=== PATIENT | male | born 1955 | race Caucasian/White ===

== ENCOUNTER 2017-08-26 13:28 | Inpatient (IN) ==
--- NOTE | 2017-08-26 16:18 | Emergency Department Note ---
Disposition Clinical Impression: Liver lesion, right lobe, Abdominal distention Ascites Qualifiers: Ascites type: due to alcoholic cirrhosis Qualified Code(s): K70.31 - Alcoholic cirrhosis of liver with ascites Disposition: Admitted As Inpatient Condition: Good Time of Disposition: 18:27 General Adult HPI - General Chief complaint: ED Abdominal Pain Stated complaint: constipation Time Seen by Provider: 08/26/17 15:34 Source: patient Mode of arrival: ambulatory Limitations: no limitations Nursing Notes Reviewed: Yes Vital Signs Reviewed: Yes - History of Present Illness HPI Narrative: Patient is a 61 year old male that presents to the emergency department for constipation. Patient states that he has been bloated and unable to have a bowel movement for 1 week. Patient states that he was seen about a week ago and was told that he had a urinary tract infection and possible pneumonia and was started on antibiotics. Patient states that his abdomen has continued to become more distended and bloated. Patient states that he has had a temp of about 100. No significant abdominal pain but feels uncomfortable. Patient states that there has been no injuries to the abdomen. Patient states that he use to be a heavy drinker but does not drink like that anymore. Patient reports that he has swelling in bilateral lower extremities but this is normal for him. Pain Scale: 4 - Related Data Home Medications Medication Instructions Recorded Confirmed Aspirin Enteric Coated [Aspirin EC] 81 mg PO DAILY 08/26/17 08/26/17 Cyclobenzaprine HCl 5 mg PO BID PRN 08/26/17 08/26/17 Doxycycline Hyclate 100 mg PO BID 08/26/17 08/26/17 Furosemide [Lasix] 20 mg PO DAILY 08/26/17 08/26/17 Glimepiride [Amaryl] 2 mg PO DAILY 08/26/17 08/26/17 Lisinopril [Zestril] 40 mg PO DAILY 08/26/17 08/26/17 Pioglitazone [Actos] 45 mg PO DAILY 08/26/17 08/26/17 Sulfamethoxazole/Trimeth DS 1 tab PO BID 08/26/17 08/26/17 [Bactrim Ds] Allergies Allergy/AdvReac Type Severity Reaction Status Date / Time shellfish derived Allergy Anaphylaxis Verified 11/08/15 11:29 budesonide [From Symbicort] AdvReac ELEVATED BP Verified 11/08/15 11:29 cilostazol AdvReac SWEATS Verified 11/08/15 11:29 Formoterol [From Symbicort] AdvReac ELEVATED BP Verified 11/08/15 11:29 gabapentin [From Neurontin] AdvReac Confusion Verified 11/08/15 11:29 naproxen [From Naprosyn] AdvReac Nausea Verified 11/08/15 11:29 tramadol AdvReac Nausea Verified 11/08/15 11:29 All systems ED: reviewed and negative except as stated. Constitutional: Denies: fever Cardiovascular: Denies: chest pain Respiratory: Reports: dyspnea Gastrointestinal: Reports: abdominal pain (discomfort), constipation, other ( Distention ) Past Medical History - Past Medical History Medical history: Reports: COPD, diabetes, hypertension, other Surgical history: Reports: herniorrhaphy, other Psychiatric history: Reports: no psych history - Social History Smoking Status: Current every day smoker Smokeless Tobacco Status: No Alcohol use: Reports: heavy Drug use: Reports: none Physical Exam - General Limitations: no limitations General appearance: alert, in no apparent distress - Head Head exam: atraumatic, normocephalic - Eye Eye exam: Present: normal appearance, EOMI - Neck Neck exam: Present: normal inspection, full ROM, trachea midline - Respiratory Respiratory exam: Present: wheezes (Bilaterally). Absent: respiratory distress - Cardiovascular Cardiovascular exam: Present: regular rate, normal rhythm, normal heart sounds, +S1, +S2 - Abdominal Exam Abdominal exam: Present: distention, normal bowel sounds, other (Mild discomfort throughout the abdomen. ). Absent: trauma Abdominal tenderness: Present: diffuse - Extremities Exam Extremities exam: Present: other (1-2+ pitting edema in bilateral lower extremities ) - Neurological Exam Neurological exam: Present: alert, oriented X3 - Psychiatric Psychiatric exam: Present: normal affect, normal mood - Skin Skin exam: Present: warm, dry, intact Course Vital Signs Temperature 97.8 F 08/26/17 13:32 Pulse Rate 94 08/26/17 13:32 Respiratory Rate 22 08/26/17 13:32 Blood Pressure 147/66 08/26/17 13:32 O2 Sat by Pulse Oximetry 97 08/26/17 13:32 Temperature 98.0 F 08/27/17 17:11 Pulse Rate 80 08/27/17 17:11 Respiratory Rate 16 08/27/17 17:11 Blood Pressure 120/65 08/27/17 17:11 O2 Sat by Pulse Oximetry 94 08/27/17 17:11 Oxygen Delivery Oxygen Delivery Room Air Medical Decision Making - MDM Narrative Medical decision making narrative: Due to the patient presenting with abdominal distention and constipation we will obtain laboratory testing including a CBC, BMP, Hepatic panel, Lipase Urinalysis and a CT scan of the abdomen and pelvis. CT scan shows ascites and answer go with hepatic lesions possibly concerning for hepatocellular carcinoma. Urinalysis shows blood in the urine does not show any evidence of infection at this time. Patient does not have an elevated white count. Patient has some elevated LFTs and a decreased albumin. Patient will need to be admitted to the hospital for further evaluation and management. Patient has some mild hyponatremia of 128. I called and spoke with the admitting hospitalist and they have accepted the patient to their service. Patient be admitted to the hospital this time for further evaluation and management. Patient was informed of the CT findings of the ascites and the nodular appearance of the liver and potential for possible cancer. - Medical Records Medical records reviewed: Yes I reviewed the patient's medical records. - Lab Data Lab results reviewed: Yes I reviewed the patient's lab results. Result diagrams: 08/27/17 03:49 08/26/17 16:07 Lab Results 08/26/17 08/26/17 08/26/17 Range/Units 16:07 16:07 16:07 WBC 8.3 (4.3-11.1) K/mcL RBC 3.76 L (4.19-5.50) M/mcL Hgb 13.3 (12.9-16.9) g/dL Hct 39.1 (37.5-50.1) % MCV 104.0 H (83.0-100.0) fL MCH 35.4 H (28.0-33.3) pg MCHC 34.0 (31.6-35.5) g/dL RDW 13.1 (11.5-14.5) % Plt Count 190 (140-400) K/mcL MPV 9.6 (9.4-12.4) fL Immature Gran % 0.4 (0-4) % Seg Neutrophils % 75.3 % Lymphocytes % 16.1 % Monocytes % 6.9 % Eosinophils % 0.7 % Basophils % 0.6 % Neutrophils # 6.3 (1.6-8.9) K/mcL Lymphocytes # 1.3 (0.6-4.6) K/mcL Monocytes # 0.6 (0.0-1.3) K/mcL Eosinophils # 0.1 (0.0-0.6) K/mcL Basophils # 0.1 (0.0-0.2) K/mcL PT 16.6 H (9.4-12.1) Seconds INR 1.5 Sodium 128 L (136-145) mEq/L Potassium 4.4 (3.5-5.1) mEq/L Chloride 95 L (98-107) mEq/L Carbon Dioxide 25 (23-29) mEq/L BUN 13 (8-23) mg/dL Creatinine 1.19 (0.70-1.30) mg/dL Est GFR ( Amer) > 60 (> 60) Est GFR (Non-Af Amer) > 60 (> 60) BUN/Creatinine Ratio 11 (6-26) Glucose 120 H (70-105) mg/dL POC Glucose (70-99) mg/dL Calculated Osmolality 267 L (280-300) Calcium 8.8 (8.6-10.3) mg/dL Total Bilirubin 1.6 H (0.3-1.0) mg/dL Direct Bilirubin 1.0 H (0.0-0.2) mg/dL Indirect Bilirubin 0.6 (0.0-1.2) mg/dL AST 132 H (13-39) Units/L ALT 29 (7-52) Units/L Alkaline Phosphatase 105 H (34-104) Units/L Serum Total Protein 8.4 (6.4-8.9) g/dL Albumin 3.1 L (3.5-5.7) g/dL Globulin 5.3 H (2.4-3.5) g/dL Albumin/Globulin Ratio 0.6 L (1.1-2.2) Lipase 23 (11-82) Units/L Urine Color (Yellow) Urine Clarity (Clear) Urine pH (5.0-8.0) pH Units Ur Specific [place] (1.010-1.025) Urine Protein (Neg-Trace) mg/dL Urine Glucose (UA) (Normal) mg/dL Urine Ketones (Negative) mg/dL Urine Blood (Negative) Urine Nitrite (Negative) Urine Bilirubin (Negative) Urine Urobilinogen (Normal) mg/dL Ur Leukocyte Esterase (Negative) Urine Microscopic RBC (0-3) per hpf Urine Microscopic WBC (0-3) per hpf Ur Squamous Epith Cells (None-Few) per lpf Urine Bacteria (None-Few) per hpf Hyaline Casts (None-Few) per lpf Ur Culture Indicated? (NO) 08/26/17 08/26/17 Range/Units 17:11 21:05 WBC (4.3-11.1) K/mcL RBC (4.19-5.50) M/mcL Hgb (12.9-16.9) g/dL Hct (37.5-50.1) % MCV (83.0-100.0) fL MCH (28.0-33.3) pg MCHC (31.6-35.5) g/dL RDW (11.5-14.5) % Plt Count (140-400) K/mcL MPV (9.4-12.4) fL Immature Gran % (0-4) % Seg Neutrophils % % Lymphocytes % % Monocytes % % Eosinophils % % Basophils % % Neutrophils # (1.6-8.9) K/mcL Lymphocytes # (0.6-4.6) K/mcL Monocytes # (0.0-1.3) K/mcL Eosinophils # (0.0-0.6) K/mcL Basophils # (0.0-0.2) K/mcL PT (9.4-12.1) Seconds INR Sodium (136-145) mEq/L Potassium (3.5-5.1) mEq/L Chloride (98-107) mEq/L Carbon Dioxide (23-29) mEq/L BUN (8-23) mg/dL Creatinine (0.70-1.30) mg/dL Est GFR ( Amer) (> 60) Est GFR (Non-Af Amer) (> 60) BUN/Creatinine Ratio (6-26) Glucose (70-105) mg/dL POC Glucose 95 (70-99) mg/dL Calculated Osmolality (280-300) Calcium (8.6-10.3) mg/dL Total Bilirubin (0.3-1.0) mg/dL Direct Bilirubin (0.0-0.2) mg/dL Indirect Bilirubin (0.0-1.2) mg/dL AST (13-39) Units/L ALT (7-52) Units/L Alkaline Phosphatase (34-104) Units/L Serum Total Protein (6.4-8.9) g/dL Albumin (3.5-5.7) g/dL Globulin (2.4-3.5) g/dL Albumin/Globulin Ratio (1.1-2.2) Lipase (11-82) Units/L Urine Color Dark Yellow (Yellow) Urine Clarity Cloudy A (Clear) Urine pH 5.5 (5.0-8.0) pH Units Ur Specific [place] 1.019 (1.010-1.025) Urine Protein Negative (Neg-Trace) mg/dL Urine Glucose (UA) Normal (Normal) mg/dL Urine Ketones Trace H (Negative) mg/dL Urine Blood Large H (Negative) Urine Nitrite Negative (Negative) Urine Bilirubin Small H (Negative) Urine Urobilinogen Normal (Normal) mg/dL Ur Leukocyte Esterase Negative (Negative) Urine Microscopic RBC 5-15 H (0-3) per hpf Urine Microscopic WBC 0-3 (0-3) per hpf Ur Squamous Epith Cells Many H (None-Few) per lpf Urine Bacteria None Seen (None-Few) per hpf Hyaline Casts None Seen (None-Few) per lpf Ur Culture Indicated? NO (NO) - Radiology Data Radiology results reviewed: Yes I reviewed the patient's radiology results. Abdomen/Pelvis CT 08/26/17 15:51 IMPRESSION: Nodular cirrhotic appearing liver with potential masses seen in the right hepatic lobe. Rule out hepatocellular carcinoma. Paraesophageal and perigastric varices. Left pleural effusion, ascites, and generalized anasarca. Additional incidental findings as detailed above. D/ / Nikita Ramirez MD / Nikita Ramirez MD Interpreting Provider: Nikita Ramirez MD Chest X-Ray 08/26/17 15:52 IMPRESSION: Left pleural effusion with atelectasis of the left lower lobe. D/ / Nikita Ramirez MD / Nikita Ramirez MD Interpreting Provider: Nikita Ramirez MD Attestation Statement - Attestation Attestation: I examined this patient and my medical decision-making was reviewed with the Resident Physician. I agree with the documented findings, disposition and treatment plan as described except to the extent set forth below. New onset ascites, now with worsening abd distention. Will admit to RO hepatocellular carcinoma. Patient non peritoneal at time of admission.
[2017-08-26 16:28] LABS: Basophils # 0.1 K/mcL (0.0-0.2); Basophils % 0.6 %; Eosinophils # 0.1 K/mcL (0.0-0.6); Eosinophils % 0.7 %; Hematocrit 39.1 % (37.5-50.1); Hemoglobin 13.3 g/dL (12.9-16.9); Immature Granulocytes % 0.4 % (0-4); Lymphocytes # 1.3 K/mcL (0.6-4.6); Lymphocytes % 16.1 %; Mean Corpuscular Hemoglobin 35.4 pg (28.0-33.3); Mean Platelet Volume 9.6 fL (9.4-12.4); Monocytes # 0.6 K/mcL (0.0-1.3); Monocytes % 6.9 %; Neutrophils # 6.3 K/mcL (1.6-8.9); Platelet Count 190 K/mcL (140-400); Red Blood Count 3.76 M/mcL (4.19-5.50); Red Cell Distribution Width 13.1 % (11.5-14.5); Segmented Neutrophils % 75.3 %
[2017-08-26 16:46] LABS: Alanine Aminotransferase 29 Units/L (7-52); Albumin 3.1 g/dL (3.5-5.7); Albumin/Globulin Ratio 0.6 (1.1-2.2); Alkaline Phosphatase 105 Units/L (34-104); Aspartate Amino Transferase 132 Units/L (13-39); BUN/Creatinine Ratio 11 (6-26); Bilirubin,Indirect 0.6 mg/dL (0.0-1.2); Bilirubin,Total 1.6 mg/dL (0.3-1.0); Blood Urea Nitrogen 13 mg/dL (8-23); Calcium 8.8 mg/dL (8.6-10.3); Carbon Dioxide 25 mEq/L (23-29); Chloride 95 mEq/L (98-107); Globulin 5.3 g/dL (2.4-3.5); Glucose 120 mg/dL (70-105); Lipase 23 Units/L (11-82); Osmolality,Calculated 267 (280-300); Potassium 4.4 mEq/L (3.5-5.1); Sodium 128 mEq/L (136-145); Total Protein 8.4 g/dL (6.4-8.9); eGFR For African Americans > 60 (> 60); eGFR For Non-African Americans > 60 (> 60)
[2017-08-26 17:26] LABS: Bilirubin,Urine Small (Negative); Blood,Urine Large (Negative); Clarity,Urine Cloudy (Clear); Glucose,Urine (UA) Normal (Normal); Ketones,Urine Trace mg/dL (Negative); Leukocyte Esterase,Urine Negative (Negative); Nitrite,Urine Negative (Negative); PH,Urine 5.5 pH Units (5.0-8.0); Protein,Urine Negative (Neg-Trace); Specific Gravity,Urine 1.019 (1.010-1.025); Urobilinogen,Urine Normal (Normal)
[2017-08-26 17:28] LABS: Bacteria,Urine None Seen per hpf (None-Few); Hyaline Casts,Urine None Seen per lpf (None-Few); Squamous Epithelial Cell,Urine Many per lpf (None-Few); WBC,Urine 0-3 per hpf (0-3)
[2017-08-26 17:31] LABS: Color,Urine Dark Yellow (Yellow)
[2017-08-26] MEDS ORDERED: Nicotine 7 MG PATCH.TD24 TD ONE (18:30)
--- NOTE | 2017-08-26 19:34 | Internal Med History&Physical ---
Date of Encounter: 08/26/17 Time of Encounter: 20:30 Internal Medicine - H&P: HPI Chief complaint: Abdominal pain and distention Admitted From: Home Plans for Post Hospital Care: Home History of present illness: Mr. Brunner is a 61 year old male presented to the emergency department with chief complaint of abdominal pain and constipation. Patient stated that he has been having issues a year ago getting progressed slowly with constipation and getting more swollen. He went to his primary care physician who prescribed still soft but that did not help. Over the last week patient abdomen was getting progressively distended and he had lower extremity swelling as well. Patient was diagnosed with urinary tract infection about a week ago and was treated but his pain did not go away. CT abdomen in the emergency department showed lesions in the right lobe of the liver that was concerning for hepatocellular carcinoma. Patient used to be a heavy drinker in the past but he quit drinking. Patient denied any shortness of breath no chest pain no headache no blurry vision or double vision no urinary problems. Past Med Surg Social Fam HX - Past Medical History Medical history: COPD, diabetes, hypertension, other Additional medical history: DDD/OA. DM - CONTROLLED. HERNIA. 6-8 BEERS DAILY Psychiatric history: no psych history - Past Surgical History Surgical History: herniorrhaphy, other Additional surgical history: HERNIA REPAIR 2003. 11/08/15 L ENDARTERECTOMY/ POSSIBLE ILIAC STENT AND FEM TO FEM BYPASS @[facility] - Social History Smoking Status: Current every day smoker Smokeless Tobacco Status: No Alcohol use: heavy Drug use: none - Additional Family History Additional family history: Patient denied any family history of cancer Internal Medicine - H&P: Meds Aspirin Enteric Coated [Aspirin EC] 81 mg PO DAILY 08/26/17 [History] Cyclobenzaprine HCl 5 mg PO BID PRN 08/26/17 [History] Doxycycline Hyclate 100 mg PO BID 08/26/17 [History] Furosemide [Lasix] 20 mg PO DAILY 08/26/17 [History] Glimepiride [Amaryl] 2 mg PO DAILY 08/26/17 [History] Lisinopril [Zestril] 40 mg PO DAILY 08/26/17 [History] Pioglitazone [Actos] 45 mg PO DAILY 08/26/17 [History] Sulfamethoxazole/Trimeth DS [Bactrim Ds] 1 tab PO BID 07/02/18 [History] 3 Allergy/AdvReac Type Severity Reaction Status Date / Time shellfish derived Allergy Anaphylaxis Verified 11/08/15 11:29 budesonide [From Symbicort] AdvReac ELEVATED BP Verified 11/08/15 11:29 cilostazol AdvReac SWEATS Verified 11/08/15 11:29 Formoterol [From Symbicort] AdvReac ELEVATED BP Verified 11/08/15 11:29 gabapentin [From Neurontin] AdvReac Confusion Verified 11/08/15 11:29 naproxen [From Naprosyn] AdvReac Nausea Verified 11/08/15 11:29 tramadol AdvReac Nausea Verified 11/08/15 11:29 ROS unobtainable: due to mental status All Systems PM: A 10-system review of systems was performed and is negative for pertinent findings except as documented above in the HPI. - Constitutional Vitals: Temp Pulse Resp BP Pulse Ox 97.8 F 94 22 147/66 97 08/26/17 16:18 08/26/17 16:18 08/26/17 16:18 08/26/17 16:18 08/26/17 16:18 General appearance: Present: A&O X 3 - Head Head exam: Present: atraumatic, normocephalic - Eye Eye exam: Present: PERRL, conjuntiva pink, sclera anicteric Pupils: Present: PERRL - Neck Neck exam general surgery: Present: supple, trachea midline. Absent: lymphadenopathy - Respiratory Respiratory exam: Present: CTAB. Absent: accessory muscle use, rales, rhonchi, wheezes - Cardiovascular Cardiovascular exam: Present: RRR, +S1, +S2. Absent: diastolic murmur, gallop, rubs, systolic murmur - GI/Abdominal GI/Abdominal exam: Present: distended (Diffusely distended abdomen. Bowel sounds are distant), rigid Additional comments: Distended abdomen. Bowel sounds are distant - Extremities Exam Extremities exam: Present: pedal edema. Absent: calf tenderness, cyanotic Additional comments: Lower extremities edema bilaterally - Neurological Exam Neurological exam: Present: CN II-XII intact, oriented X3, no focal deficits. Absent: pronater drift, facial droop, speech deficit Internal Med - H&P Results - Labs CBC & Chem 7: 08/26/17 16:07 08/26/17 16:07 - Assessment and plan (1) Ascites Current Visit: Yes Status: Acute Assessment and plan: CT abdomen showing ascites. Concern of underlying hepatocellular carcinoma Consult IR for paracentesis Peritoneal fluid to be sent for analysis, cytology and culture Consult GI, to be called in the morning We will start the patient on Lasix and spironolactone Monitor blood pressure and vital signs Monitor strict I's and O's Monitor and replace electrolytes as needed Monitor respiratory status. Patient now is breathing okay Qualifiers: Qualified Code(s): R18.8 - Other ascites (2) Lower extremity edema Current Visit: Yes Status: Acute Assessment and plan: Probably related to underlying liver cirrhosis, yet to be diagnosed Continue IV Lasix and spironolactone Monitor I's and O's Replace electrolytes as needed (3) Bilateral lower extremity edema Current Visit: Yes Status: Acute (4) History of alcohol dependence Current Visit: Yes Status: Acute Assessment and plan: Patient stated that he used to be a heavy drinker but he is not drinking now (5) Tobacco abuse Current Visit: Yes Status: Acute Assessment and plan: Counseled to quit smoking (6) On esomeprazole prophylaxis Current Visit: Yes Status: Acute (7) DVT prophylaxis Current Visit: Yes Status: Acute Assessment and plan: Check INR May add Lovenox subcutaneous tomorrow if INR is not elevated - Time Spent With Patient Total time spent is greater than 50% in coordination of care (as documented) at patient's floor/unit and/or counseling patient:
[2017-08-26] MEDS ORDERED: Naloxone 0.4 MG/ML INJ IVP PRN (19:43)
[2017-08-26 20:13] LABS: INR 1.5; Prothrombin Time 16.6 Seconds (9.4-12.1)
[2017-08-26] MEDS: Furosemide 40 MG/4 ML VIAL IVP SCH (22:24)
[2017-08-27 04:32] LABS: Basophils # 0.1 K/mcL (0.0-0.2); Basophils % 0.9 %; Eosinophils # 0.2 K/mcL (0.0-0.6); Eosinophils % 2.6 %; Hematocrit 32.7 % (37.5-50.1); Immature Granulocytes % 0.3 % (0-4); Lymphocytes # 1.7 K/mcL (0.6-4.6); Mean Corpuscular HGB Conc 33.9 g/dL (31.6-35.5); Mean Corpuscular Hemoglobin 35.2 pg (28.0-33.3); Mean Corpuscular Volume 103.8 fL (83.0-100.0); Mean Platelet Volume 9.8 fL (9.4-12.4); Monocytes # 0.7 K/mcL (0.0-1.3); Neutrophils # 4.1 K/mcL (1.6-8.9); Platelet Count 158 K/mcL (140-400); Red Blood Count 3.15 M/mcL (4.19-5.50); Red Cell Distribution Width 13.1 % (11.5-14.5); Segmented Neutrophils % 61.2 %
[2017-08-27 04:39] LABS: Hemoglobin 11.1 g/dL (12.9-16.9)
[2017-08-27 04:41] LABS: INR 1.7
[2017-08-27 04:52] LABS: Chol/HDL Ratio 9.8 (0-4.9); Phosphorous 2.8 mg/dL (2.7-4.5)
[2017-08-27] MEDS: *HR* Enoxaparin 40 MG/0.4 ML SYRINGE SQ SCH (05:52)
[2017-08-27] MEDS: Furosemide 40 MG/4 ML VIAL IVP SCH ×2 (08:55→17:52)
[2017-08-27] MEDS ORDERED: *HR* Glimepiride 2 MG TABLET PO SCH (09:00)
[2017-08-27] MEDS ORDERED: Spironolactone 25 MG TABLET PO SCH (09:00)
[2017-08-27] MEDS ORDERED: Lisinopril 20 MG TABLET PO SCH (09:00)
[2017-08-27] MEDS ORDERED: *HR* LORazepam 2 MG/ML VIAL IVP PRN ×3 (11:23)
[2017-08-27] MEDS ORDERED: D5% in Water 1,000 ML IVC PRN (11:26)
[2017-08-27] MEDS ORDERED: *HR* Dextrose 50 % in Water (Syg) 50 ML SYRINGE IVP PRN (11:26)
[2017-08-27] MEDS ORDERED: Dextrose Gel 15 GM/37.5 ML TUBE PO PRN ×2 (11:26)
[2017-08-27] MEDS ORDERED: *HR* Dextrose 50 % in Water (Syg) 50 ML SYRINGE IVP STA (11:48)
[2017-08-27] MEDS: Insulin LISPRO 300 UNITS/3 ML VIAL SQ SCH ×3 (14:14→21:46)
[2017-08-27] MEDS: Aspirin Enteric Coated 81 MG Tablet PO SCH (14:14)
--- NOTE | 2017-08-27 16:25 | Internal Med Progress Note ---
<Wilfrido Avila - Last Filed: 08/27/17 16:58> Date of Encounter: 08/27/17 Time of Encounter: 16:19 - Assessment and plan (1) Cirrhosis Current Visit: Yes Status: Acute Assessment and plan: Patient underwent therapeutic paracentesis today, wherein 5 L of fluid were removed. Gastroenterology was consultation. Patient is currently on Lasix and spironolactone. We will see what GI thinks in terms of outpatient follow-up and possibility of liver biopsy to investigate liver lesions. We will also consider outpatient evaluation and possible endoscopically for esophageal varices. Qualifiers: Hepatic cirrhosis type: alcoholic cirrhosis Ascites presence: with ascites Qualified Code(s): K70.31 - Alcoholic cirrhosis of liver with ascites (2) Pleural effusion associated with hepatic disorder Current Visit: Yes Status: Acute Assessment and plan: Therapeutic paracentesis was performed today, will monitor resolution of pleural effusion with clinical disposition and physical exam. Patient is also on Lasix and spironolactone which should help. (3) Esophageal varices in alcoholic cirrhosis Current Visit: Yes Status: Acute Assessment and plan: Esophageal varices found on CT at admission. Gastroenterology is consulted. We will consider outpatient endoscopic to evaluate esophageal varices after discharge. (4) Diabetes Current Visit: Yes Status: Chronic Assessment and plan: Patient has been started on sliding scale insulin and taken off home oral hypoglycemic agents. This should prevent any further incidence of hypoglycemia. Qualifiers: Diabetes mellitus type: type 2 Diabetes mellitus terminal carman insulin use: without terminal carman use Diabetes mellitus complication status: with hypoglycemia Diabetes mellitus complication detail: without coma Qualified Code(s): E11.649 - Type 2 diabetes mellitus with hypoglycemia without coma (5) Constipation Current Visit: Yes Status: Acute Assessment and plan: Patient has been constipated for approximately 1 week. He was taking over-the- counter stool softeners. he still has not had a bowel movement in the hospital. However he does have positive bowel sounds and flatulence. The patient will reciev one dose of milk of magnesia to see if that helps. Qualifiers: Constipation type: unspecified constipation type Qualified Code(s): K59.00 - Constipation, unspecified (6) Ascites Current Visit: Yes Status: Acute Assessment and plan: Therapeutic paracentesis was performed today resulting in 5 L of fluid removed from the abdomen.GI has been consulted and we will investigate the proper course for this patients cirrhosis causing his ascites. Qualifiers: Ascites type: due to alcoholic cirrhosis Qualified Code(s): K70.31 - Alcoholic cirrhosis of liver with ascites (7) Bilateral lower extremity edema Current Visit: Yes Status: Chronic Assessment and plan: Patient has chronic lower extremity edema. He is currently on lASIX AND SPIRONOLACTONE as wel as DVT prophylaxis. (8) DVT prophylaxis Current Visit: Yes Status: Acute Assessment and plan: Patient is receiving subcutaneous Lovenox 40 mg. (9) Liver mass Current Visit: Yes Status: Acute Assessment and plan: Liver lesion concerning for hepatocellular carcinoma was found on CT on admission. Gastroenterology has been consult and we will consider liver biopsy in an outpatient setting to evaluate this. - Time Spent With Patient Total time spent is greater than 50% in coordination of care (as documented) at patient's floor/unit and/or counseling patient: - Subjective Interval history: Patient seen and examined this morning. patient agreed to and understood plan to perform paracentesis this afternoon. Patient denies any change in constipation symptoms or abdominal distention. Overnight the patient glucose dropped down to 53 and he ate some jellybeans for his hypoglycemia at which point his glucose came back up to 78. He denied any nausea or vomiting or abdominal pain. He also denied any chest pain or shortness of breath - Constitutional Vitals: Temp Pulse Resp BP Pulse Ox 98.5 F 87 16 123/64 97 08/27/17 11:35 08/27/17 11:35 08/27/17 11:35 08/27/17 11:35 08/27/17 11:35 General appearance: Present: A&O X 3 Exam: Patient resting comfortably in bed. Heart regular rate and rhythm without murmur rub or gallop. Lungs exhibited expiratory wheeze with decreased breath sounds in the left lower lobe, otherwise normal. Bilateral lower extremities exhibited 2+ pitting edema. Abdomen severely distended firm however nontender to palpation. Patient did have positive bowel sounds and did have flatulence while I was in the room. Internal Medicine: Result - Labs CBC & Chem 7: 08/27/17 03:49 08/26/17 16:07 Labs: Short CBC 08/27/17 Range/Units 03:49 WBC 6.6 (4.3-11.1) K/mcL Hgb 11.1 L D (12.9-16.9) g/dL Hct 32.7 L (37.5-50.1) % Plt Count 158 (140-400) K/mcL Neutrophils # 4.1 (1.6-8.9) K/mcL - ABG Interpretation ABG results: PT/INR, D-dimer PT 19.0 Seconds (9.4-12.1) H 08/27/17 03:49 - Diagnostic Studies CT scan - abdomen Additional comments: CT/CT abd pelvis wo no iv no oral IMPRESSION: Nodular cirrhotic appearing liver with potential masses seen in the right hepatic lobe. Rule out hepatocellular carcinoma. Paraesophageal and perigastric varices. Left pleural effusion, ascites, and generalized anasarca. Consult Discharge Plan - Plan Referrals: Jannette Medina CNP [Primary Care Provider] - <Sanam Carrillo - Last Filed: 08/27/17 21:44> Date of Encounter: 08/27/17 - Assessment and plan (1) Ascites Current Visit: Yes Status: Acute Qualifiers: Ascites type: due to alcoholic cirrhosis Qualified Code(s): K70.31 - Alcoholic cirrhosis of liver with ascites (2) Bilateral lower extremity edema Current Visit: Yes Status: Chronic (3) DVT prophylaxis Current Visit: Yes Status: Acute (4) Cirrhosis Current Visit: Yes Status: Acute Qualifiers: Hepatic cirrhosis type: alcoholic cirrhosis Ascites presence: with ascites Qualified Code(s): K70.31 - Alcoholic cirrhosis of liver with ascites (5) Pleural effusion associated with hepatic disorder Current Visit: Yes Status: Acute (6) Esophageal varices in alcoholic cirrhosis Current Visit: Yes Status: Acute (7) Diabetes Current Visit: Yes Status: Chronic Qualifiers: Diabetes mellitus type: type 2 Diabetes mellitus mcc insulin use: without terminal carman use Diabetes mellitus complication status: with hypoglycemia Diabetes mellitus complication detail: without coma Qualified Code(s): E11.649 - Type 2 diabetes mellitus with hypoglycemia without coma (8) Constipation Current Visit: Yes Status: Acute Qualifiers: Constipation type: unspecified constipation type Qualified Code(s): K59.00 - Constipation, unspecified (9) Liver mass Current Visit: Yes Status: Acute - Time Spent With Patient Total time spent is greater than 50% in coordination of care (as documented) at patient's floor/unit and/or counseling patient: - Constitutional Vitals: Temp Pulse Resp BP Pulse Ox 98.0 F 80 16 120/65 94 08/27/17 17:11 08/27/17 17:11 08/27/17 17:11 08/27/17 17:11 08/27/17 17:11 Internal Medicine: Result - Labs CBC & Chem 7: 08/27/17 03:49 08/26/17 16:07 Labs: Short CBC 08/27/17 Range/Units 03:49 WBC 6.6 (4.3-11.1) K/mcL Hgb 11.1 L D (12.9-16.9) g/dL Hct 32.7 L (37.5-50.1) % Plt Count 158 (140-400) K/mcL Neutrophils # 4.1 (1.6-8.9) K/mcL - ABG Interpretation ABG results: PT/INR, D-dimer PT 19.0 Seconds (9.4-12.1) H 08/27/17 03:49 - Attending Attestation I examined this patient and my medical decision-making was reviewed with the Resident Physician. I agree with the documented findings, disposition and treatment plan as described except to the extent set forth below. Patient had paracentesis done today, 5 L fluid removed. Exam today shows patient in no acute distress, CVS and respiratory exam unremarkable. He is currently feeling well. States he is passing flatus. He states he has note had any bowel movement, but has noted to resident physician that he has had watery diarrhea. CT abdomen showed mild stool, no excessive burden. Also significant for cirrhosis of liver and paragastric and paraesophageal varicies. Possibly patient has sensation of constipation may be from abdominal ascites. Will monitor now that fluid removed. Has history of ETOH abuse. Patient and at bedside state that he used to drink several beers daily but now drinks one beer per night, last drink was two days ago. Will await further GI recommendations, reassess fluid status, CIWA monitoring. Sodium low at 128, may change as fluid removed. Creatinine was 1.19 within normal but note that Cr was 0.68, will need monitoring of renal function. Until renal function is established, will hold today's dose of lisinopril. If renal function is stable, resume lisinopril tomorrow.
[2017-08-27] MEDS ORDERED: MOM Conc 10 ML UD.LIQ PO ONE (16:47)
--- NOTE | 2017-08-27 16:55 | Procedure Note ---
Date of procedure: 08/27/17 Pre-op diagnosis: ascites Post-op diagnosis: same Procedure: Consent for operation or procedure: Risks and benefits discussed with patient and consent obtained Anesthesia: 5 cc of Lidocaine Patient positioned supine. Abdomen examined with ultrasound for appropriate site placement. Site marked and prepared with swabs of betadine. Site draped with sterile dressing. Wheel of lidocaine placed. Lidocaine then introduced deep to the peritoneum. Skin punctured with an? blade scalpel. Paracentesis needle was placed through the skin into the abdominal cavity. The needle was withdrawn and the site cleaned and bandaged with gauze and tape. Samples were sent to the lab for analysis. Yellow, Clear colored was fluid removed Amount of fluid removed: 5L Estimated Blood Loss: minimal Complications: The patient tolerated the procedure well without complications. Surgeon: Dutch Upton Was there an human resources executive assistant present: No Estimated blood loss (cc): 5 Specimen: Sent Condition: stable Disposition: floor
[2017-08-27 17:06] LABS: Amylase,Peritoneal Fluid < 10 Units/L (No Ref Range); Glucose,Peritoneal Fluid 105 mg/dL (No Ref Range); LDH,Peritoneal Fluid 49 Units/L (No Ref Range); Total Protein,Peritoneal Fluid < 3.0 g/dL (No Ref Range)
[2017-08-27 18:54] LABS: RBC,Peritoneal Fluid < 0.002 M/mcL
[2017-08-27 18:56] LABS: Appearance of Peritoneal Fl CLEAR (Clear)
[2017-08-28 03:17] LABS: Hepatitis A Antibody IgM Nonreactive (Nonreactive); Hepatitis B Core IgM Nonreactive (Nonreactive); Hepatitis B Surface Antigen Nonreactive (Nonreactive); Hepatitis C Virus Antibody Nonreactive (Nonreactive)
[2017-08-28 04:32] LABS: Basophils % 0.5 %; Eosinophils # 0.1 K/mcL (0.0-0.6); Eosinophils % 2.2 %; Hematocrit 33.3 % (37.5-50.1); Hemoglobin 11.5 g/dL (12.9-16.9); Immature Granulocytes % 0.3 % (0-4); Lymphocytes # 1.6 K/mcL (0.6-4.6); Mean Corpuscular HGB Conc 34.5 g/dL (31.6-35.5); Mean Corpuscular Hemoglobin 36.4 pg (28.0-33.3); Mean Corpuscular Volume 105.4 fL (83.0-100.0); Mean Platelet Volume 9.5 fL (9.4-12.4); Monocytes # 0.7 K/mcL (0.0-1.3); Monocytes % 11.6 %; Neutrophils # 3.6 K/mcL (1.6-8.9); Platelet Count 140 K/mcL (140-400); Red Blood Count 3.16 M/mcL (4.19-5.50); Red Cell Distribution Width 12.9 % (11.5-14.5); Segmented Neutrophils % 59.4 %
[2017-08-28 04:51] LABS: BUN/Creatinine Ratio 13 (6-26); Blood Urea Nitrogen 16 mg/dL (8-23); Carbon Dioxide 27 mEq/L (23-29); Chloride 103 mEq/L (98-107); Glucose 95 mg/dL (70-105); Osmolality,Calculated 277 (280-300); Potassium 4.3 mEq/L (3.5-5.1); Sodium 133 mEq/L (136-145); eGFR For African Americans > 60 (> 60); eGFR For Non-African Americans > 60 (> 60)
[2017-08-28] MEDS: *HR* Enoxaparin 40 MG/0.4 ML SYRINGE SQ SCH (06:27)
[2017-08-28] MEDS: Insulin LISPRO 300 UNITS/3 ML VIAL SQ SCH ×4 (08:43→20:48)
[2017-08-28] MEDS: Thiamine (B-1) 100 MG TABLET PO SCH (08:53)
[2017-08-28] MEDS: Folic Acid 1 MG TABLET PO SCH (08:53)
[2017-08-28] MEDS: Aspirin Enteric Coated 81 MG Tablet PO SCH (08:53)
[2017-08-28] MEDS: Vitamin B Complex/Vit C/Vit E 1 EACH TABLET PO SCH (08:53)
--- NOTE | 2017-08-28 14:04 | Internal Med Progress Note ---
<Wilfrido Avila - Last Filed: 08/28/17 14:02> Date of Encounter: 08/28/17 Time of Encounter: 14:02 - Assessment and plan (1) Cirrhosis Current Visit: Yes Status: Acute Assessment and plan: Gastroenterology has been consulted to advise on outpatient management of this patients cirrrhosis. His ascites has rebounded partially since his paracentesis. We will attempt ot pull fluids off with lasix and spironolactone, or consider a repeat a paracentesis if necessary. Qualifiers: Hepatic cirrhosis type: alcoholic cirrhosis Ascites presence: with ascites Qualified Code(s): K70.31 - Alcoholic cirrhosis of liver with ascites (2) Pleural effusion associated with hepatic disorder Current Visit: Yes Status: Acute Assessment and plan: There was a pleural effusion present on MRI at admission, associatedwith cirrhotic fluid retention. Since paracentesis the patient no longer has clinical signs of pleural effusion. The plan will just be to monitor at tis time. (3) Esophageal varices in alcoholic cirrhosis Current Visit: Yes Status: Acute Assessment and plan: The patient has stable esophageal and gastric varices for which we have consulted GI for outpatient endoscopy and follow up. (4) Diabetes Current Visit: Yes Status: Chronic Assessment and plan: Patient has controlled chronic diabetes for which we have him on sliding scale insulin. Qualifiers: Diabetes mellitus type: type 2 Diabetes mellitus top screw insulin use: without usp use Diabetes mellitus complication status: with hypoglycemia Diabetes mellitus complication detail: without coma Qualified Code(s): E11.649 - Type 2 diabetes mellitus with hypoglycemia without coma (5) Constipation Current Visit: Yes Status: Resolved Assessment and plan: Patient had a bowel movement this morning with active bowel sounds on exam. At this point we will continue to monitor that the patient stays regular, if not we will consider another dose of laxatives. Qualifiers: Constipation type: unspecified constipation type Qualified Code(s): K59.00 - Constipation, unspecified (6) Ascites Current Visit: Yes Status: Acute Assessment and plan: Cirrhotic ascites, relieved by paracentesis yesterday. His abdomen has refilled since procedure, we will utilize lasix and spironolactone to achiev maintained fluid level appropriate for discharge and outpatient management. Will consider repeat paracentesis if we cannot get the fluid off. Qualifiers: Ascites type: due to alcoholic cirrhosis Qualified Code(s): K70.31 - Alcoholic cirrhosis of liver with ascites (7) Bilateral lower extremity edema Current Visit: Yes Status: Chronic Assessment and plan: Due to cirrhotic ascites and fluid overload, managing ascites with diuretics. (8) DVT prophylaxis Current Visit: Yes Status: Acute Assessment and plan: Lovenox for DVT prophylaxis while in the hospital. (9) Liver mass Current Visit: Yes Status: Acute Assessment and plan: Liver mass was seen on admission MRI. Follow up liver ultrasound did not identify the mass and recommended follow up MRI. We will see what GI thinks about further investigation. - Time Spent With Patient Total time spent is greater than 50% in coordination of care (as documented) at patient's floor/unit and/or counseling patient: - Subjective Interval history: Patient on discussion this morning feels much better after his paracentesis. H states he has also finally had a bowel movement, and has started eating. I discussed with him his lab results and diagnosis of cirrhosis and that it would require outpatient follow up.He denies, nausea, vomiting, chest pain, shortness of breath, fever or chills. - Constitutional Vitals: Temp Pulse Resp BP Pulse Ox 98.3 F 79 18 98/67 97 08/28/17 07:19 08/28/17 07:19 08/28/17 07:19 08/28/17 07:19 08/28/17 07:19 General appearance: Present: A&O X 3 Exam: Patient is alert and oriented x3. heart is in regular rate and rhythm without murmur or kia. lungs are clear to auscultation bilaterally without adventitious sounds Motor Strength is 5/5 in all 4 extremities. Patients abdomen is firm and distended, but is not tender to palpation. He has active bowel sounds. Internal Medicine: Result - Labs CBC & Chem 7: 08/28/17 04:13 08/28/17 04:13 Labs: Short CBC 08/28/17 Range/Units 04:13 WBC 6.0 (4.3-11.1) K/mcL Hgb 11.5 L (12.9-16.9) g/dL Hct 33.3 L (37.5-50.1) % Plt Count 140 (140-400) K/mcL Neutrophils # 3.6 (1.6-8.9) K/mcL BMP 08/28/17 04:13 Sodium 133 L Potassium 4.3 Chloride 103 Carbon Dioxide 27 BUN 16 Creatinine 1.21 Glucose 95 Calcium 8.0 L - ABG Interpretation ABG results: PT/INR, D-dimer PT 19.0 Seconds (9.4-12.1) H 08/27/17 03:49 - Impressions Impressions Liver Ultrasound 08/27/17 20:00 IMPRESSION: 1. Cirrhosis. No focal hepatic lesion identified. Please consider further evaluation of the previously demonstrated liver lesions with contrast-enhanced MRI. 2. Diffuse gallbladder wall thickening without cholelithiasis. This is nonspecific but can be seen in the setting of cirrhosis or hypoproteinemia. 3. Ascites. D/ / Clyde Valdivia MD / Clyde Valdivia MD Interpreting Provider: Clyde Valdivia MD - Diagnostic Studies US - abdomen Additional comments: US/US liver IMPRESSION: 1. Cirrhosis. No focal hepatic lesion identified. Please consider further evaluation of the previously demonstrated liver lesions with contrast-enhanced MRI. 2. Diffuse gallbladder wall thickening without cholelithiasis. This is nonspecific but can be seen in the setting of cirrhosis or hypoproteinemia. 3. Ascites. Consult Discharge Plan - Plan Referrals: Jannette Medina CNP [Primary Care Provider] - (appt.requested) <[email or web address] - Last Filed: 08/28/17 17:58> Date of Encounter: 08/28/17 - Assessment and plan (1) Ascites Current Visit: Yes Status: Acute Qualifiers: Ascites type: due to alcoholic cirrhosis Qualified Code(s): K70.31 - Alcoholic cirrhosis of liver with ascites (2) Bilateral lower extremity edema Current Visit: Yes Status: Chronic (3) DVT prophylaxis Current Visit: Yes Status: Acute (4) Cirrhosis Current Visit: Yes Status: Acute Qualifiers: Hepatic cirrhosis type: alcoholic cirrhosis Ascites presence: with ascites Qualified Code(s): K70.31 - Alcoholic cirrhosis of liver with ascites (5) Pleural effusion associated with hepatic disorder Current Visit: Yes Status: Acute (6) Esophageal varices in alcoholic cirrhosis Current Visit: Yes Status: Acute (7) Diabetes Current Visit: Yes Status: Chronic Qualifiers: Diabetes mellitus type: type 2 Diabetes mellitus usp insulin use: without top screw use Diabetes mellitus complication status: with hypoglycemia Diabetes mellitus complication detail: without coma Qualified Code(s): E11.649 - Type 2 diabetes mellitus with hypoglycemia without coma (8) Constipation Current Visit: Yes Status: Resolved Qualifiers: Constipation type: unspecified constipation type Qualified Code(s): K59.00 - Constipation, unspecified (9) Liver mass Current Visit: Yes Status: Acute - Time Spent With Patient Total time spent is greater than 50% in coordination of care (as documented) at patient's floor/unit and/or counseling patient: - Constitutional Vitals: Temp Pulse Resp BP Pulse Ox 97.8 F 91 18 124/72 97 08/28/17 16:29 08/28/17 16:29 08/28/17 16:29 08/28/17 16:29 08/28/17 16:29 Internal Medicine: Result - Labs CBC & Chem 7: 08/28/17 04:13 08/28/17 04:13 Labs: Short CBC 08/28/17 Range/Units 04:13 WBC 6.0 (4.3-11.1) K/mcL Hgb 11.5 L (12.9-16.9) g/dL Hct 33.3 L (37.5-50.1) % Plt Count 140 (140-400) K/mcL Neutrophils # 3.6 (1.6-8.9) K/mcL BMP 08/28/17 04:13 Sodium 133 L Potassium 4.3 Chloride 103 Carbon Dioxide 27 BUN 16 Creatinine 1.21 Glucose 95 Calcium 8.0 L - ABG Interpretation ABG results: PT/INR, D-dimer PT 19.0 Seconds (9.4-12.1) H 08/27/17 03:49 - Impressions Impressions Liver Ultrasound 08/27/17 20:00 IMPRESSION: 1. Cirrhosis. No focal hepatic lesion identified. Please consider further evaluation of the previously demonstrated liver lesions with contrast-enhanced MRI. 2. Diffuse gallbladder wall thickening without cholelithiasis. This is nonspecific but can be seen in the setting of cirrhosis or hypoproteinemia. 3. Ascites. D/ / Clyde Valdivia MD / Clyde Valdivia MD Interpreting Provider: Clyde Valdivia MD - Attending Attestation I examined this patient and my medical decision-making was reviewed with the Resident Physician. I agree with the documented findings, disposition and treatment plan as described except to the extent set forth below. Patient states he feels improved. It is noted today that some edema has improved and on my exam does show some improvement of ascites. I was told later in the day fluid did re accumulate. This was possibly from Diuretics held this AM due to concern of renal function. Benefits outweight risks at this point for diuresing patient. Will continue Lasix with spironolactone. Need close monitoring of fluid status and renal function. If fluid still builds up may need another paracentesis.
[2017-08-28] MEDS ORDERED: Furosemide 40 MG/4 ML VIAL IVP ONE (16:22)
[2017-08-28] MEDS: Nicotine 21 MG PATCH.TD24 TD SCH (20:40)
[2017-08-29] MEDS: *HR* Enoxaparin 40 MG/0.4 ML SYRINGE SQ SCH (05:28)
[2017-08-29 07:22] VITALS: BP 121/73
[2017-08-29] MEDS: Insulin LISPRO 300 UNITS/3 ML VIAL SQ SCH ×2 (07:50→12:04)
[2017-08-29] MEDS: Aspirin Enteric Coated 81 MG Tablet PO SCH (08:03)
[2017-08-29] MEDS: Folic Acid 1 MG TABLET PO SCH (08:03)
[2017-08-29] MEDS: Thiamine (B-1) 100 MG TABLET PO SCH (08:03)
[2017-08-29] MEDS: Vitamin B Complex/Vit C/Vit E 1 EACH TABLET PO SCH (08:03)
[2017-08-29] MEDS: Nicotine 21 MG PATCH.TD24 TD SCH (08:04)
[2017-08-29 08:36] LABS: AFP Tumor Marker Non-Pregnant 3 ng/mL (0-9)
[2017-08-29 08:42] LABS: ANA IgG by ELISA NONE DETECTED (None Detected); F-Actin (sm muscle) Ab IgG 27 Units (0-19)
[2017-08-29 08:50] LABS: Basophils # 0.1 K/mcL (0.0-0.2); Basophils % 0.7 %; Eosinophils # 0.2 K/mcL (0.0-0.6); Eosinophils % 3.3 %; Hematocrit 40.2 % (37.5-50.1); Immature Granulocytes % 0.1 % (0-4); Lymphocytes # 1.8 K/mcL (0.6-4.6); Mean Corpuscular HGB Conc 34.3 g/dL (31.6-35.5); Mean Corpuscular Hemoglobin 36.2 pg (28.0-33.3); Mean Corpuscular Volume 105.5 fL (83.0-100.0); Mean Platelet Volume 9.4 fL (9.4-12.4); Monocytes # 0.5 K/mcL (0.0-1.3); Monocytes % 7.4 %; Neutrophils # 4.4 K/mcL (1.6-8.9); Platelet Count 149 K/mcL (140-400); Red Blood Count 3.81 M/mcL (4.19-5.50); Red Cell Distribution Width 12.8 % (11.5-14.5); Segmented Neutrophils % 62.5 %
[2017-08-29 08:57] LABS: Hemoglobin 13.8 g/dL (12.9-16.9)
[2017-08-29] MEDS ORDERED: Furosemide 40 MG/4 ML VIAL IVP SCH (09:00)
[2017-08-29] MEDS ORDERED: Furosemide 40 MG TABLET PO SCH (09:00)
[2017-08-29 09:10] LABS: BUN/Creatinine Ratio 14 (6-26); Blood Urea Nitrogen 13 mg/dL (8-23); Calcium 9.1 mg/dL (8.6-10.3); Carbon Dioxide 28 mEq/L (23-29); Chloride 101 mEq/L (98-107); Glucose 112 mg/dL (70-105); Osmolality,Calculated 279 (280-300); Potassium 4.2 mEq/L (3.5-5.1); Sodium 134 mEq/L (136-145); eGFR For African Americans > 60 (> 60); eGFR For Non-African Americans > 60 (> 60)
--- NOTE | 2017-08-29 10:31 | Internal Med Progress Note ---
<AvilaKiraWilfrido Radha - Last Filed: 08/29/17 13:38> Date of Encounter: 08/29/17 Time of Encounter: 10:28 - Assessment and plan (1) Cirrhosis Current Visit: Yes Status: Acute Assessment and plan: Patient has been diuresed to greatly improved clinincal dispostion, informed of plan for outpatient management of cirrhosis, gastroenterology consulted and involved. We willl also repeat BMP in several days to monitor. Qualifiers: Hepatic cirrhosis type: alcoholic cirrhosis Ascites presence: with ascites Qualified Code(s): K70.31 - Alcoholic cirrhosis of liver with ascites (2) Pleural effusion associated with hepatic disorder Current Visit: Yes Status: Resolved Assessment and plan: Diuresed and ascites improved, pleural effusion clinically improved without symptoms or physical exam findings. Repeat CXR to confirm resolution. (3) Esophageal varices in alcoholic cirrhosis Current Visit: Yes Status: Acute Assessment and plan: Asymptomatic stable esophageal and gastric varices found on CT. Ascites and cirrhosis adressed, advised patient of plan for outpatient endoscopy and medical treatment. (4) Diabetes Current Visit: Yes Status: Chronic Assessment and plan: Patient has controlled chronic diabetes for which we have him on sliding scale insulin. 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 At this point we will continue to monitor that the patient stays regular, if not we will consider another dose of laxatives. Qualifiers: Constipation type: unspecified constipation type Qualified Code(s): K59.00 - Constipation, unspecified (6) Ascites Current Visit: Yes Status: Acute Assessment and plan: Ascites improved with increased diuresis, plan to manage outpatient Qualifiers: Ascites type: due to alcoholic cirrhosis Qualified Code(s): K70.31 - Alcoholic cirrhosis of liver with ascites (7) Bilateral lower extremity edema Current Visit: Yes Status: Chronic Assessment and plan: Related to ascites, improved today (8) DVT prophylaxis Current Visit: Yes Status: Acute Assessment and plan: Lovenox for DVT prophylaxis while in the hospital. (9) Liver mass Current Visit: Yes Status: Acute Assessment and plan: Patient will receive MRI before discharge and will follow up outpatient with GI - Time Spent With Patient Total time spent is greater than 50% in coordination of care (as documented) at patient's floor/unit and/or counseling patient: - Subjective Interval history: Patient doing well this morning. His abdominal distension has decreased this morning. He has also had a solid bowel movement. He states hes ready to go home. - Constitutional Vitals: Temp Pulse Resp BP Pulse Ox 99.1 F 95 17 121/73 97 08/28/17 22:00 08/29/17 07:18 08/29/17 07:18 08/29/17 07:18 08/29/17 07:18 General appearance: Present: A&O X 3 Exam: Patient in no acute distress Alert and oriented x3 Abdomen is firm and distended but much less than admission, non tender heart regular rate and rhythm without murmur/rub/kia lungs clear to auscultation bilaterally with bilateral expiratory wheeze Internal Medicine: Result - Labs CBC & Chem 7: 08/29/17 08:31 08/29/17 08:31 Labs: Short CBC 08/29/17 Range/Units 08:31 WBC 7.0 (4.3-11.1) K/mcL Hgb 13.8 D (12.9-16.9) g/dL Hct 40.2 (37.5-50.1) % Plt Count 149 (140-400) K/mcL Neutrophils # 4.4 (1.6-8.9) K/mcL BMP 08/29/17 08:31 Sodium 134 L Potassium 4.2 Chloride 101 Carbon Dioxide 28 BUN 13 Creatinine 0.91 Glucose 112 H Calcium 9.1 - ABG Interpretation ABG results: PT/INR, D-dimer PT 19.0 Seconds (9.4-12.1) H 08/27/17 03:49 Consult Discharge Plan - Plan Instructions: Spironolactone (By mouth), Furosemide (By mouth), Ascites (DC) Referrals: Jannette Medina CNP [Primary Care Provider] - 09/03/17 1:00 pm () Manish Temple MD [Partnered Physician] - (requested an appointment the office should call patient at home with appoinment date and time. if you have not heard from them by next wednesday please call them) Prescriptions: Furosemide [Lasix] 40 mg PO DAILY #30 tablet Spironolactone [Aldactone] 100 mg PO DAILY #30 tablet <Nadeem Carrilloul Ninaruthy - Last Filed: 08/29/17 15:39> Date of Encounter: 08/29/17 - Assessment and plan (1) Ascites Current Visit: Yes Status: Chronic Qualifiers: Ascites type: due to alcoholic cirrhosis Qualified Code(s): K70.31 - Alcoholic cirrhosis of liver with ascites (2) Bilateral lower extremity edema Current Visit: Yes Status: Chronic (3) DVT prophylaxis Current Visit: Yes Status: Acute (4) Cirrhosis Current Visit: Yes Status: Chronic Qualifiers: Hepatic cirrhosis type: alcoholic cirrhosis Ascites presence: with ascites Qualified Code(s): K70.31 - Alcoholic cirrhosis of liver with ascites (5) Pleural effusion associated with hepatic disorder Current Visit: Yes Status: Resolved (6) Esophageal varices in alcoholic cirrhosis Current Visit: Yes Status: Chronic (7) Diabetes Current Visit: Yes Status: Chronic Qualifiers: Diabetes mellitus type: type 2 Diabetes mellitus fpc insulin use: without fpc use Diabetes mellitus complication status: with hypoglycemia Diabetes mellitus complication detail: without coma Qualified Code(s): E11.649 - Type 2 diabetes mellitus with hypoglycemia without coma (8) Constipation Current Visit: Yes Status: Resolved Qualifiers: Constipation type: unspecified constipation type Qualified Code(s): K59.00 - Constipation, unspecified (9) Liver mass Current Visit: Yes Status: Acute - Time Spent With Patient Total time spent is greater than 50% in coordination of care (as documented) at patient's floor/unit and/or counseling patient: - Constitutional Vitals: Temp Pulse Resp BP Pulse Ox 99.1 F 95 17 121/73 97 08/28/17 22:00 08/29/17 07:18 08/29/17 07:18 08/29/17 07:18 08/29/17 07:18 Internal Medicine: Result - Labs CBC & Chem 7: 08/29/17 08:31 08/29/17 08:31 Labs: Short CBC 08/29/17 Range/Units 08:31 WBC 7.0 (4.3-11.1) K/mcL Hgb 13.8 D (12.9-16.9) g/dL Hct 40.2 (37.5-50.1) % Plt Count 149 (140-400) K/mcL Neutrophils # 4.4 (1.6-8.9) K/mcL BMP 08/29/17 08:31 Sodium 134 L Potassium 4.2 Chloride 101 Carbon Dioxide 28 BUN 13 Creatinine 0.91 Glucose 112 H Calcium 9.1 - ABG Interpretation ABG results: PT/INR, D-dimer PT 19.0 Seconds (9.4-12.1) H 08/27/17 03:49 - Impressions Impressions Chest X-Ray 08/29/17 10:32 IMPRESSION: Persistent small to moderate left pleural effusion and volume loss and/or pneumonia within the left lower lobe. D/ / Arie Amaro MD / Arie Amaro MD Interpreting Provider: Arie Amaro MD - Attending Attestation I examined this patient and my medical decision-making was reviewed with the Resident Physician. I agree with the documented findings, disposition and treatment plan as described except to the extent set forth below. Patient being discharged today, please see discharge summary.
--- NOTE | 2017-08-29 13:46 | Discharge Summary ---
- NOTES TO OUTPATIENT PROVIDER Notes to Outpatient Provider: Patient with newly diagnosed cirrhosis, likely secondary to alcohol. Ascites managed by paracentesis (5L) and diuresis with Lasix (40) and Spironolactone (100). Liver mass and gastric/esophageal varices were found on CT at admission, liver ultrasound and AFP were negative, patient is recieving MRI before discharge. Gastroenterology has been involved, patient has been advised to follow up outpatient for management. Orders not resulted at time of discharge: Pending orders 08/27/17 13:16 MPO/PR3 ([facility]) Antibodies Routine Mitochondrial M2 Antibody, IgG Routine 08/29/17 09:23 BMP [Basic Metabolic Panel] AM 0400 CBC no Diff [Complete Blood Count w/o Diff] [HEME] Routine 08/29/17 16:58 Prealbumin Routine Date of Encounter: 08/29/17 Time of Encounter: 13:43 - Discharge Diagnosis (1) Cirrhosis Priority: Primary Status: Chronic Qualifiers: Hepatic cirrhosis type: alcoholic cirrhosis Ascites presence: with ascites Qualified Code(s): K70.31 - Alcoholic cirrhosis of liver with ascites (2) Esophageal varices in alcoholic cirrhosis Priority: Secondary Status: Chronic (3) Diabetes Priority: Secondary Status: Chronic Qualifiers: Diabetes mellitus type: type 2 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 termite control service representative use Diabetes mellitus complication status: with hypoglycemia Diabetes mellitus complication detail: without coma Qualified Code(s): E11.649 - Type 2 diabetes mellitus with hypoglycemia without coma (4) Liver mass Priority: Secondary Status: Acute (5) Ascites Priority: Secondary Status: Chronic Qualifiers: Ascites type: due to alcoholic cirrhosis Qualified Code(s): K70.31 - Alcoholic cirrhosis of liver with ascites (6) Bilateral lower extremity edema Priority: Secondary Status: Chronic (7) DVT prophylaxis Priority: Secondary Status: Acute Hospital course: Mr. Brunner is a 61 year old male with a past medical history of COPD, Diabetes, Hypertension, Tobaccoism, and chronic alcohol presented to the emergency department on 08/26/17 with the chief complaints of abdominal pain and distension , and constipation. He had also notice leg swelling and was treated for UTI and constipation at his primary care without relief. He received a CT on admission that showed a cirrhotic liver with mass suspicious for hepatocellular carcinoma , ascites, and gastric/esophageal varices. Therapeutic paracentesis was performed on 08/27/17 wherein 5L of peritoneal fluid was removed and sent to pathology, with no abnormalities. Gastroenterology was consulted and AFP was ordered. Lasix and Spironolactone were also started. Liver ultrasound was unable to further visualize the liver mass. On 08/28/17 his ascites started to re- accumulate, so he was diuresed more aggressively. On 08/29/17 his clinical disposition was greatly improved. The patient was deemed stable for outpatient management and gastroenterology agreed. The patient was educated on the importance of a fluid and salt resticted diet with high protein intake. He was also scheduled up for follow up appointments with his primary care and gastroenterology within 3-5 days, with notes to schedule MRI for further investigation of his liver mass. His home meds were continued and he was also prescribed 40mg Lasix and 100 mg Spironolactone daily for ascites management. Discharge discussed with: patient, family, nurse Time spent discussing smoking cessation with patient: 3 to 10 minutes - Time Spent with Patient Total time spent providing and/or coordinating discharge services: Greater than 30 minutes - Discharge Medications Prescriptions: Furosemide [Lasix] 40 mg PO DAILY #30 tablet Spironolactone [Aldactone] 100 mg PO DAILY #30 tablet Home Medications: Aspirin Enteric Coated [Aspirin EC] 81 mg PO DAILY 08/26/17 [History] Cyclobenzaprine HCl 5 mg PO BID PRN 08/26/17 [History] Glimepiride [Amaryl] 2 mg PO DAILY 08/26/17 [History] Lisinopril [Zestril] 40 mg PO DAILY 08/26/17 [History] Pioglitazone [Actos] 45 mg PO DAILY 08/26/17 [History] Furosemide [Lasix] 40 mg PO DAILY #30 tablet 08/29/17 [Rx] Spironolactone [Aldactone] 100 mg PO DAILY #30 tablet 08/29/17 [Rx] Allergies/Adverse Reactions: 3 Allergy/AdvReac Type Severity Reaction Status Date / Time shellfish derived Allergy Anaphylaxis Verified 11/08/15 11:29 budesonide [From Symbicort] AdvReac ELEVATED BP Verified 11/08/15 11:29 cilostazol AdvReac SWEATS Verified 11/08/15 11:29 Formoterol [From Symbicort] AdvReac ELEVATED BP Verified 11/08/15 11:29 gabapentin [From Neurontin] AdvReac Confusion Verified 11/08/15 11:29 naproxen [From Naprosyn] AdvReac Nausea Verified 11/08/15 11:29 tramadol AdvReac Nausea Verified 11/08/15 11:29 Date of admission: 08/27/17 00:44 Primary care physician: Jannette Medina, Consults: 08/27/17 11:30 Consult to Gastroenterology [CONS] Routine Consulting Provider: Gastroenterology Subha Reason for Consult: cirrhosis and liver mass, esophageal varices Call Completed: Yes Discharging clinician: Wilfrido Avila Anticipated date of discharge: 08/29/17 - Constitutional Vitals: Temp Pulse Resp BP Pulse Ox 99.1 F 95 17 121/73 97 08/28/17 22:00 08/29/17 07:18 08/29/17 07:18 08/29/17 07:18 08/29/17 07:18 General appearance: Present: A&O X 3 - Patient Status Disposition: Home, Self-Care Condition: Good Functional capacity at discharge: independent ambulation Overall status at discharge: patient is progressing back to baseline - Discharge Instructions Instructions: Spironolactone (By mouth), Furosemide (By mouth), Ascites (DC) Follow Up With: Jannette Medina CNP [Primary Care Provider] - 09/03/17 1:00 pm () Manish Temple MD [Partnered Physician] - (requested an appointment the office should call patient at home with appoinment date and time. if you have not heard from them by next saturday please call them) - Diet and Activity Activity: increase activity as tolerated Diet: diabetic diet, low salt diet, other (fluid restricted to 2L per day, Ensure beverage TID)
[2017-08-29] MEDS ORDERED: Gadolinium Contrast Agent (WT Based) IV PRN (14:01)
[2017-08-29] MEDS ORDERED: methylPREDNISolone 125 MG/2 ML VIAL IVP ONE (14:02)
[2017-08-29] MEDS ORDERED: Famotidine 20 MG/2 ML VIAL IVP ONE (14:02)
--- NOTE | 2017-08-29 14:11 | Gastroenterology Consult Note ---
Date of Encounter: 08/29/17 Time of Encounter: 10:06 - Assessment and plan (1) Liver lesion, right lobe Current Visit: Yes Status: Acute Assessment and plan: - As demonstrated on CT scan emergency department, noted that right upper quadrant ultrasound did not show any evidence of mass - Patient denies any history of cirrhosis or liver mass that he is aware of - Preliminary lab results including alpha-fetoprotein was within normal limits at 3, hepatitis panel negative, JOSEF negative for autoimmune hepatitis,F-actin IgG mildly elevated at 27, Mitochrondrial IgG wnl at 9.3 (PBC) - Radiology report notes concern for hepatocellular carcinoma on CT scan - Patient is asymptomatic at this time Plan - We will obtain MRI of the abdomen to further evaluate liver mass - Noted shellfish allergy we will prophylactically treat with steroids, H2 gemma, Benadryl - Recommend follow-up as outpatient pending results We will discuss further plan with Dr. Temple (2) Cirrhosis Current Visit: Yes Status: Chronic Assessment and plan: - New onset cirrhosis likely secondary to alcohol abuse - Labs including autoimmune, viral hepatitis, PBC are negative. - Cirrhotic appearance on both CT scan and ultrasound - Status post paracentesis, 5 L of fluid removed - MELD score 17 indicating a 6.0% mortality in the next 3 months. - Should follow up with GI as outpatient for further evaluation and management Qualifiers: Hepatic cirrhosis type: alcoholic cirrhosis Ascites presence: with ascites Qualified Code(s): K70.31 - Alcoholic cirrhosis of liver with ascites (3) History of alcohol dependence Current Visit: Yes Status: Chronic Assessment and plan: - Patient counseled on the importance of alcohol cessation. He states he has been trying to taper down by himself with the intention of quitting. It was explained to him that while he has been admitted he is being monitored for withdrawal and upon discharge he will be out of the timeline for alcohol withdrawal. He was encouraged for full cessation and he states his intent to do so. (4) Tobacco abuse Current Visit: Yes Status: Chronic Assessment and plan: Nicotine patch, patient is also trying to quit with the assistance of patches. He was instructed to contact his primary care physician if he should need further assistance in quitting. (5) Esophageal varices in alcoholic cirrhosis Current Visit: Yes Status: Chronic Assessment and plan: - As demonstrated on CT scan in emergency room - No obvious evidence of bleeding, H/H stable at 13.8/40.2 - Continue monitor and management as outpatient - Time Spent With Patient Total time spent is greater than 50% in coordination of care (as documented) at patient's floor/unit and/or counseling patient: GI History of Present Illness - Data of Consult Patient: new to practice Consult date: 08/29/17 Requesting Physician: Pamela Johnson - Consult Narrative Reason for consult: Cirrhosis, possible liver mass History of present illness: Mr. Brunner is a 61 year old male with past medical history of COPD, diabetes, hypertension, alcohol abuse who presented to emergency department with the complaint of constipation, abdominal fullness. He is status post paracentesis with 5 L of serous fluid removed. He denies any history of prior liver disease and states that he is attempting to cut back on his drinking. He states he used to drink approximately 8-10 beers per night and has been slowly tapering over the last 3 months. No known history of cirrhosis however CT scan findings as well as ultrasound findings do suggest a nodular appearance of the liver consistent with cirrhosis. GI was consulted for this as well as a possible mass seen on CT scan however it is noted that ultrasound was not able to locate any mass. Patient states that overall he is doing quite well today with his symptoms resolved and no additional symptoms of nausea, vomiting, constipation, diarrhea , change in bowel habits. He does note that he has been urinating a lot with diuretic therapy but his abdominal fullness is improving from last night. Colonoscopy: 12/03/16: Sigmoid polyp with tubular adenoma and hyperplastic polyps Past Med Surg Social Fam HX - Past Medical History Medical history: COPD, diabetes, hypertension, other Additional medical history: DDD/OA. DM - CONTROLLED. HERNIA. 6-8 BEERS DAILY Psychiatric history: no psych history - Past Surgical History Surgical History: herniorrhaphy, other Additional surgical history: HERNIA REPAIR 2003. 11/08/15 L ENDARTERECTOMY/ POSSIBLE ILIAC STENT AND FEM TO FEM BYPASS @[facility] - Social History Smoking Status: Current every day smoker Packs per day: 1 pack Smokeless Tobacco Status: No Alcohol use: heavy Drug use: none - Family History Mother Name: Paty Brunner Age at : 63 Cause of : CHF Hx Family Cardiac Disorders: Yes Hx Family Respiratory Disorders: No Hx Family Cancer: No Hx Family GI Disorders: No Hx Family Genitourinary Disorders: No Hx Family Endocrine Disorder: Yes (dm) Hx Family Musculoskeletal Disorders: No Hx Family Neuromuscular Disorders: No Hx Family Neurologic Disorders: No Hx Family HEENT Disorders: No Hx Family Autoimmune Disorders: No Hx Family Reproductive Disorders: No Hx Family Psychosocial Disorders: No Hx Family Medical Disorders: No - Gastrointestinal Gastrointestinal: Present: bloating, change in bowel habits, constipation, nausea, vomiting. Absent: abdominal pain, coffee ground emesis, diarrhea, dyspepsia, heartburn, hematemesis, hematochezia, melena - Constitutional Constitutional: weight gain, no fatigue - Cardiovascular Cardiovascular ROS: Absent: chest pain - Respiratory Respiratory IM: Absent: cough, dyspnea - Hematologic/Lymphatic Hematologic/Lymphatic pediatric: Absent: easy bleeding - Integumentary Integumentary GI: Absent: rash - Constitutional Vitals: Temp Pulse Resp BP Pulse Ox 99.1 F 95 17 121/73 97 08/28/17 22:00 08/29/17 07:18 08/29/17 07:18 08/29/17 07:18 08/29/17 07:18 Exam: Gen.: Vitals noted. No acute distress. AAOx3. Resting comfortably in bed HEENT: PERRL/EOMI, oropharynx clear, Normocephalic, atraumatic, MMM Cardiac: RRR, no murmur, +S1/S2 Pulmonary: CTA bilaterally, no wheezes, rales or rhonchi, equal chest expansion Abdomen: soft, nontender, BS noted, no guarding, no rebound. Positive fluid wave as well as abdominal distention. Percussive Extremities: Mild BLE edema, nontender calf, no cyanosis or clubbing Neuro: A&Ox3, moves all extremities, no focal deficits Psych: Appropriate mood and behavior Results - Labs CBC & Chem 7: 08/29/17 08:31 08/29/17 08:31 Labs: Last Result Calcium 9.1 mg/dL (8.6-10.3) 08/29/17 08:31 Ferritin 1449 ng/mL (20-250) H 08/27/17 13:16 Triglycerides 108 mg/dL (< 150) 08/27/17 03:49 Peritoneal Appearance CLEAR (Clear) 08/27/17 14:00 Peritoneal Volume 955.0 mL 08/27/17 14:00 Peritoneal pH 7.00 pH Units (No Ref Range) 08/27/17 14:00 Peritoneal RBC < 0.002 M/mcL (0.000-0.002) 08/27/17 14:00 Periton Tot Nuc Cells 224 TNC/mcL (0-300) 08/27/17 14:00 Periton Band Neuts Test Not Performed 08/27/17 14:00 Periton Lymphocytes % 30.0 % 08/27/17 14:00 Periton Monocytes % 20.0 % 08/27/17 14:00 Periton Other Cells % 29.0 % 08/27/17 14:00 Peritoneal Tot Protein < 3.0 g/dL (No Ref Range) 08/27/17 14:00 Peritoneal Albumin < 1.5 g/dL (No Ref Range) 08/27/17 14:00 Peritoneal LDH 49 Units/L (No Ref Range) 08/27/17 14:00 Peritoneal Glucose 105 mg/dL (No Ref Range) 08/27/17 14:00 Peritoneal Amylase < 10 Units/L (No Ref Range) 08/27/17 14:00 Peritoneal Cholesterol < 25 mg/dL (No Ref Range) 08/27/17 14:00 Peritoneal Triglycerid 23 mg/dL (No Ref Range) 08/27/17 14:00 Entire Visit Hgb 13.8 g/dL (12.9-16.9) D 08/29/17 08:31 Hct 40.2 % (37.5-50.1) 08/29/17 08:31 PT 19.0 Seconds (9.4-12.1) H 08/27/17 03:49 Ferritin 1449 ng/mL (20-250) H 08/27/17 13:16 Total Bilirubin 1.6 mg/dL (0.3-1.0) H 08/26/17 16:07 AST 132 Units/L (13-39) H 08/26/17 16:07 ALT 29 Units/L (7-52) 08/26/17 16:07 Xkffs-2-Qxogypychcs 224 mg/dL (90-200) H 08/27/17 13:16 Ceruloplasmin 33 mg/dL (17-54) 08/27/17 13:16 Lipase 23 Units/L (11-82) 08/26/17 16:07 F-Actin IgG Antibody 27 Units (0-19) H 08/27/17 13:16 - ABG ABG results: PT/INR, D-dimer PT 19.0 Seconds (9.4-12.1) H 08/27/17 03:49 - Impressions Impressions Chest X-Ray 08/29/17 10:32 IMPRESSION: Persistent small to moderate left pleural effusion and volume loss and/or pneumonia within the left lower lobe. D/ / Arie Amaro MD / Arie Amaro MD Interpreting Provider: Arie Amaro MD Consult Discharge Plan - Plan Instructions: Spironolactone (By mouth), Furosemide (By mouth), Ascites (DC) Referrals: Jannette Medina CNP [Primary Care Provider] - 09/03/17 1:00 pm () Mnaish Temple MD [Partnered Physician] - (requested an appointment the office should call patient at home with appoinment date and time. if you have not heard from them by next saturday please call them) Prescriptions: Furosemide [Lasix] 40 mg PO DAILY #30 tablet Spironolactone [Aldactone] 100 mg PO DAILY #30 tablet
[2017-08-30 07:31] LABS: Smooth Muscle Ab Titer IgG 1:40 (<1:20)
== END 2017-08-29 16:21 | disposition home or self-care (01) | DRG 433 ==
LOC: EMEROO 13:28 → 2NENU 13:28
PROVIDERS: ADMIT Internal Medicine; ATTEND Internal Medicine

== ENCOUNTER 2017-09-23 13:17 | Observation (INO) ==
[2017-09-23 13:50] LABS: Basophils # 0.1 K/mcL (0.0-0.2); Basophils % 1.1 %; Eosinophils # 0.3 K/mcL (0.0-0.6); Eosinophils % 2.9 %; Hematocrit 36.1 % (37.5-50.1); Hemoglobin 12.3 g/dL (12.9-16.9); Immature Granulocytes % 0.4 % (0-4); Lymphocytes # 1.3 K/mcL (0.6-4.6); Mean Corpuscular HGB Conc 34.1 g/dL (31.6-35.5); Mean Corpuscular Hemoglobin 35.2 pg (28.0-33.3); Mean Corpuscular Volume 103.4 fL (83.0-100.0); Mean Platelet Volume 9.9 fL (9.4-12.4); Monocytes # 0.7 K/mcL (0.0-1.3); Monocytes % 8.1 %; Neutrophils # 6.2 K/mcL (1.6-8.9); Platelet Count 145 K/mcL (140-400); Red Blood Count 3.49 M/mcL (4.19-5.50); Red Cell Distribution Width 12.9 % (11.5-14.5); Segmented Neutrophils % 72.5 %
[2017-09-23 13:59] LABS: INR 1.3; Prothrombin Time 14.6 Seconds (9.4-12.1)
[2017-09-23 14:01] LABS: Activated Partial Thrombo Time 39.6 Seconds (26.0-36.0)
[2017-09-23] MEDS ORDERED: Isovue-370 500 ML INFUS..BTL IV ONE (14:05)
[2017-09-23 14:11] LABS: Troponin I < 0.03 ng/mL (< 0.04)
[2017-09-23 14:12] LABS: Alanine Aminotransferase 23 Units/L (7-52); Albumin 2.8 g/dL (3.5-5.7); Albumin/Globulin Ratio 0.5 (1.1-2.2); Alkaline Phosphatase 83 Units/L (34-104); Aspartate Amino Transferase 103 Units/L (13-39); BUN/Creatinine Ratio 21 (6-26); Bilirubin,Direct 0.5 mg/dL (0.0-0.2); Bilirubin,Indirect 0.6 mg/dL (0.0-1.2); Bilirubin,Total 1.1 mg/dL (0.3-1.0); Blood Urea Nitrogen 56 mg/dL (8-23); Calcium 9.1 mg/dL (8.6-10.3); Carbon Dioxide 18 mEq/L (23-29); Chloride 103 mEq/L (98-107); Globulin 5.3 g/dL (2.4-3.5); Glucose 132 mg/dL (70-105); Osmolality,Calculated 289 (280-300); Potassium 5.2 mEq/L (3.5-5.1); Sodium 131 mEq/L (136-145); Total Protein 8.1 g/dL (6.4-8.9); eGFR For Non-African Americans 25 (> 60)
--- NOTE | 2017-09-23 14:33 | Emergency Department Note ---
Disposition Clinical Impression: CHETNA (acute kidney injury), Esophageal varices in alcoholic cirrhosis, Liver mass Ascites Qualifiers: Ascites type: other type Qualified Code(s): R18.8 - Other ascites Disposition: Admitted As Inpatient Condition: Fair Time of Disposition: 16:56 SOB HPI - General Chief Complaint: ED Abdominal Pain Stated Complaint: SOB/Abd pain Time Seen by Provider: 09/23/17 13:50 Source: patient, family Mode of arrival: ambulatory Limitations: no limitations Nursing Notes Reviewed: Yes Vital Signs Reviewed: Yes - History of Present Illness Patient presents to the ED with the chief complaint of shortness of breath and abdominal pain. Patient reports that he has a history of alcoholic cirrhosis, but recently quit drinking about a month ago because he found out that he has liver cancer. He has not seen oncology, but is scheduled soon. States that he had a paracentesis about a month ago that took off 5 L that the fluid has reaccumulated and he has become more short of breath. Also complains of generalized weakness and diffuse abdominal pain. Denies any fever or chills. Has had some mild nonproductive cough. No chest pain. Some nausea but no vomiting. No diarrhea. No rashes. - Related Data Home Medications Medication Instructions Recorded Confirmed Aspirin Enteric Coated [Aspirin EC] 81 mg PO DAILY 08/26/17 09/23/17 Cyclobenzaprine HCl 5 mg PO BID PRN 08/26/17 09/23/17 Glimepiride [Amaryl] 2 mg PO DAILY 08/26/17 09/23/17 Lisinopril [Zestril] 40 mg PO DAILY 08/26/17 09/23/17 Pioglitazone [Actos] 45 mg PO DAILY 08/26/17 09/23/17 Citalopram Hydrobromide 20 mg PO DAILY 09/23/17 09/23/17 [Citalopram HBr] Previous Rx's Medication Instructions Recorded Furosemide [Lasix] 40 mg PO DAILY #30 tablet 08/29/17 Spironolactone [Aldactone] 100 mg PO DAILY #30 tablet 08/29/17 Allergies Allergy/AdvReac Type Severity Reaction Status Date / Time shellfish derived Allergy Anaphylaxis Verified 11/08/15 11:29 budesonide [From Symbicort] AdvReac ELEVATED BP Verified 11/08/15 11:29 cilostazol AdvReac SWEATS Verified 11/08/15 11:29 Formoterol [From Symbicort] AdvReac ELEVATED BP Verified 11/08/15 11:29 gabapentin [From Neurontin] AdvReac Confusion Verified 11/08/15 11:29 naproxen [From Naprosyn] AdvReac Nausea Verified 11/08/15 11:29 tramadol AdvReac Nausea Verified 11/08/15 11:29 Review of Systems: As reviewed in the HPI. All other systems reviewed are negative or normal. Past Medical History - Past Medical History Attestation: Yes The following information was validated with the patient. Source: patient Medical history: Reports: cancer, COPD, diabetes, hypertension, other Surgical history: Reports: herniorrhaphy, other Psychiatric history: Reports: no psych history - Social History Smoking Status: Current every day smoker Smokeless Tobacco Status: No Alcohol use: Reports: none Drug use: Reports: none Physical Exam CONSTITUTIONAL: Ill-appearing, no acute distress SKIN: [Warm, dry, and intact without rash, bronze color] EYES: [extraocular movements are grossly intact, clear conjunctiva] HENT: [Normocephalic, atraumatic, moist mucus membranes] NECK: [no obvious swelling, normal range of motion] PULMONARY: [normal chest rise and fall, no respiratory distress or stridor CARDIOVASCULAR: [regular rate, distal extremities are warm and well perfused] GASTROINSTESTINAL: [moderately distended, mildly tender diffusely, no guarding/ rebound, + ascites] GENITOURINARY: [deferred] NEUROLOGIC: [normal speech, moves all extremities] MUSCULOSKELETAL: [no gross deformities, atraumatic] PSYCHIATRIC: [normal mood and flat affect] - General Limitations: no limitations General appearance: alert, in no apparent distress Course Course Narrative: patient presenting with alcoholic cirrhosis and ascites. Will get labs/ct and IR to do Paracentesis. Will admit for further management. Patient also has a new CHETNA with normal renal function previously. His bili is mildly elevated. CT does show a hepatic mass. We will admit to the hospital service for oncologic consult and waiting the results of this paracentesis. patient will get 25 gms of 25% albumin. Admitted to Dr. Fletcher Vital Signs Temperature 97.6 F 09/23/17 13:24 Pulse Rate 95 09/23/17 13:24 Respiratory Rate 16 09/23/17 13:24 Blood Pressure 124/69 09/23/17 13:24 O2 Sat by Pulse Oximetry 99 09/23/17 13:24 Temperature 97.6 F 09/23/17 13:58 Pulse Rate 89 09/23/17 16:29 Respiratory Rate 18 09/23/17 16:29 Blood Pressure 116/63 09/23/17 16:29 O2 Sat by Pulse Oximetry 99 09/23/17 16:29 Oxygen Delivery Oxygen Delivery Room Air Shortness of Breath/Dyspnea - Medical Records Medical records reviewed: Yes I reviewed the patient's medical records. - Lab Data Lab results reviewed: Yes I reviewed the patient's lab results. Result diagrams: 09/23/17 13:35 09/23/17 13:35 Lab Results 09/23/17 09/23/17 09/23/17 Range/Units 13:35 13:35 13:35 WBC 8.5 (4.3-11.1) K/mcL RBC 3.49 L (4.19-5.50) M/mcL Hgb 12.3 L (12.9-16.9) g/dL Hct 36.1 L (37.5-50.1) % MCV 103.4 H (83.0-100.0) fL MCH 35.2 H (28.0-33.3) pg MCHC 34.1 (31.6-35.5) g/dL RDW 12.9 (11.5-14.5) % Plt Count 145 (140-400) K/mcL MPV 9.9 (9.4-12.4) fL Immature Gran % 0.4 (0-4) % Seg Neutrophils % 72.5 % Lymphocytes % 15.0 % Monocytes % 8.1 % Eosinophils % 2.9 % Basophils % 1.1 % Neutrophils # 6.2 (1.6-8.9) K/mcL Lymphocytes # 1.3 (0.6-4.6) K/mcL Monocytes # 0.7 (0.0-1.3) K/mcL Eosinophils # 0.3 (0.0-0.6) K/mcL Basophils # 0.1 (0.0-0.2) K/mcL PT 14.6 H (9.4-12.1) Seconds INR 1.3 APTT 39.6 H (26.0-36.0) Seconds Sodium 131 L (136-145) mEq/L Potassium 5.2 H (3.5-5.1) mEq/L Chloride 103 (98-107) mEq/L Carbon Dioxide 18 L (23-29) mEq/L BUN 56 H (8-23) mg/dL Creatinine 2.61 H (0.70-1.30) mg/dL Est GFR ( Amer) 31 L (> 60) Est GFR (Non-Af Amer) 25 L (> 60) BUN/Creatinine Ratio 21 (6-26) Glucose 132 H (70-105) mg/dL Calculated Osmolality 289 (280-300) Lactic Acid (0.5-2.2) mmol/L Calcium 9.1 (8.6-10.3) mg/dL Total Bilirubin 1.1 H (0.3-1.0) mg/dL Direct Bilirubin 0.5 H (0.0-0.2) mg/dL Indirect Bilirubin 0.6 (0.0-1.2) mg/dL AST 103 H (13-39) Units/L ALT 23 (7-52) Units/L Alkaline Phosphatase 83 (34-104) Units/L Lactate Dehydrogenase (140-271) Units/L Troponin I < 0.03 (< 0.04) ng/mL B-Natriuretic Peptide (Less than 100) pg/mL Serum Total Protein 8.1 (6.4-8.9) g/dL Albumin 2.8 L (3.5-5.7) g/dL Globulin 5.3 H (2.4-3.5) g/dL Albumin/Globulin Ratio 0.5 L (1.1-2.2) 09/23/17 09/23/17 09/23/17 Range/Units 13:35 13:35 15:42 WBC (4.3-11.1) K/mcL RBC (4.19-5.50) M/mcL Hgb (12.9-16.9) g/dL Hct (37.5-50.1) % MCV (83.0-100.0) fL MCH (28.0-33.3) pg MCHC (31.6-35.5) g/dL RDW (11.5-14.5) % Plt Count (140-400) K/mcL MPV (9.4-12.4) fL Immature Gran % (0-4) % Seg Neutrophils % % Lymphocytes % % Monocytes % % Eosinophils % % Basophils % % Neutrophils # (1.6-8.9) K/mcL Lymphocytes # (0.6-4.6) K/mcL Monocytes # (0.0-1.3) K/mcL Eosinophils # (0.0-0.6) K/mcL Basophils # (0.0-0.2) K/mcL PT (9.4-12.1) Seconds INR APTT (26.0-36.0) Seconds Sodium (136-145) mEq/L Potassium (3.5-5.1) mEq/L Chloride (98-107) mEq/L Carbon Dioxide (23-29) mEq/L BUN (8-23) mg/dL Creatinine (0.70-1.30) mg/dL Est GFR ( Amer) (> 60) Est GFR (Non-Af Amer) (> 60) BUN/Creatinine Ratio (6-26) Glucose (70-105) mg/dL Calculated Osmolality (280-300) Lactic Acid 2.0 1.8 (0.5-2.2) mmol/L Calcium (8.6-10.3) mg/dL Total Bilirubin (0.3-1.0) mg/dL Direct Bilirubin (0.0-0.2) mg/dL Indirect Bilirubin (0.0-1.2) mg/dL AST (13-39) Units/L ALT (7-52) Units/L Alkaline Phosphatase (34-104) Units/L Lactate Dehydrogenase (140-271) Units/L Troponin I (< 0.04) ng/mL B-Natriuretic Peptide 67 (Less than 100) pg/mL Serum Total Protein (6.4-8.9) g/dL Albumin (3.5-5.7) g/dL Globulin (2.4-3.5) g/dL Albumin/Globulin Ratio (1.1-2.2) // Range/Units 15:42 WBC (4.3-11.1) K/mcL RBC (4.19-5.50) M/mcL Hgb (12.9-16.9) g/dL Hct (37.5-50.1) % MCV (83.0-100.0) fL MCH (28.0-33.3) pg MCHC (31.6-35.5) g/dL RDW (11.5-14.5) % Plt Count (140-400) K/mcL MPV (9.4-12.4) fL Immature Gran % (0-4) % Seg Neutrophils % % Lymphocytes % % Monocytes % % Eosinophils % % Basophils % % Neutrophils # (1.6-8.9) K/mcL Lymphocytes # (0.6-4.6) K/mcL Monocytes # (0.0-1.3) K/mcL Eosinophils # (0.0-0.6) K/mcL Basophils # (0.0-0.2) K/mcL PT (9.4-12.1) Seconds INR APTT (26.0-36.0) Seconds Sodium (136-145) mEq/L Potassium (3.5-5.1) mEq/L Chloride (98-107) mEq/L Carbon Dioxide (23-29) mEq/L BUN (8-23) mg/dL Creatinine (0.70-1.30) mg/dL Est GFR ( Amer) (> 60) Est GFR (Non-Af Amer) (> 60) BUN/Creatinine Ratio (6-26) Glucose (70-105) mg/dL Calculated Osmolality (280-300) Lactic Acid (0.5-2.2) mmol/L Calcium (8.6-10.3) mg/dL Total Bilirubin (0.3-1.0) mg/dL Direct Bilirubin (0.0-0.2) mg/dL Indirect Bilirubin (0.0-1.2) mg/dL AST (13-39) Units/L ALT (7-52) Units/L Alkaline Phosphatase (34-104) Units/L Lactate Dehydrogenase 232 (140-271) Units/L Troponin I (< 0.04) ng/mL B-Natriuretic Peptide (Less than 100) pg/mL Serum Total Protein (6.4-8.9) g/dL Albumin (3.5-5.7) g/dL Globulin (2.4-3.5) g/dL Albumin/Globulin Ratio (1.1-2.2) - Radiology Data Radiology results reviewed: Yes I reviewed the patient's radiology results. - EKG Data EKG attestation: Yes I reviewed and interpreted this EKG. EKG results narrative: Sinus rhythm, normal intervals, left axis deviation, no acute ischemic changes
--- NOTE | 2017-09-23 15:17 | Emergency Department Note ---
Disposition Clinical Impression: Ascites Qualifiers: Ascites type: other type Qualified Code(s): R18.8 - Other ascites Disposition: Admitted As Inpatient Referrals: Jannette Medina CNP [Primary Care Provider] - Forms: ED Satisfaction Letter, Work/School Release General Adult HPI - General Chief complaint: ED Abdominal Pain Stated complaint: SOB/Abd pain Time Seen by Provider: 09/23/17 13:50 Source: patient, family Mode of arrival: ambulatory Limitations: no limitations - History of Present Illness Pain Scale: 7 - Related Data Home Medications Medication Instructions Recorded Confirmed Aspirin Enteric Coated [Aspirin EC] 81 mg PO DAILY 08/26/17 09/23/17 Cyclobenzaprine HCl 5 mg PO BID PRN 08/26/17 09/23/17 Glimepiride [Amaryl] 2 mg PO DAILY 08/26/17 09/23/17 Lisinopril [Zestril] 40 mg PO DAILY 08/26/17 09/23/17 Pioglitazone [Actos] 45 mg PO DAILY 08/26/17 09/23/17 Citalopram Hydrobromide 20 mg PO DAILY 09/23/17 09/23/17 [Citalopram HBr] Previous Rx's Medication Instructions Recorded Furosemide [Lasix] 40 mg PO DAILY #30 tablet 08/29/17 Spironolactone [Aldactone] 100 mg PO DAILY #30 tablet 08/29/17 Allergies Allergy/AdvReac Type Severity Reaction Status Date / Time shellfish derived Allergy Anaphylaxis Verified 11/08/15 11:29 budesonide [From Symbicort] AdvReac ELEVATED BP Verified 11/08/15 11:29 cilostazol AdvReac SWEATS Verified 11/08/15 11:29 Formoterol [From Symbicort] AdvReac ELEVATED BP Verified 11/08/15 11:29 gabapentin [From Neurontin] AdvReac Confusion Verified 11/08/15 11:29 naproxen [From Naprosyn] AdvReac Nausea Verified 11/08/15 11:29 tramadol AdvReac Nausea Verified 11/08/15 11:29 Past Medical History - Past Medical History Medical history: Reports: cancer, COPD, diabetes, hypertension, other Surgical history: Reports: herniorrhaphy, other Psychiatric history: Reports: no psych history - Social History Smoking Status: Current every day smoker Smokeless Tobacco Status: No Alcohol use: Reports: none Drug use: Reports: none Physical Exam - General Limitations: no limitations General appearance: alert, in no apparent distress Course Vital Signs Temperature 97.6 F 09/23/17 13:24 Pulse Rate 95 09/23/17 13:24 Respiratory Rate 16 09/23/17 13:24 Blood Pressure 124/69 09/23/17 13:24 O2 Sat by Pulse Oximetry 99 09/23/17 13:24 Temperature 97.6 F 09/23/17 13:58 Pulse Rate 92 09/23/17 14:03 Respiratory Rate 22 09/23/17 14:03 Blood Pressure 109/65 09/23/17 14:03 O2 Sat by Pulse Oximetry 100 09/23/17 14:03 Oxygen Delivery Oxygen Delivery Room Air Medical Decision Making - Lab Data Result diagrams: 09/23/17 13:35 09/23/17 13:35 Lab Results 09/23/17 09/23/17 09/23/17 Range/Units 13:35 13:35 13:35 WBC 8.5 (4.3-11.1) K/mcL RBC 3.49 L (4.19-5.50) M/mcL Hgb 12.3 L (12.9-16.9) g/dL Hct 36.1 L (37.5-50.1) % MCV 103.4 H (83.0-100.0) fL MCH 35.2 H (28.0-33.3) pg MCHC 34.1 (31.6-35.5) g/dL RDW 12.9 (11.5-14.5) % Plt Count 145 (140-400) K/mcL MPV 9.9 (9.4-12.4) fL Immature Gran % 0.4 (0-4) % Seg Neutrophils % 72.5 % Lymphocytes % 15.0 % Monocytes % 8.1 % Eosinophils % 2.9 % Basophils % 1.1 % Neutrophils # 6.2 (1.6-8.9) K/mcL Lymphocytes # 1.3 (0.6-4.6) K/mcL Monocytes # 0.7 (0.0-1.3) K/mcL Eosinophils # 0.3 (0.0-0.6) K/mcL Basophils # 0.1 (0.0-0.2) K/mcL PT 14.6 H (9.4-12.1) Seconds INR 1.3 APTT 39.6 H (26.0-36.0) Seconds Sodium 131 L (136-145) mEq/L Potassium 5.2 H (3.5-5.1) mEq/L Chloride 103 (98-107) mEq/L Carbon Dioxide 18 L (23-29) mEq/L BUN 56 H (8-23) mg/dL Creatinine 2.61 H (0.70-1.30) mg/dL Est GFR ( Amer) 31 L (> 60) Est GFR (Non-Af Amer) 25 L (> 60) BUN/Creatinine Ratio 21 (6-26) Glucose 132 H (70-105) mg/dL Calculated Osmolality 289 (280-300) Lactic Acid (0.5-2.2) mmol/L Calcium 9.1 (8.6-10.3) mg/dL Total Bilirubin 1.1 H (0.3-1.0) mg/dL Direct Bilirubin 0.5 H (0.0-0.2) mg/dL Indirect Bilirubin 0.6 (0.0-1.2) mg/dL AST 103 H (13-39) Units/L ALT 23 (7-52) Units/L Alkaline Phosphatase 83 (34-104) Units/L Troponin I < 0.03 (< 0.04) ng/mL B-Natriuretic Peptide (Less than 100) pg/mL Serum Total Protein 8.1 (6.4-8.9) g/dL Albumin 2.8 L (3.5-5.7) g/dL Globulin 5.3 H (2.4-3.5) g/dL Albumin/Globulin Ratio 0.5 L (1.1-2.2) 09/23/17 09/23/17 Range/Units 13:35 13:35 WBC (4.3-11.1) K/mcL RBC (4.19-5.50) M/mcL Hgb (12.9-16.9) g/dL Hct (37.5-50.1) % MCV (83.0-100.0) fL MCH (28.0-33.3) pg MCHC (31.6-35.5) g/dL RDW (11.5-14.5) % Plt Count (140-400) K/mcL MPV (9.4-12.4) fL Immature Gran % (0-4) % Seg Neutrophils % % Lymphocytes % % Monocytes % % Eosinophils % % Basophils % % Neutrophils # (1.6-8.9) K/mcL Lymphocytes # (0.6-4.6) K/mcL Monocytes # (0.0-1.3) K/mcL Eosinophils # (0.0-0.6) K/mcL Basophils # (0.0-0.2) K/mcL PT (9.4-12.1) Seconds INR APTT (26.0-36.0) Seconds Sodium (136-145) mEq/L Potassium (3.5-5.1) mEq/L Chloride (98-107) mEq/L Carbon Dioxide (23-29) mEq/L BUN (8-23) mg/dL Creatinine (0.70-1.30) mg/dL Est GFR ( Amer) (> 60) Est GFR (Non-Af Amer) (> 60) BUN/Creatinine Ratio (6-26) Glucose (70-105) mg/dL Calculated Osmolality (280-300) Lactic Acid 2.0 (0.5-2.2) mmol/L Calcium (8.6-10.3) mg/dL Total Bilirubin (0.3-1.0) mg/dL Direct Bilirubin (0.0-0.2) mg/dL Indirect Bilirubin (0.0-1.2) mg/dL AST (13-39) Units/L ALT (7-52) Units/L Alkaline Phosphatase (34-104) Units/L Troponin I (< 0.04) ng/mL B-Natriuretic Peptide 67 (Less than 100) pg/mL Serum Total Protein (6.4-8.9) g/dL Albumin (3.5-5.7) g/dL Globulin (2.4-3.5) g/dL Albumin/Globulin Ratio (1.1-2.2) Attestation Statement - Attestation Attestation: I examined this patient and my medical decision-making was reviewed with the Resident Physician. I agree with the documented findings, disposition and treatment plan as described except to the extent set forth below. 61 year old male prsents to the eD with complaints of abdominal pain and swlling with shortness of breath. PAtient states that he has liver cancer and at bedsides states that he seems more confused than usual. PAtint appers to be distended and this is likely abdominal ascites. He also has CHETNA and increased in potassium without changes in EKG. WE will admit to medicine and have consulted IR for paracentesis
--- NOTE | 2017-09-23 15:33 | IR Procedure Note ---
Date of procedure: 09/23/17 Consent Obtained: Verbal consent, Written consent Timeout: Correct patient and procedure verified, Correct site verified, Time out performed, Skin prep completed Local anesthetic: Lidocaine 1% Indications: Ascites Procedure Performed: Paracentesis Was there an assistant teacher primary present: No Site/Technique: Ultrasound guided paracentesis performed Results/Findings: Moderate ascites Estimated blood loss (cc): 5 Complications: None; Tolerated procedure well Post Procedure Treatment Plan: Continue ED care Specimen: Serous ascites
[2017-09-23] MEDS ORDERED: Albumin 25% 25gram/100mL 25 GM/100 ML IV.SOLN IVPB ONE (15:42)
[2017-09-23] MEDS ORDERED: Naloxone 0.4 MG/ML INJ IVP PRN (16:44)
--- NOTE | 2017-09-23 17:00 | Internal Med History&Physical ---
Date of Encounter: 09/23/17 Time of Encounter: 16:54 Internal Medicine - H&P: HPI Chief complaint: Sob d/t ascites Admitted From: Home Plans for Post Hospital Care: Home History of present illness: Mr. Brunner is a 61 year old male with history of cirrhosis. He presents today with sob with increasing ascites, abdominal pain, and constipated. The patient was tapped 1 month ago. IR performed a paracentesis today and 6.5 L removed. The patient cxr showed no significant effusion, or acute course. Abd ct showed cirrhotic appearance of liver, with multiple hypodense masses. WBC is 8.5, sodium is 131,, potassium 5.2, creatinine 2.61, bun is elevate at 56. CHETNA likely a result of the cirrhosis and/or dehydration. While the patient is in- house he and family have requested for oncology to come and speak to them regarding treatment options. Order for oncology placed. Will need called in am. Case discussed with Dr. Valderrama. Past Med Surg Social Fam HX - Past Medical History Medical history: cancer, COPD, diabetes, hypertension, other Additional medical history: DDD/OA. DM - CONTROLLED. HERNIA. 6-8 BEERS DAILY Psychiatric history: no psych history - Past Surgical History Surgical History: herniorrhaphy, other Additional surgical history: HERNIA REPAIR 2003. 11/08/15 L ENDARTERECTOMY/ POSSIBLE ILIAC STENT AND FEM TO FEM BYPASS @[facility] - Social History Smoking Status: Current every day smoker Smokeless Tobacco Status: No Alcohol use: none Drug use: none - Family History Mother Hx Family Cardiac Disorders: Yes Hx Family Respiratory Disorders: No Hx Family Cancer: No Hx Family GI Disorders: No Hx Family Endocrine Disorder: Yes (dm) Hx Family Neuromuscular Disorders: No Hx Family Neurologic Disorders: No Hx Family HEENT Disorders: No Hx Family Autoimmune Disorders: No Internal Medicine - H&P: Meds Aspirin Enteric Coated [Aspirin EC] 81 mg PO DAILY 08/26/17 [History] Cyclobenzaprine HCl 5 mg PO BID PRN 08/26/17 [History] Glimepiride [Amaryl] 2 mg PO DAILY 08/26/17 [History] Lisinopril [Zestril] 40 mg PO DAILY 08/26/17 [History] Pioglitazone [Actos] 45 mg PO DAILY 08/26/17 [History] Furosemide [Lasix] 40 mg PO DAILY #30 tablet 08/29/17 [Rx] Spironolactone [Aldactone] 100 mg PO DAILY #30 tablet 08/29/17 [Rx] Citalopram Hydrobromide [Citalopram HBr] 20 mg PO DAILY 09/23/17 [History] 3 Allergy/AdvReac Type Severity Reaction Status Date / Time shellfish derived Allergy Anaphylaxis Verified 11/08/15 11:29 budesonide [From Symbicort] AdvReac ELEVATED BP Verified 11/08/15 11:29 cilostazol AdvReac SWEATS Verified 11/08/15 11:29 Formoterol [From Symbicort] AdvReac ELEVATED BP Verified 11/08/15 11:29 gabapentin [From Neurontin] AdvReac Confusion Verified 11/08/15 11:29 naproxen [From Naprosyn] AdvReac Nausea Verified 11/08/15 11:29 tramadol AdvReac Nausea Verified 11/08/15 11:29 All Systems PM: A 10-system review of systems was performed and is negative for pertinent findings except as documented above in the HPI. - Constitutional Constitutional: no chills, no fever(s), no night sweats - EENT Eyes: no change in vision, no discharge, no pain, no photophobia Ears: no ear discharge, no ear pain, no tinnitus Nose, mouth and throat: no dysphagia, no nasal discharge, no neck pain, no sore throat - Cardiovascular Cardiovascular ROS IM: no chest pain, no diaphoresis, no dyspnea, no lightheadedness, no palpitations, no syncope - Respiratory Respiratory: no cough, no dyspnea, no wheezing, no excessive phlegm production - Gastrointestinal Gastrointestinal: abdominal pain (Improved since paracentesis), bloating, no diarrhea, no hematemesis, no hematochezia, no melena, no nausea, no vomiting - Musculoskeletal Musculoskeletal ROS IM: no numbness, no tingling - Integumentary Integumentary IM: no rash, no unusual bruising - Neurological Neurological ROS: no confusion, no convulsions, no focal weakness, no numbness, no tingling, no tremor(s) - Hematologic/Lymphatic Hematologic/Lymphatic: no easy bruising - Constitutional Vitals: Temp Pulse Resp BP Pulse Ox 97.6 F 89 18 116/63 99 09/23/17 13:58 09/23/17 16:29 09/23/17 16:29 09/23/17 16:29 09/23/17 16:29 General appearance: Present: cooperative, A&O X 3, no acute distress, answers questions appropriately - Head Head exam: Present: atraumatic, normocephalic - Eye Eye exam: Present: PERRL, conjuntiva pink, sclera anicteric Pupils: Present: PERRL - Neck Neck exam general surgery: Present: supple, trachea midline. Absent: lymphadenopathy - Respiratory Respiratory exam: Present: CTAB. Absent: accessory muscle use, rales, rhonchi, wheezes - Cardiovascular Cardiovascular exam: Present: RRR, +S1, +S2. Absent: diastolic murmur, gallop, rubs, systolic murmur - GI/Abdominal GI/Abdominal exam: Present: distended, normal bowel sounds, soft, tenderness ( mild), no peritoneal signs - Extremities Exam Extremities exam: Present: warm, radial pulses palpable and symmetrical. Absent : calf tenderness, cyanotic, pedal edema - Neurological Exam Neurological exam: Present: CN II-XII intact, oriented X3, no focal deficits. Absent: pronater drift, facial droop, speech deficit - Skin Skin exam: Present: dry, intact Internal Med - H&P Results - Labs CBC & Chem 7: 09/23/17 13:35 09/23/17 13:35 - Assessment and plan (1) Cirrhosis Current Visit: Yes Status: Chronic Assessment and plan: Patient indicated that he quit drinking and taking percocet tablets 1 month ago with his last admission to [facility]. He had a paracentesis done on that admission when 5L of fluid was drained. Hx alcohol abuse. Drinks 4-5 beers per day Daily weights Ammonia level jerrell Monitor daily labs Qualifiers: Hepatic cirrhosis type: alcoholic cirrhosis Ascites presence: with ascites Qualified Code(s): K70.31 - Alcoholic cirrhosis of liver with ascites (2) Ascites Current Visit: Yes Status: Chronic Assessment and plan: Paracentesis performed 6.5 L drained today Monitor labs daily Daily weights Qualifiers: Ascites type: other type Qualified Code(s): R18.8 - Other ascites (3) Abdominal distention Current Visit: No Status: Acute Assessment and plan: Same as above (4) Liver mass Current Visit: No Status: Acute Assessment and plan: Oncology consult for treatment recommendations/options. (5) Diabetes Current Visit: No Status: Chronic Assessment and plan: accu checks ac/hs. Low humalog insulin coverage. Blood sugar is 132, BS is controlled. Monitor daily labs Qualifiers: Diabetes mellitus type: type 2 Diabetes mellitus remote computer terminal operator insulin use: without remote computer terminal operator use Diabetes mellitus complication status: with hypoglycemia Diabetes mellitus complication detail: without coma Qualified Code(s): E11.649 - Type 2 diabetes mellitus with hypoglycemia without coma (6) Essential hypertension Current Visit: No Status: Chronic Assessment and plan: Bp is controlled 118/63 Hold bp meds for now (7) Hyperkalemia Current Visit: Yes Status: Acute Assessment and plan: Hold spironlactone Monitor daily labs (8) CHETNA (acute kidney injury) Current Visit: Yes Status: Acute Assessment and plan: Patient baseline around 0.9. Likely related to dehydration. Gentle IVF's Monitor daily labs - Time Spent With Patient Total time spent is greater than 50% in coordination of care (as documented) at patient's floor/unit and/or counseling patient: 25 - 35 minutes
[2017-09-23 18:33] LABS: RBC,Peritoneal Fluid < 0.002 M/mcL
[2017-09-23 18:37] LABS: Appearance of Peritoneal Fl HAZY (Clear)
[2017-09-23 18:42] LABS: Amylase,Peritoneal Fluid 10 Units/L (No Ref Range); Glucose,Peritoneal Fluid 121 mg/dL (No Ref Range); LDH,Peritoneal Fluid 56 Units/L (No Ref Range); Total Protein,Peritoneal Fluid < 3.0 g/dL (No Ref Range)
[2017-09-23] MEDS ORDERED: *HR* Dextrose 50 % in Water (Syg) 50 ML SYRINGE IVP PRN (19:07)
[2017-09-23] MEDS ORDERED: D5% in Water 1,000 ML IVC PRN (19:07)
[2017-09-23] MEDS ORDERED: Dextrose Gel 15 GM/37.5 ML TUBE PO PRN ×2 (19:07)
[2017-09-23] MEDS ORDERED: Mag Hydrox/Al Hydrox/Simeth 30 ML UDC PO PRN (19:52)
[2017-09-23] MEDS: Nicotine 21 MG PATCH.TD24 TD SCH (20:29)
[2017-09-23] MEDS ORDERED: 0.9 % Sodium Chloride 1,000 ML IVC ONE (21:18)
[2017-09-23] MEDS: Insulin LISPRO 300 UNITS/3 ML VIAL SQ SCH (21:20)
--- NOTE | 2017-09-23 22:06 | Electrocardiograph Report ---
[facility] [employer] [facility] Test Date: 2017-09-23 Pat Name: Doreen Brunner Department: 104 Room: 2A16 Gender: M Sales And Service Officer: NILAY : 1955 Requested By: Farhad Ellington Order Number: [id number] Reading MD: Stephan Patel Measurements Intervals [place] Rate: 93 P: 55 IN: 162 QRS: -10 QRSD: 97 T: 13 QT: 362 QTc: 413 Interpretive Statements SINUS RHYTHM POSSIBLE LEFT ATRIAL ENLARGEMENT POSSIBLE ANTERIOR MYOCARDIAL INFARCTION, OF INDETERMINATE AGE Electronically Signed On 09-23-2017 22:04:28 EDT by Stephan Patel
[2017-09-24 05:25] LABS: Basophils # 0.1 K/mcL (0.0-0.2); Basophils % 0.8 %; Eosinophils # 0.4 K/mcL (0.0-0.6); Eosinophils % 4.6 %; Immature Granulocytes % 0.4 % (0-4); Lymphocytes # 1.3 K/mcL (0.6-4.6); Lymphocytes % 17.4 %; Mean Corpuscular HGB Conc 34.6 g/dL (31.6-35.5); Mean Corpuscular Hemoglobin 35.7 pg (28.0-33.3); Mean Corpuscular Volume 102.9 fL (83.0-100.0); Mean Platelet Volume 10.2 fL (9.4-12.4); Monocytes # 0.8 K/mcL (0.0-1.3); Monocytes % 10.9 %; Platelet Count 124 K/mcL (140-400); Red Blood Count 2.72 M/mcL (4.19-5.50); Red Cell Distribution Width 12.7 % (11.5-14.5); Segmented Neutrophils % 65.9 %
[2017-09-24 05:30] LABS: Hemoglobin 9.7 g/dL (12.9-16.9)
[2017-09-24 05:38] LABS: Potassium 4.7 mEq/L (3.5-5.1)
[2017-09-24 05:39] LABS: Calcium 8.3 mg/dL (8.6-10.3)
[2017-09-24] MEDS: Insulin LISPRO 300 UNITS/3 ML VIAL SQ SCH ×4 (07:53→21:27)
[2017-09-24] MEDS: Nicotine 21 MG PATCH.TD24 TD SCH (07:55)
[2017-09-24] MEDS ORDERED: Albumin 25% 25gram/100mL 25 GM/100 ML IV.SOLN IVPB ONE (08:16)
[2017-09-24] MEDS ORDERED: Aspirin Enteric Coated 81 MG Tablet PO SCH (09:00)
--- NOTE | 2017-09-24 11:21 | Internal Med Progress Note ---
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 carcinomatosis he is admitted and being managed for CHETNA with metabolic acidosis, hyponatremia and anemia He was also with abdominal pain, s/p 6.5 L of peritoneal fluid drained, albumin given Seen and evaluated at the bedside with his spouse this a.m He reports abdominal pain is improved Hb drop noted, patient with portal HTN and varices found on imaging, also patient stated his stool is black, will consult GI Awaiting oncology eval - Exam Vitals: Temp Pulse Resp BP Pulse Ox 98.2 F 86 19 112/66 100 09/24/17 10:35 09/24/17 10:35 09/24/17 10:35 09/24/17 10:35 09/24/17 10:35 Exam: VSS Gen: Not in any form of distress HEENT: Unremarkable, not pale Chest: Bilateral diffuse wheezing, no crackles Heart: S1, S2 only, no m/g/r Abdomen: Soft, not tender Extremities: Trace pedal edema Neuro: AAOX3. No focal deficits Skin: No rash - Assessment and Plan (1) CHETNA (acute kidney injury) Current Visit: Yes Status: Acute Assessment and Plan: Improving Hold IVF Give another dose of albumin Continue to monitor renal function Avoid nephrotoxins (2) Hyperkalemia Current Visit: Yes Status: Resolved Assessment and Plan: Due to CHETNA Improved now Continue to monitor (3) Ascites Current Visit: Yes Status: Chronic Assessment and Plan: s/p 6.5 L drained SBP ruled out in work up Prelim culture negative Continue to monitor Hold lasix/Adactone for now due to CHETNA (4) Cirrhosis Current Visit: Yes Status: Chronic Assessment and Plan: As above With portal HTN Consider propanolol po Ammonia level on presentation 66, patient is AAOX3 Likely due to alcoholic cirrhosis and hemochromatosis Continue to monitor GI eval for EGD today, discussed with Dr. Carlson (5) Acute blood loss anemia Current Visit: Yes Status: Acute Assessment and Plan: Hb 9.3, drop from admitting level of 12 Patient with black stool hemodynamically stable INR 1.3 on admission Type and screen PPI IV BID NPO till EGD Discontinue daily ASA Continue to monitor Hb q12h (6) Diabetes mellitus with peripheral angiopathy without gangrene Current Visit: Yes Status: Chronic Assessment and Plan: Continue current regimen, FS acceptable (7) Esophageal varices in alcoholic cirrhosis Current Visit: Yes Status: Chronic Assessment and Plan: As in anemia (8) Essential hypertension Current Visit: Yes Status: Chronic Assessment and Plan: Blood pressure currently acceptable, borderline low, continue to monitor Hold meds -Lisinopril, Lasix and Aldactone for now (9) History of alcohol dependence Current Visit: Yes Status: Chronic Assessment and Plan: Patient reports quiting alcohol about a month ago Continue supplements (10) Mixed hyperlipidemia Current Visit: Yes Status: Chronic Assessment and Plan: Continue home meds (11) Tobacco abuse Current Visit: Yes Status: Chronic Assessment and Plan: encourage cessation NRT (12) GI bleed Current Visit: Yes Status: Acute Assessment and Plan: as in anemia GI consulted (13) Cholangiocarcinoma Current Visit: Yes Status: Acute Assessment and Plan: Per Abdomen MRI 09/17: "1. Cirrhotic liver suspected to be related to hemochromatosis given diffuse iron deposition. There are no findings suggesting iron deposition elsewhere. 2. Multifocal lesions predominantly in the right hemiliver results and relative sparing of iron deposition, the largest measuring approximately 10.2 cm x 10.4 cm x 14.5 cm. The enhancement and location suggest peripheral cholangiocarcinoma. LI-RADS LR-M (probably or definitely malignant but not HCC specific). 3. Large ascites and venous collateral formation suggest a degree of portal hypertension. Additionally, suspected edematous wall thickening involving portions of the stomach, small bowel, colon suggest portal gastropathy, enteropathy, and colopathy, respectively. 4. Suggestion of nodularity in the greater omentum may be related to mesenteric venous collateral formation. However, peritoneal carcinomatosis is not excluded. Of note, no other findings of peritoneal nodularity are seen. 5. Edematous gallbladder wall thickening along the gallbladder fossa is most likely related to adjacent liver disease, hypoproteinemia, or ascites. Cholecystitis is considered unlikely. 6. 2.9 cm x 2.0 cm lesion in the inferior spleen with indeterminate appearance, potentially an infarct. Recommend attention on follow-up imaging" Oncology consulted and following For liver biopsy a.m - Time Spent with Patient Total time spent is greater than 50% in coordination of care (as documented) at patient's floor/unit and/or counseling patient: Plan of Care Discussed with: patient Internal Medicine: Result - Labs CBC & Chem 7: 09/24/17 04:29 09/24/17 04:29 Labs: Short CBC 09/24/17 Range/Units 04:29 WBC 7.5 (4.3-11.1) K/mcL Hgb 9.7 L D (12.9-16.9) g/dL Hct 28.0 L (37.5-50.1) % Plt Count 124 L (140-400) K/mcL Neutrophils # 5.0 (1.6-8.9) K/mcL BMP 09/24/17 04:29 Sodium 133 L Potassium 4.7 Chloride 108 H Carbon Dioxide 19 L BUN 55 H Creatinine 2.03 H Glucose 185 H Calcium 8.3 L - ABG Interpretation ABG results: PT/INR, D-dimer PT 14.6 Seconds (9.4-12.1) H 09/23/17 13:35 - VTE Documentation of Mechanical Device: Intermittent pneumatic compression device Consult Discharge Plan - Plan Referrals: Jannette Medina, INDUSTRIAL EDUCATION TEACHER [Primary Care Provider] - (3) Ascites Qualifiers: Ascites type: due to alcoholic cirrhosis Qualified Code(s): K70.31 - Alcoholic cirrhosis of liver with ascites (4) Cirrhosis Qualifiers: Hepatic cirrhosis type: alcoholic cirrhosis Ascites presence: with ascites Qualified Code(s): K70.31 - Alcoholic cirrhosis of liver with ascites (6) Diabetes mellitus with peripheral angiopathy without gangrene Qualifiers: Diabetes mellitus type: type 2 Diabetes mellitus oysterman insulin use: without oysterman use Qualified Code(s): E11.51 - Type 2 diabetes mellitus with diabetic peripheral angiopathy without gangrene (12) GI bleed Qualifiers: GI bleed type/associated pathology: melena Qualified Code(s): K92.1 - Sol
--- NOTE | 2017-09-24 13:02 | Oncology Inp Consult Note ---
<Bella Upton - Last Filed: 09/24/17 13:45> Date of Encounter: 09/24/17 Time of Encounter: 12:50 Assessment and Plan (1) Liver mass Status: Acute Assessment and plan: Patient had outpatient liver MRI which showed multiple liver masses Patient has a history of newly diagnosed cirrhosis one month ago likely secondary to history of alcohol use and possible hemochromatosis as heavy disposition as noted in the liver CT chest w/o contrast IR consulted for liver biopsy. Scheduled for tomorrow. Patient nothing by mouth after midnight (2) Cirrhosis Status: Chronic Assessment and plan: MELD 21 Child Rogers Class B Has Liver mass Qualifiers: Hepatic cirrhosis type: alcoholic cirrhosis Ascites presence: with ascites Qualified Code(s): K70.31 - Alcoholic cirrhosis of liver with ascites - Data of Consult Patient: new to practice Consult date: 09/24/17 Requesting Physician: Wilman Hong MD Primary Care Provider: Jannette Medina, - Consult Narrative Reason for consult: Liver mass History of present illness: Mr. Brunner is a 61 year old male presented with chief complaint of shortness of breath secondary to ascites. In the emergency room patient had paracentesis by IR and 6.5 L of fluid was pulled out. CT abdomen pelvis showed cirrhotic appearance of liver with multiple hypodense masses. Family reports patient has lost more weight in the last month up to 19 pounds. They are interested in knowing prognosis and treatment options. Patient was admitted to the [facility] one month ago and was newly diagnosed with cirrhosis, ascites. He has a history of alcohol abuse. Patient had outpatient MRI which showed cirrhotic liver suspected to related to hemachromatosis, multifocal lesions in the right tonya-liver with largest being 10.2 cm x 10.4 cm x 14.5 cm, nodularity of the greater omentum possible peritoneal carcinomatosis, peripheral cholangiocarcinoma. Patient has not had any biopsies to this date. Previous labs indicate a ferritin level , elevated F actin and smooth muscle antibody titers. Past Med Surg Social Fam HX - Past Medical History Medical history: cancer, COPD, diabetes, hypertension, other Additional medical history: DDD/OA. DM - CONTROLLED. HERNIA. 6-8 BEERS DAILY Psychiatric history: no psych history - Past Surgical History Surgical History: herniorrhaphy, other Additional surgical history: HERNIA REPAIR 2003. 11/08/15 L ENDARTERECTOMY/ POSSIBLE ILIAC STENT AND FEM TO FEM BYPASS @[facility] - Social History Smoking Status: Current every day smoker Smokeless Tobacco Status: No Alcohol use: none Drug use: none - Family History Mother Hx Family Cardiac Disorders: Yes Hx Family Respiratory Disorders: No Hx Family Cancer: No Hx Family GI Disorders: No Hx Family Endocrine Disorder: Yes (dm) Hx Family Neuromuscular Disorders: No Hx Family Neurologic Disorders: No Hx Family HEENT Disorders: No Hx Family Autoimmune Disorders: No Medications and Allergies Aspirin Enteric Coated [Aspirin EC] 81 mg PO DAILY 08/26/17 [History] Cyclobenzaprine HCl 5 mg PO BID PRN 08/26/17 [History] Glimepiride [Amaryl] 2 mg PO DAILY 08/26/17 [History] Lisinopril [Zestril] 40 mg PO DAILY 08/26/17 [History] Pioglitazone [Actos] 45 mg PO DAILY 08/26/17 [History] Furosemide [Lasix] 40 mg PO DAILY #30 tablet 08/29/17 [Rx] Spironolactone [Aldactone] 100 mg PO DAILY #30 tablet 08/29/17 [Rx] Citalopram Hydrobromide [Citalopram HBr] 20 mg PO DAILY 09/23/17 [History] 3 Allergy/AdvReac Type Severity Reaction Status Date / Time shellfish derived Allergy Anaphylaxis Verified 11/08/15 11:29 budesonide [From Symbicort] AdvReac ELEVATED BP Verified 11/08/15 11:29 cilostazol AdvReac SWEATS Verified 11/08/15 11:29 Formoterol [From Symbicort] AdvReac ELEVATED BP Verified 11/08/15 11:29 gabapentin [From Neurontin] AdvReac Confusion Verified 11/08/15 11:29 naproxen [From Naprosyn] AdvReac Nausea Verified 11/08/15 11:29 tramadol AdvReac Nausea Verified 11/08/15 11:29 Review of systems: Constitutional: Denies fever, chills HEENT: Denies headache, vision changes, neck pain, sore throat, rhinorrhea Heart: Denies chest pain palpitations Lungs: Reports shortness of breath, cough Abdomen: Reports nausea, abdominal distention, abdominal discomfort, constipation. Denies vomiting Back: Denies back pain Kidney: Denies dysuria, hematuria Skin: Denies rash, lesions Extremities: Denies swelling, pain Neuro: Denies numbness and tingling Oncology - Exam - Constitutional Vitals: Temp Pulse Resp BP Pulse Ox 98.2 F 86 19 112/66 100 09/24/17 10:35 09/24/17 10:35 09/24/17 10:35 09/24/17 10:35 09/24/17 10:35 - Additional findings Additional findings: General: Thin, male pleasant, without distress HEENT: Head atraumatic, normocephalic, EOMI, PERRL, neck nontender to palpation , absent lymphadenopathy, Moist Mucous Membranes, Heart: Regular rate and rhythm with no murmur Lungs: Clear to auscultation bilaterally Abdomen: Soft, nontender, distended, distant bowel sounds Skin: warm and dry, absent rash Extremities: Absent pedal edema, Neuro: Alert oriented 3 Vascular: Pedal and radial pulses 2 out of 4 Oncology - Results Labs: 3 09/24/17 09/24/17 09/23/17 04:29 04:29 21:23 WBC 7.5 RBC 2.72 L Hgb 9.7 L D Hct 28.0 L MCV 102.9 H MCH 35.7 H MCHC 34.6 RDW 12.7 Plt Count 124 L MPV 10.2 Immature Gran % 0.4 Seg Neutrophils % 65.9 Lymphocytes % 17.4 Monocytes % 10.9 Eosinophils % 4.6 Basophils % 0.8 Neutrophils # 5.0 Lymphocytes # 1.3 Monocytes # 0.8 Eosinophils # 0.4 Basophils # 0.1 Sodium 133 L Potassium 4.7 Chloride 108 H Carbon Dioxide 19 L BUN 55 H Creatinine 2.03 H Est GFR ( Amer) 41 L Est GFR (Non-Af Amer) 34 L BUN/Creatinine Ratio 27 H Glucose 185 H POC Glucose Calculated Osmolality 296 Calcium 8.3 L Ammonia 66 H 3 09/23/17 20:47 WBC RBC Hgb Hct MCV MCH MCHC RDW Plt Count MPV Immature Gran % Seg Neutrophils % Lymphocytes % Monocytes % Eosinophils % Basophils % Neutrophils # Lymphocytes # Monocytes # Eosinophils # Basophils # Sodium Potassium Chloride Carbon Dioxide BUN Creatinine Est GFR ( Amer) Est GFR (Non-Af Amer) BUN/Creatinine Ratio Glucose POC Glucose 240 H Calculated Osmolality Calcium Ammonia Consult Discharge Plan - Plan Referrals: Jannette Medina, MANDREL CLEANER [Primary Care Provider] - <Saravanan Pal - Last Filed: 09/25/17 08:46> Date of Encounter: 09/25/17 - Data of Consult Requesting Physician: Wilman Hong MD Primary Care Provider: Jannette Medina, - Consult Narrative History of present illness: Mr. Brunner is a 61 year old male without findings on imaging, possible hepatobiliary primary, ascites? Secondary to carcinomatosis versus liver dysfunction, cirrhotic liver in imaging, status post paracentesis fluid analysis report pending. We will attempt a liver biopsy after more fluid drainage for diagnoses as patient family wants to pursue with same. They had all questions about treatments available including a liver transplant. Patient was seen bedside and plan was discussed with patient and and rest of family members. I examined this patient and my medical decision-making was reviewed with resident physician Bella Oswald. I agree with the documented findings, disposition and treatment plan as described except to the extent set forth below. Oncology - Exam - Constitutional Vitals: Temp Pulse Resp BP Pulse Ox 98.2 F 85 16 103/62 97 09/25/17 07:39 09/25/17 07:39 09/25/17 07:39 09/25/17 07:39 09/25/17 07:39 Oncology - Results Labs: 3 09/25/17 09/25/17 09/25/17 04:30 04:30 04:30 WBC 7.1 RBC 2.88 L Hgb 9.9 L Hct 29.5 L MCV 102.4 H MCH 34.4 H MCHC 33.6 RDW 12.8 Plt Count 120 L MPV 9.7 Immature Gran % 0.3 Seg Neutrophils % 65.1 Lymphocytes % 19.5 Monocytes % 7.5 Eosinophils % 6.8 Basophils % 0.8 Neutrophils # 4.6 Lymphocytes # 1.4 Monocytes # 0.5 Eosinophils # 0.5 Basophils # 0.1 Sodium 137 Potassium 4.8 Chloride 111 H Carbon Dioxide 20 L BUN 42 H Creatinine 1.55 H Est GFR ( Amer) 56 L Est GFR (Non-Af Amer) 46 L BUN/Creatinine Ratio 27 H Glucose 123 H POC Glucose Calculated Osmolality 296 Calcium 8.7 Ammonia Stool Occult Blood Blood Type A POSITIVE Antibody Screen NEGATIVE 3 09/24/17 09/24/17 09/24/17 16:45 15:47 11:47 WBC RBC Hgb Hct MCV MCH MCHC RDW Plt Count MPV Immature Gran % Seg Neutrophils % Lymphocytes % Monocytes % Eosinophils % Basophils % Neutrophils # Lymphocytes # Monocytes # Eosinophils # Basophils # Sodium Potassium Chloride Carbon Dioxide BUN Creatinine Est GFR ( Amer) Est GFR (Non-Af Amer) BUN/Creatinine Ratio Glucose POC Glucose 140 H 161 H Calculated Osmolality Calcium Ammonia Stool Occult Blood Positive A Blood Type Antibody Screen 3 09/24/17 09/24/17 09/24/17 06:57 04:29 04:29 WBC 7.5 RBC 2.72 L Hgb 9.7 L D Hct 28.0 L MCV 102.9 H MCH 35.7 H MCHC 34.6 RDW 12.7 Plt Count 124 L MPV 10.2 Immature Gran % 0.4 Seg Neutrophils % 65.9 Lymphocytes % 17.4 Monocytes % 10.9 Eosinophils % 4.6 Basophils % 0.8 Neutrophils # 5.0 Lymphocytes # 1.3 Monocytes # 0.8 Eosinophils # 0.4 Basophils # 0.1 Sodium 133 L Potassium 4.7 Chloride 108 H Carbon Dioxide 19 L BUN 55 H Creatinine 2.03 H Est GFR ( Amer) 41 L Est GFR (Non-Af Amer) 34 L BUN/Creatinine Ratio 27 H Glucose 185 H POC Glucose 162 H Calculated Osmolality 296 Calcium 8.3 L Ammonia Stool Occult Blood Blood Type Antibody Screen 3 09/23/17 09/23/17 21:23 20:47 WBC RBC Hgb Hct MCV MCH MCHC RDW Plt Count MPV Immature Gran % Seg Neutrophils % Lymphocytes % Monocytes % Eosinophils % Basophils % Neutrophils # Lymphocytes # Monocytes # Eosinophils # Basophils # Sodium Potassium Chloride Carbon Dioxide BUN Creatinine Est GFR ( Amer) Est GFR (Non-Af Amer) BUN/Creatinine Ratio Glucose POC Glucose 240 H Calculated Osmolality Calcium Ammonia 66 H Stool Occult Blood Blood Type Antibody Screen
[2017-09-24] MEDS ORDERED: Lidocaine -MPF 2% 2 ML VIAL ONE (13:47)
[2017-09-24] MEDS ORDERED: *HR* Propofol 200 MG/20 ML VIAL IVP ONE ×2 (13:47→14:09)
--- NOTE | 2017-09-24 14:21 | Anesthesia Evaluation PreOp ---
Date of Encounter: 09/24/17 Time of Encounter: 14:30 - Past History Planned Operation: EGD Cardiac History: HTN, Other (PVD, s/p fem-fem bypass, iliac stents) Pulmonary History: Smoker Other Medical History: Hepatic (alcoholic cirrhosis. Presented with SOB secondary to ascites. Was drained of 6 liters in IR yesterday with improvement of symptoms. Has had no pulmonary symptoms. His abdominal exam has liver mass , possible CA.), Renal (elevated BUN probably secondary to ascites, abdominal distention and dehydration. Has improved in hospital.) Anesthesia History: No Prior Anesthetic Complications, Past Anesthesia Alcohol Use: none Drug use: none Medications and Allergies Aspirin Enteric Coated [Aspirin EC] 81 mg PO DAILY 08/26/17 [History] Cyclobenzaprine HCl 5 mg PO BID PRN 08/26/17 [History] Glimepiride [Amaryl] 2 mg PO DAILY 08/26/17 [History] Lisinopril [Zestril] 40 mg PO DAILY 08/26/17 [History] Pioglitazone [Actos] 45 mg PO DAILY 08/26/17 [History] Furosemide [Lasix] 40 mg PO DAILY #30 tablet 08/29/17 [Rx] Spironolactone [Aldactone] 100 mg PO DAILY #30 tablet 08/29/17 [Rx] Citalopram Hydrobromide [Citalopram HBr] 20 mg PO DAILY 09/23/17 [History] 3 Allergy/AdvReac Type Severity Reaction Status Date / Time shellfish derived Allergy Anaphylaxis Verified 11/08/15 11:29 budesonide [From Symbicort] AdvReac ELEVATED BP Verified 11/08/15 11:29 cilostazol AdvReac SWEATS Verified 11/08/15 11:29 Formoterol [From Symbicort] AdvReac ELEVATED BP Verified 11/08/15 11:29 gabapentin [From Neurontin] AdvReac Confusion Verified 11/08/15 11:29 naproxen [From Naprosyn] AdvReac Nausea Verified 11/08/15 11:29 tramadol AdvReac Nausea Verified 11/08/15 11:29 - Meds/Allergy Pre-op Review Medications Reviewed: Yes Allergies Reviewed: Yes Beta Blockers on Current Med List: No Anesthesia Results - Labs 09/24/17 04:29 09/24/17 04:29 - Imaging EKG: report reviewed (sinus rhythm with left atrial enlargement, poss. old inf. infarct) Anesthesia Exam Selected Entries 09/24/17 10:35 Temperature 98.2 F Pulse Rate 86 Respiratory Rate 19 Blood Pressure 112/66 O2 Sat by Pulse Oximetry 100 Weight: 81 kg BMI 24 NPO (# of Hours): over 8 hours - HEENT Pupil (Motor): Pupils equal Mallampati: I Teeth: Edentulous Oral Opening: Greater than 3 - Cardiac Rhythm: Regular Murmur: None - Pulmonary Breath Sounds: bilateral Clear Respiratory Effort: Symmetrical Anesthesia Assess/Plan ASA Score: 4 Modified Lorri Scale for Level of Consciousness: Cooperative, oriented, and tranquil Anesthetic Plan: MAC Monitoring Plan: Standard Monitors (Discussed MAC anesthesia, agreed to proceed. )
[2017-09-24] MEDS: Pantoprazole 40 MG VIAL IVP SCH (17:52)
[2017-09-25 04:49] LABS: Basophils # 0.1 K/mcL (0.0-0.2); Basophils % 0.8 %; Eosinophils # 0.5 K/mcL (0.0-0.6); Eosinophils % 6.8 %; Hematocrit 29.5 % (37.5-50.1); Hemoglobin 9.9 g/dL (12.9-16.9); Immature Granulocytes % 0.3 % (0-4); Lymphocytes # 1.4 K/mcL (0.6-4.6); Lymphocytes % 19.5 %; Mean Corpuscular HGB Conc 33.6 g/dL (31.6-35.5); Mean Corpuscular Hemoglobin 34.4 pg (28.0-33.3); Mean Corpuscular Volume 102.4 fL (83.0-100.0); Mean Platelet Volume 9.7 fL (9.4-12.4); Monocytes # 0.5 K/mcL (0.0-1.3); Monocytes % 7.5 %; Neutrophils # 4.6 K/mcL (1.6-8.9); Platelet Count 120 K/mcL (140-400); Red Blood Count 2.88 M/mcL (4.19-5.50); Red Cell Distribution Width 12.8 % (11.5-14.5); Segmented Neutrophils % 65.1 %
[2017-09-25] MEDS: Pantoprazole 40 MG VIAL IVP SCH ×2 (05:05→17:45)
[2017-09-25 05:06] LABS: Calcium 8.7 mg/dL (8.6-10.3); Potassium 4.8 mEq/L (3.5-5.1)
[2017-09-25] MEDS: Insulin LISPRO 300 UNITS/3 ML VIAL SQ SCH ×4 (08:14→20:32)
[2017-09-25] MEDS: Octreotide 400 MCG in 0.9 % Sodium Chloride 100 ML IVC SCH (08:36)
[2017-09-25] MEDS: Nicotine 21 MG PATCH.TD24 TD SCH (08:37)
[2017-09-25] MEDS ORDERED: *HR* Midazolam HCl 2 MG/2 ML VIAL IVP ONE (11:42)
[2017-09-25] MEDS ORDERED: *HR* FentaNYL (PF) 100 MCG/2 ML VIAL IVP ONE (11:43)
--- NOTE | 2017-09-25 12:04 | Internal Med Progress Note ---
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 he is admitted and being managed for CHETNA with metabolic acidosis, hyponatremia and acute anemia due to GIB s/p 6.5 L of peritoneal fluid drained, albumin given Seen and evaluated at the bedside with his spouse this a.m He has no new complains, except requesting to go home HB stable at 9 Awaiting liver biopsy at time of eval s/p EGD 09/25 with evidence of severe portal gastropathy with spontaneous bleeding in the gastric body and duodenum Renal function continues to improve - Exam Vitals: Temp Pulse Resp BP Pulse Ox 98.6 F 84 16 117/70 98 09/25/17 11:10 09/25/17 11:10 09/25/17 11:10 09/25/17 11:10 09/25/17 11:10 Exam: VSS Gen: Not in any form of distress HEENT: Unremarkable, not pale Chest: No wheezing on exam today, no crackles Heart: S1, S2 only, no m/g/r Abdomen: Soft, not tender Extremities: Trace pedal edema Neuro: AAOX3. No focal deficits Skin: No rash Psych: Normal affect - Assessment and Plan (1) CHETNA (acute kidney injury) Current Visit: Yes Status: Acute Assessment and Plan: Improving Cr 1.55 (2.03 09/24) Continue to monitor renal function Avoid nephrotoxins (2) Hyperkalemia Current Visit: Yes Status: Resolved Assessment and Plan: Due to CHETNA Resolved Continue to monitor (3) Ascites Current Visit: Yes Status: Chronic Assessment and Plan: s/p 6.5 L drained SBP ruled out in work up Prelim culture negative Continue to monitor Hold lasix/Adactone for now due to CHETNA Will resume lasix once renal function returns to baseline May need additional paracentensis prior to discharge (4) Cirrhosis Current Visit: Yes Status: Chronic Assessment and Plan: As above With portal HTN Consider propanolol po, blood pressure currently low normal Ammonia level on presentation 66, patient is AAOX3 Likely due to alcoholic cirrhosis and hemochromatosis Continue to monitor EGD noted for spontaneous bleeding due to severe portal HTN (5) Acute blood loss anemia Current Visit: Yes Status: Acute Assessment and Plan: Hb 9.3, drop from admitting level of 12 Patient with black stool Hemodynamically stable INR 1.3 on admission Continue to hold ASA s/p EGD with findings noted Hb currently stable Continue PPI and OCtreotide, as well as carafate (6) Diabetes mellitus with peripheral angiopathy without gangrene Current Visit: Yes Status: Chronic Assessment and Plan: Continue current regimen, FS acceptable (7) Esophageal varices in alcoholic cirrhosis Current Visit: Yes Status: Chronic Assessment and Plan: As in anemia (8) Essential hypertension Current Visit: Yes Status: Chronic Assessment and Plan: Blood pressure currently acceptable, borderline low, continue to monitor Hold meds -Lisinopril, Lasix and Aldactone for now (9) History of alcohol dependence Current Visit: Yes Status: Chronic Assessment and Plan: Patient reports quiting alcohol about a month ago Continue supplements (10) Mixed hyperlipidemia Current Visit: Yes Status: Chronic Assessment and Plan: Continue home meds (11) Tobacco abuse Current Visit: Yes Status: Chronic Assessment and Plan: encourage cessation NRT (12) GI bleed Current Visit: Yes Status: Acute Assessment and Plan: as in anemia GI consulted, appreciate recs (13) Cholangiocarcinoma Current Visit: Yes Status: Suspected Assessment and Plan: Per Abdomen MRI 09/17: "1. Cirrhotic liver suspected to be related to hemochromatosis given diffuse iron deposition. There are no findings suggesting iron deposition elsewhere. 2. Multifocal lesions predominantly in the right hemiliver results and relative sparing of iron deposition, the largest measuring approximately 10.2 cm x 10.4 cm x 14.5 cm. The enhancement and location suggest peripheral cholangiocarcinoma. LI-RADS LR-M (probably or definitely malignant but not HCC specific). 3. Large ascites and venous collateral formation suggest a degree of portal hypertension. Additionally, suspected edematous wall thickening involving portions of the stomach, small bowel, colon suggest portal gastropathy, enteropathy, and colopathy, respectively. 4. Suggestion of nodularity in the greater omentum may be related to mesenteric venous collateral formation. However, peritoneal carcinomatosis is not excluded. Of note, no other findings of peritoneal nodularity are seen. 5. Edematous gallbladder wall thickening along the gallbladder fossa is most likely related to adjacent liver disease, hypoproteinemia, or ascites. Cholecystitis is considered unlikely. 6. 2.9 cm x 2.0 cm lesion in the inferior spleen with indeterminate appearance, potentially an infarct. Recommend attention on follow-up imaging" Oncology consulted and following For liver biopsy today Chest CT without contrast with no mets - Time Spent with Patient Total time spent is greater than 50% in coordination of care (as documented) at patient's floor/unit and/or counseling patient: Greater than 35 minutes Plan of Care Discussed with: patient Internal Medicine: Result - Labs CBC & Chem 7: 09/25/17 04:30 09/25/17 04:30 Labs: Short CBC 09/25/17 Range/Units 04:30 WBC 7.1 (4.3-11.1) K/mcL Hgb 9.9 L (12.9-16.9) g/dL Hct 29.5 L (37.5-50.1) % Plt Count 120 L (140-400) K/mcL Neutrophils # 4.6 (1.6-8.9) K/mcL BMP 09/25/17 04:30 Sodium 137 Potassium 4.8 Chloride 111 H Carbon Dioxide 20 L BUN 42 H Creatinine 1.55 H Glucose 123 H Calcium 8.7 - ABG Interpretation ABG results: PT/INR, D-dimer PT 14.6 Seconds (9.4-12.1) H 09/23/17 13:35 - Impressions Impressions Chest CT 09/24/17 13:44 IMPRESSION: 1. No evidence for metastatic disease in the lungs. 2. Partially imaged cirrhotic liver with large hypodense mass occupying most of the right lobe along with other smaller hypodense masses. 3. Partially imaged large volume ascites. Please see dedicated CT abdomen pelvis 09/23/2017. D/ / Erickson Hoffman MD / Erickson Hoffman MD Interpreting Provider: Erickson Hoffman MD - VTE Documentation of Mechanical Device: Intermittent pneumatic compression device Consult Discharge Plan - Plan Referrals: Jannette Medina, OPERATOR [employer]IST [employer] [Primary Care Provider] - (3) Ascites Qualifiers: Ascites type: due to alcoholic cirrhosis Qualified Code(s): K70.31 - Alcoholic cirrhosis of liver with ascites (4) Cirrhosis Qualifiers: Hepatic cirrhosis type: alcoholic cirrhosis Ascites presence: with ascites Qualified Code(s): K70.31 - Alcoholic cirrhosis of liver with ascites (6) Diabetes mellitus with peripheral angiopathy without gangrene Qualifiers: Diabetes mellitus type: type 2 Diabetes mellitus vermin exterminator insulin use: without vermin exterminator use Qualified Code(s): E11.51 - Type 2 diabetes mellitus with diabetic peripheral angiopathy without gangrene (12) GI bleed Qualifiers: GI bleed type/associated pathology: melena Qualified Code(s): K92.1 - Melena
--- NOTE | 2017-09-25 12:55 | IR Consult Note ---
Date of Encounter: 09/25/17 Time of Encounter: 12:00 Assessment and Plan (1) Liver lesion, right lobe Current Visit: No Status: Acute Referred for biopsy right lobe liver lesion. After reviewing his MRI and discussing with another body radiologist, the liver has a cirrhotic appearance with generalized heterogeneity and no restrictive diffusion to suggest a mass. He also has ascites which is a relative contraindication for percutaneous liver biopsy. Given his volume of ascites despite large volume paracentesis 2 days ago and the lack of restrictive diffusion on the MRI the risks of biopsy are too high. I would suggest repeat MRI in 3 months. He can get intermittent paracentesis if his ascites becomes symptomatic. Discussed with Dr Mayer. Physicians: Wilman Hong MD Consult Comment: Thank you for the consult. Call [facility] with questions or concerns. Past Med Surg Social Fam HX - Past Medical History Medical history: cancer, COPD, diabetes, hypertension, other Additional medical history: DDD/OA. DM - CONTROLLED. HERNIA. 6-8 BEERS DAILY Psychiatric history: no psych history - Past Surgical History Surgical History: herniorrhaphy, other Additional surgical history: HERNIA REPAIR 2003. 11/08/15 L ENDARTERECTOMY/ POSSIBLE ILIAC STENT AND FEM TO FEM BYPASS @[facility] - Social History Smoking Status: Current every day smoker Smokeless Tobacco Status: No Alcohol use: none Drug use: none - Family History Mother Hx Family Cardiac Disorders: Yes Hx Family Respiratory Disorders: No Hx Family Cancer: No Hx Family GI Disorders: No Hx Family Endocrine Disorder: Yes (dm) Hx Family Neuromuscular Disorders: No Hx Family Neurologic Disorders: No Hx Family HEENT Disorders: No Hx Family Autoimmune Disorders: No Medications and Allergies Aspirin Enteric Coated [Aspirin EC] 81 mg PO DAILY 08/26/17 [History] Cyclobenzaprine HCl 5 mg PO BID PRN 08/26/17 [History] Glimepiride [Amaryl] 2 mg PO DAILY 08/26/17 [History] Lisinopril [Zestril] 40 mg PO DAILY 08/26/17 [History] Pioglitazone [Actos] 45 mg PO DAILY 08/26/17 [History] Furosemide [Lasix] 40 mg PO DAILY #30 tablet 08/29/17 [Rx] Spironolactone [Aldactone] 100 mg PO DAILY #30 tablet 08/29/17 [Rx] Citalopram Hydrobromide [Citalopram HBr] 20 mg PO DAILY 09/23/17 [History] 3 Allergy/AdvReac Type Severity Reaction Status Date / Time shellfish derived Allergy Anaphylaxis Verified 11/08/15 11:29 budesonide [From Symbicort] AdvReac ELEVATED BP Verified 11/08/15 11:29 cilostazol AdvReac SWEATS Verified 11/08/15 11:29 Formoterol [From Symbicort] AdvReac ELEVATED BP Verified 11/08/15 11:29 gabapentin [From Neurontin] AdvReac Confusion Verified 11/08/15 11:29 naproxen [From Naprosyn] AdvReac Nausea Verified 11/08/15 11:29 tramadol AdvReac Nausea Verified 11/08/15 11:29 Exam Vital Signs, Last 4 Hours Temp Pulse Resp BP Pulse Ox 09/25/17 12:33 85 15 101/53 09/25/17 11:10 98.6 F 84 16 117/70 98 Results Reviewed 09/25/17 04:30 09/25/17 04:30 Lab Results 09/25/17 09/25/17 09/24/17 04:30 04:30 04:29 WBC 7.1 RBC 2.88 L Hgb 9.9 L Hct 29.5 L MCV 102.4 H MCH 34.4 H MCHC 33.6 RDW 12.8 Plt Count 120 L MPV 9.7 Neutrophils # 4.6 Lymphocytes # 1.4 Monocytes # 0.5 Eosinophils # 0.5 Basophils # 0.1 Sodium 137 133 L Potassium 4.8 4.7 Chloride 111 H 108 H Carbon Dioxide 20 L 19 L BUN 42 H 55 H Creatinine 1.55 H 2.03 H Est GFR ( Amer) 56 L 41 L Est GFR (Non-Af Amer) 46 L 34 L BUN/Creatinine Ratio 27 H 27 H Glucose 123 H 185 H Calcium 8.7 8.3 L 09/24/17 04:29 WBC 7.5 RBC 2.72 L Hgb 9.7 L D Hct 28.0 L MCV 102.9 H MCH 35.7 H MCHC 34.6 RDW 12.7 Plt Count 124 L MPV 10.2 Neutrophils # 5.0 Lymphocytes # 1.3 Monocytes # 0.8 Eosinophils # 0.4 Basophils # 0.1 Sodium Potassium Chloride Carbon Dioxide BUN Creatinine Est GFR ( Amer) Est GFR (Non-Af Amer) BUN/Creatinine Ratio Glucose Calcium Consult Discharge Plan - Plan Referrals: Jannette Medina CNP [Primary Care Provider] -
--- NOTE | 2017-09-25 13:11 | Oncology Inp Progress Note ---
Date of Encounter: 09/25/17 Time of Encounter: 13:09 (1) Liver mass Current Visit: Yes Status: Ruled-out Assessment and plan: patient was scheduled for Liver biopsy however intervention radiologist reviewed the patient's MRI and reported that there is no observable liver mass He confirmed this with another radiologist. Plan: Repeat MRI in 3 months await ascitic fluid cytology Patient should follow-up with GI. Oncology: Subj Interval history: no acute events overnight. Patient appears weak and lethargic. Reports his abdominal distension is worsening. He denies chest pain. Reports sob and abdominal discomfort. - Constitutional Vitals: Vital Signs Temp Pulse Resp BP Pulse Ox 09/25/17 12:33 85 15 101/53 09/25/17 11:10 98.6 F 84 16 117/70 98 09/25/17 07:39 98.2 F 85 16 103/62 97 09/25/17 04:12 98.7 F 91 16 90/45 98 09/25/17 00:40 98.3 F 93 15 104/62 99 09/24/17 21:19 98.5 F 86 15 99/63 100 09/24/17 19:53 98 09/24/17 15:54 98.1 F 87 19 95/63 98 09/24/17 14:50 86 16 119/66 96 Intake and Output 09/24/17 09/25/17 09/25/17 23:59 07:59 15:59 Intake Total 240 / 240 Balance 240 / 240 Intake: Oral 240 / 240 Other: # Voids 1 Weight 79.923 kg Blood Glucose* 163 103 Patient Weight 09/25/17 23:59 Weight 79.923 kg - Additional findings Additional findings: General: Thin, male pleasant, without distress, weak Heart: Regular rate and rhythm with no murmur Lungs: Clear to auscultation bilaterally Abdomen: Soft, nontender, distended, distant bowel sounds Skin: warm and dry, absent rash Extremities: Absent pedal edema, Neuro: Alert oriented 3 Vascular: Pedal and radial pulses 2 out of 4 Oncology: Obj Data - Labs CBC & Chem 7: 09/25/17 04:30 09/25/17 04:30 Labs: Laboratory Results - last 24 hr 09/24/17 09/24/17 09/24/17 06:57 11:47 15:47 WBC RBC Hgb Hct MCV MCH MCHC RDW Plt Count MPV Immature Gran % Seg Neutrophils % Lymphocytes % Monocytes % Eosinophils % Basophils % Neutrophils # Lymphocytes # Monocytes # Eosinophils # Basophils # Sodium Potassium Chloride Carbon Dioxide BUN Creatinine Est GFR ( Amer) Est GFR (Non-Af Amer) BUN/Creatinine Ratio Glucose POC Glucose 162 H 161 H 140 H Calculated Osmolality Calcium Iron % Saturation Transferrin Ferritin Stool Occult Blood Blood Type Antibody Screen 09/24/17 09/24/17 09/25/17 16:45 21:24 04:30 WBC 7.1 RBC 2.88 L Hgb 9.9 L Hct 29.5 L MCV 102.4 H MCH 34.4 H MCHC 33.6 RDW 12.8 Plt Count 120 L MPV 9.7 Immature Gran % 0.3 Seg Neutrophils % 65.1 Lymphocytes % 19.5 Monocytes % 7.5 Eosinophils % 6.8 Basophils % 0.8 Neutrophils # 4.6 Lymphocytes # 1.4 Monocytes # 0.5 Eosinophils # 0.5 Basophils # 0.1 Sodium Potassium Chloride Carbon Dioxide BUN Creatinine Est GFR ( Amer) Est GFR (Non-Af Amer) BUN/Creatinine Ratio Glucose POC Glucose 163 H Calculated Osmolality Calcium Iron % Saturation Transferrin Ferritin Stool Occult Blood Positive A Blood Type Antibody Screen 09/25/17 09/25/17 09/25/17 04:30 04:30 10:44 WBC RBC Hgb Hct MCV MCH MCHC RDW Plt Count MPV Immature Gran % Seg Neutrophils % Lymphocytes % Monocytes % Eosinophils % Basophils % Neutrophils # Lymphocytes # Monocytes # Eosinophils # Basophils # Sodium 137 Potassium 4.8 Chloride 111 H Carbon Dioxide 20 L BUN 42 H Creatinine 1.55 H Est GFR ( Amer) 56 L Est GFR (Non-Af Amer) 46 L BUN/Creatinine Ratio 27 H Glucose 123 H POC Glucose 103 H Calculated Osmolality 296 Calcium 8.7 Iron 141 % Saturation 74 H Transferrin 136 L Ferritin 960 H Stool Occult Blood Blood Type A POSITIVE Antibody Screen NEGATIVE - Impressions Impressions Chest CT 09/24/17 13:44 IMPRESSION: 1. No evidence for metastatic disease in the lungs. 2. Partially imaged cirrhotic liver with large hypodense mass occupying most of the right lobe along with other smaller hypodense masses. 3. Partially imaged large volume ascites. Please see dedicated CT abdomen pelvis 09/23/2017. D/ / Erickson Hoffman MD / Erickson Hoffman MD Interpreting Provider: Erickson Hoffman MD - ABG Interpretation ABG results: PT/INR, D-dimer PT 14.6 Seconds (9.4-12.1) H 09/23/17 13:35 Consult Discharge Plan - Plan Referrals: Jannette Medina, SALON ASSISTANT [Primary Care Provider] -
--- NOTE | 2017-09-25 13:24 | Gastroenterology Consult Note ---
<Veronika Reyes - Last Filed: 09/25/17 13:27> Date of Encounter: 09/25/17 Time of Encounter: 11:15 - Assessment and plan (1) Ascites Current Visit: Yes Status: Chronic Assessment and plan: Continue lasix and spironolactone, paracentesis as needed Qualifiers: Ascites type: due to alcoholic cirrhosis Qualified Code(s): K70.31 - Alcoholic cirrhosis of liver with ascites (2) Cirrhosis Current Visit: Yes Status: Chronic Assessment and plan: will check AFP, iron studies and hemochromatosis panel, needs nonselective beta gemma, yearly EGD, and paracentesis as needed Qualifiers: Hepatic cirrhosis type: alcoholic cirrhosis Ascites presence: with ascites Qualified Code(s): K70.31 - Alcoholic cirrhosis of liver with ascites (3) Liver lesion, right lobe Current Visit: No Status: Acute Assessment and plan: Liver biopsies tomorrow, hCC vs cholangiocarcinoma, rule out hemochromatosis - Time Spent With Patient Total time spent is greater than 50% in coordination of care (as documented) at patient's floor/unit and/or counseling patient: GI History of Present Illness - Data of Consult Patient: known to practice within the last 3 years Consult date: 09/25/17 Requesting Physician: Wilman Hong MD - Consult Narrative Reason for consult: cirrhosis/liver masses History of present illness: Mr. Brunner is a 61 year old male with history of cirrhosis. He presented with sob with increasing ascites, abdominal pain, and constipation. He had thoracentesis 1 month ago, and was started on lasix 40 mg and spironolactone 100 mg. IR performed a paracentesis yesterday and 6.5 L removed. The patient cxr showed no significant effusion, or acute course. Abd ct showed cirrhotic appearance of liver, with multiple hypodense masses. WBC is 8.5, sodium is 131, , potassium 5.2, creatinine 2.61, bun is elevate at 56. CHETNA likely a result of the cirrhosis and/or dehydration. While the patient is in-house he and family have requested for oncology to come and speak to them regarding treatment options. MRI as an outpatient showed multiple liver masses with iron deposits. He is scheduled for liver biopsy tomorrow. EGD 09/24/1718 grade 2 esophageal varices, spontaneous bleeding in the stomach and duodenum colon: 12/11 20 mm polyp in the sigmoid colon, 22 mm polyp in sigmoid colon ( tubular adenomas), angioectasias without bleeding NSAIDS: asa 81 mg Past Med Surg Social Fam HX - Past Medical History Medical history: cancer, COPD, diabetes, hypertension, other Additional medical history: DDD/OA. DM - CONTROLLED. HERNIA. 6-8 BEERS DAILY Psychiatric history: no psych history - Past Surgical History Surgical History: herniorrhaphy, other Additional surgical history: HERNIA REPAIR 2003. 11/08/15 L ENDARTERECTOMY/ POSSIBLE ILIAC STENT AND FEM TO FEM BYPASS @[facility] - Social History Smoking Status: Current every day smoker Smokeless Tobacco Status: No Alcohol use: none Drug use: none - Family History Mother Hx Family Cardiac Disorders: Yes Hx Family Respiratory Disorders: No Hx Family Cancer: No Hx Family GI Disorders: No Hx Family Endocrine Disorder: Yes (dm) Hx Family Neuromuscular Disorders: No Hx Family Neurologic Disorders: No Hx Family HEENT Disorders: No Hx Family Autoimmune Disorders: No Review of Systems: GI: as per [facility]: denies fever, or chills EYES: denies yellow discoloration ENT: denies pain with swallowing or difficulty swallowing CARDIO: denies chest pain, palpitations RESP: Shortness of breath with exertion : reports dark urine NEURO: increased weakness HEME: Denies any bruising MS: denies joint pain, joint swelling or back pain. DERM: denies rash or itching PSYCH: Denies history of anxiety or depression - Constitutional Vitals: Temp Pulse Resp BP Pulse Ox 98.6 F 85 15 101/53 98 09/25/17 11:10 09/25/17 12:33 09/25/17 12:33 09/25/17 12:33 09/25/17 11:10 Exam: CONSTITUTIONAL:~drowsy, no acute distress.~HEAD:~normocephalic, facial wasting noted.~EYES:~no jaundice.~NECK:~no obvious swelling.~HEART:~regular rate and rhythm, no murmurs.~LUNGS:~bilateral fair air entry.~ABDOMEN:~distended, soft, ascites noted, non tender, no masses palpable, no organomegaly.~RECTAL EXAM:~ Deferred.~EXTREMITIES:~no clubbing, cyanosis or edema.~SKIN:~no stigmata of chronic liver disease.~NEUROLOGIC:~no obvious focal defect.~~~~ Results - Labs CBC & Chem 7: 09/25/17 04:30 09/25/17 04:30 Labs: Last Result Calcium 8.7 mg/dL (8.6-10.3) 09/25/17 04:30 Iron 141 mcg/dL (65-175) 09/25/17 04:30 % Saturation 74 % (20-55) H 09/25/17 04:30 Transferrin 136 mg/dL (203-362) L 09/25/17 04:30 Ferritin 960 ng/mL (20-250) H 09/25/17 04:30 Troponin I < 0.03 ng/mL (< 0.04) 09/23/17 13:35 Peritoneal Appearance HAZY (Clear) 09/23/17 15:10 Peritoneal Volume 60.0 mL 09/23/17 15:10 Peritoneal RBC < 0.002 M/mcL (0.000-0.002) 09/23/17 15:10 Periton Tot Nuc Cells 132 TNC/mcL (0-300) 09/23/17 15:10 Periton Band Neuts Test Not Performed 09/23/17 15:10 Periton Lymphocytes % 30.0 % 09/23/17 15:10 Periton Monocytes % 19.0 % 09/23/17 15:10 Periton Other Cells % 41.0 % 09/23/17 15:10 Peritoneal Tot Protein < 3.0 g/dL (No Ref Range) 09/23/17 15:10 Peritoneal Albumin < 1.5 g/dL (No Ref Range) 09/23/17 15:10 Peritoneal LDH 56 Units/L (No Ref Range) 09/23/17 15:10 Peritoneal Glucose 121 mg/dL (No Ref Range) 09/23/17 15:10 Peritoneal Amylase 10 Units/L (No Ref Range) 09/23/17 15:10 Stool Occult Blood Positive (Negative) A 09/24/17 16:45 Entire Visit Hgb 9.9 g/dL (12.9-16.9) L 09/25/17 04:30 Hct 29.5 % (37.5-50.1) L 09/25/17 04:30 PT 14.6 Seconds (9.4-12.1) H 09/23/17 13:35 Ferritin 960 ng/mL (20-250) H 09/25/17 04:30 Total Bilirubin 1.1 mg/dL (0.3-1.0) H 09/23/17 13:35 AST 103 Units/L (13-39) H 09/23/17 13:35 ALT 23 Units/L (7-52) 09/23/17 13:35 Ammonia 66 mcmol/L (16-53) H 09/23/17 21:23 - ABG ABG results: PT/INR, D-dimer PT 14.6 Seconds (9.4-12.1) H 09/23/17 13:35 - Impressions Impressions Chest CT 09/24/17 13:44 IMPRESSION: 1. No evidence for metastatic disease in the lungs. 2. Partially imaged cirrhotic liver with large hypodense mass occupying most of the right lobe along with other smaller hypodense masses. 3. Partially imaged large volume ascites. Please see dedicated CT abdomen pelvis 09/23/2017. D/ / Erickson Hoffman MD / Erickson Hoffman MD Interpreting Provider: Erickson Hoffman MD Consult Discharge Plan - Plan Referrals: Jannette Medina, L TACKER [Primary Care Provider] - <Kathryn Carlson - Last Filed: 09/25/17 18:18> Date of Encounter: 09/25/17 Time of Encounter: 18:00 - Time Spent With Patient Total time spent is greater than 50% in coordination of care (as documented) at patient's floor/unit and/or counseling patient: GI History of Present Illness - Data of Consult Requesting Physician: Wilman Hong MD - Consult Narrative History of present illness: Mr. Brunner is a 61 year old male - Constitutional Vitals: Temp Pulse Resp BP Pulse Ox 97.9 F 85 16 117/82 100 09/25/17 15:56 09/25/17 15:56 09/25/17 15:56 09/25/17 15:56 09/25/17 15:56 Results - Labs CBC & Chem 7: 09/25/17 04:30 09/25/17 04:30 Labs: Last Result Calcium 8.7 mg/dL (8.6-10.3) 09/25/17 04:30 Iron 141 mcg/dL (65-175) 09/25/17 04:30 % Saturation 74 % (20-55) H 09/25/17 04:30 Transferrin 136 mg/dL (203-362) L 09/25/17 04:30 Ferritin 960 ng/mL (20-250) H 09/25/17 04:30 Troponin I < 0.03 ng/mL (< 0.04) 09/23/17 13:35 Peritoneal Appearance HAZY (Clear) 09/23/17 15:10 Peritoneal Volume 60.0 mL 09/23/17 15:10 Peritoneal RBC < 0.002 M/mcL (0.000-0.002) 09/23/17 15:10 Periton Tot Nuc Cells 132 TNC/mcL (0-300) 09/23/17 15:10 Periton Band Neuts Test Not Performed 09/23/17 15:10 Periton Lymphocytes % 30.0 % 09/23/17 15:10 Periton Monocytes % 19.0 % 09/23/17 15:10 Periton Other Cells % 41.0 % 09/23/17 15:10 Peritoneal Tot Protein < 3.0 g/dL (No Ref Range) 09/23/17 15:10 Peritoneal Albumin < 1.5 g/dL (No Ref Range) 09/23/17 15:10 Peritoneal LDH 56 Units/L (No Ref Range) 09/23/17 15:10 Peritoneal Glucose 121 mg/dL (No Ref Range) 09/23/17 15:10 Peritoneal Amylase 10 Units/L (No Ref Range) 09/23/17 15:10 Stool Occult Blood Positive (Negative) A 09/24/17 16:45 Entire Visit Hgb 9.9 g/dL (12.9-16.9) L 09/25/17 04:30 Hct 29.5 % (37.5-50.1) L 09/25/17 04:30 PT 14.6 Seconds (9.4-12.1) H 09/23/17 13:35 Ferritin 960 ng/mL (20-250) H 09/25/17 04:30 Total Bilirubin 1.1 mg/dL (0.3-1.0) H 09/23/17 13:35 AST 103 Units/L (13-39) H 09/23/17 13:35 ALT 23 Units/L (7-52) 09/23/17 13:35 Ammonia 66 mcmol/L (16-53) H 09/23/17 21:23 - ABG ABG results: PT/INR, D-dimer PT 14.6 Seconds (9.4-12.1) H 09/23/17 13:35 - Impressions Impressions Liver Biopsy CT 09/25/17 00:00 IMPRESSION: 1. Aborted liver biopsy as discussed above. D/ / Sahil Piper MD / Sahil Piper MD Interpreting Provider: Sahil Piper MD - Attending Attestation I have personally performed a face to face evaluation on this patient. I have reviewed and agree with the care plan. History and Exam by me shows: Patient seen. Patient with the abdominal swelling due to ascites. Had abnormal imaging with cirrhosis and possible masses. Does has elevated ferritin along with iron sats. Recommendation: Patient to get repeat ascitic tap. Currently can not be started on diuretic as his creatinine is still high. Patient will follow with GI as an outpatient meanwhile workup for hemochromatosis is pending. Will need to repeat MRI of the liver in 3 months. Will also be referred to [facility] for possible liver transplant evaluation as out pt
[2017-09-26] MEDS: Octreotide 400 MCG in 0.9 % Sodium Chloride 100 ML IVC SCH ×2 (00:47→15:52)
[2017-09-26] MEDS: Pantoprazole 40 MG VIAL IVP SCH (05:05)
[2017-09-26 05:33] LABS: Basophils # 0.1 K/mcL (0.0-0.2); Basophils % 1.4 %; Eosinophils # 0.6 K/mcL (0.0-0.6); Eosinophils % 8.3 %; Hematocrit 29.1 % (37.5-50.1); Hemoglobin 9.6 g/dL (12.9-16.9); Immature Granulocytes % 0.3 % (0-4); Lymphocytes # 1.2 K/mcL (0.6-4.6); Lymphocytes % 17.9 %; Mean Corpuscular Hemoglobin 34.7 pg (28.0-33.3); Mean Corpuscular Volume 105.1 fL (83.0-100.0); Mean Platelet Volume 10.1 fL (9.4-12.4); Monocytes # 0.5 K/mcL (0.0-1.3); Monocytes % 7.5 %; Neutrophils # 4.3 K/mcL (1.6-8.9); Platelet Count 117 K/mcL (140-400); Red Blood Count 2.77 M/mcL (4.19-5.50); Red Cell Distribution Width 12.8 % (11.5-14.5); Segmented Neutrophils % 64.6 %
[2017-09-26 05:52] LABS: Calcium 8.8 mg/dL (8.6-10.3); Potassium 5.1 mEq/L (3.5-5.1)
[2017-09-26] MEDS: Nicotine 21 MG PATCH.TD24 TD SCH (08:03)
[2017-09-26] MEDS: Insulin LISPRO 300 UNITS/3 ML VIAL SQ SCH ×4 (08:04→23:37)
--- NOTE | 2017-09-26 13:53 | Internal Med Progress Note ---
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 Additional 5 L removed for therapeutic purposes. - Exam Vitals: Temp Pulse Resp BP Pulse Ox 98.4 F 80 18 104/63 97 09/26/17 11:16 09/26/17 11:16 09/26/17 11:16 09/26/17 11:16 09/26/17 11:16 Exam: VSS Gen: Not in any form of distress HEENT: Unremarkable, not pale Chest: No wheezing on exam today, no crackles Heart: S1, S2 only, no m/g/r Abdomen: Soft, not tender Extremities: No pedal edema Neuro: AAOX3. No focal deficits Skin: No rash Psych: Normal affect - Assessment and Plan (1) Liver mass Current Visit: Yes Status: Ruled-out Assessment and Plan: By radiologist, recommend repeat MRI in 3 months. (2) CHETNA (acute kidney injury) Current Visit: Yes Status: Acute Assessment and Plan: Improving Cr 1.52 (2.03 09/24) Continue to monitor renal function Avoid nephrotoxins (3) Acute blood loss anemia Current Visit: Yes Status: Acute Assessment and Plan: Hb 9.3, drop from admitting level of 12 Patient with black stool Hemodynamically stable INR 1.3 on admission Continue to hold ASA s/p EGD with findings noted Hb currently stable Continue PPI and OCtreotide, as well as carafate (4) GI bleed Current Visit: Yes Status: Acute Assessment and Plan: as in anemia GI consulted, appreciate recs (5) Ascites Current Visit: Yes Status: Chronic Assessment and Plan: Total 11.5 L drained in this admission Received albumn 2 days ago after initial drainage of 6.5 L SBP ruled out in work up Prelim culture negative Continue to monitor Continue to Hold lasix/Adactone for now due to CHETNA Recommend routine paracentensis as out-patient Severe portal HTN with gastric and duodenal varices with spont bleeding, continue PPI and Octreotide for now Will benefit from BB, however, blood pressure borderline low Continue to monitor Follow cirrhosis work up, AFP CA 19-9 Recommend follow up with GI upon discharge (6) Cirrhosis Current Visit: Yes Status: Chronic Assessment and Plan: As above With portal HTN Consider propanolol po, blood pressure currently low normal Ammonia level on presentation 66, patient is AAOX3 Likely due to alcoholic cirrhosis and hemochromatosis Continue to monitor EGD noted for spontaneous bleeding due to severe portal HTN (7) Diabetes mellitus with peripheral angiopathy without gangrene Current Visit: Yes Status: Chronic Assessment and Plan: Continue current regimen, FS acceptable (8) Esophageal varices in alcoholic cirrhosis Current Visit: Yes Status: Chronic Assessment and Plan: As in anemia (9) Essential hypertension Current Visit: Yes Status: Chronic Assessment and Plan: Blood pressure currently acceptable, borderline low, continue to monitor Hold meds -Lisinopril, Lasix and Aldactone for now Consider propanolol when blood pressure improves (10) History of alcohol dependence Current Visit: Yes Status: Chronic Assessment and Plan: Patient reports quiting alcohol about a month ago Continue supplements (11) Mixed hyperlipidemia Current Visit: Yes Status: Chronic Assessment and Plan: Continue home meds (12) Tobacco abuse Current Visit: Yes Status: Chronic Assessment and Plan: encourage cessation NRT (13) Cholangiocarcinoma Current Visit: Yes Status: Suspected Assessment and Plan: Per Abdomen MRI 09/17: "1. Cirrhotic liver suspected to be related to hemochromatosis given diffuse iron deposition. There are no findings suggesting iron deposition elsewhere. 2. Multifocal lesions predominantly in the right hemiliver results and relative sparing of iron deposition, the largest measuring approximately 10.2 cm x 10.4 cm x 14.5 cm. The enhancement and location suggest peripheral cholangiocarcinoma. LI-RADS LR-M (probably or definitely malignant but not HCC specific). 3. Large ascites and venous collateral formation suggest a degree of portal hypertension. Additionally, suspected edematous wall thickening involving portions of the stomach, small bowel, colon suggest portal gastropathy, enteropathy, and colopathy, respectively. 4. Suggestion of nodularity in the greater omentum may be related to mesenteric venous collateral formation. However, peritoneal carcinomatosis is not excluded. Of note, no other findings of peritoneal nodularity are seen. 5. Edematous gallbladder wall thickening along the gallbladder fossa is most likely related to adjacent liver disease, hypoproteinemia, or ascites. Cholecystitis is considered unlikely. 6. 2.9 cm x 2.0 cm lesion in the inferior spleen with indeterminate appearance, potentially an infarct. Recommend attention on follow-up imaging" Oncology consulted Liver biopsy scheduled for 09/25 but cancelled due to IR recommending repat MRI in 3 months Follow up as out-patient - Time Spent with Patient Total time spent is greater than 50% in coordination of care (as documented) at patient's floor/unit and/or counseling patient: Plan of Care Discussed with: patient Internal Medicine: Result - Labs CBC & Chem 7: 09/26/17 04:25 09/26/17 04:25 Labs: Short CBC 09/26/17 Range/Units 04:25 WBC 6.7 (4.3-11.1) K/mcL Hgb 9.6 L (12.9-16.9) g/dL Hct 29.1 L (37.5-50.1) % Plt Count 117 L (140-400) K/mcL Neutrophils # 4.3 (1.6-8.9) K/mcL BMP 09/26/17 04:25 Sodium 136 Potassium 5.1 Chloride 113 H Carbon Dioxide 19 L BUN 36 H Creatinine 1.52 H Glucose 173 H Calcium 8.8 Liver Function 09/26/17 Range/Units 08:11 Albumin 2.8 L (3.5-5.7) g/dL - ABG Interpretation ABG results: PT/INR, D-dimer PT 14.6 Seconds (9.4-12.1) H 09/23/17 13:35 - Impressions Impressions Liver Biopsy CT 09/25/17 00:00 IMPRESSION: 1. Aborted liver biopsy as discussed above. D/ / Sahil Piper MD / Sahil Piper MD Interpreting Provider: Sahil Piper MD - VTE Documentation of Mechanical Device: Intermittent pneumatic compression device Consult Discharge Plan - Plan Referrals: Jannette Medina, [employer]ICATIONS MAINTAINER [Primary Care Provider] - (4) GI bleed Qualifiers: GI bleed type/associated pathology: melena Qualified Code(s): K92.1 - Melena (5) Ascites Qualifiers: Ascites type: due to alcoholic cirrhosis Qualified Code(s): K70.31 - Alcoholic cirrhosis of liver with ascites (6) Cirrhosis Qualifiers: Hepatic cirrhosis type: alcoholic cirrhosis Ascites presence: with ascites Qualified Code(s): K70.31 - Alcoholic cirrhosis of liver with ascites (7) Diabetes mellitus with peripheral angiopathy without gangrene Qualifiers: Diabetes mellitus type: type 2 Diabetes mellitus jail insulin use: without local intermodal truck driver use Qualified Code(s): E11.51 - Type 2 diabetes mellitus with diabetic peripheral angiopathy without gangrene
[2017-09-27] MEDS: Octreotide 400 MCG in 0.9 % Sodium Chloride 100 ML IVC SCH (04:37)
[2017-09-27 04:47] LABS: Basophils # 0.1 K/mcL (0.0-0.2); Basophils % 1.2 %; Eosinophils # 0.5 K/mcL (0.0-0.6); Hemoglobin 9.8 g/dL (12.9-16.9); Immature Granulocytes % 0.3 % (0-4); Lymphocytes # 1.3 K/mcL (0.6-4.6); Lymphocytes % 19.7 %; Mean Corpuscular HGB Conc 32.7 g/dL (31.6-35.5); Mean Corpuscular Volume 104.2 fL (83.0-100.0); Mean Platelet Volume 9.9 fL (9.4-12.4); Monocytes # 0.4 K/mcL (0.0-1.3); Monocytes % 6.5 %; Neutrophils # 4.3 K/mcL (1.6-8.9); Platelet Count 114 K/mcL (140-400); Red Blood Count 2.88 M/mcL (4.19-5.50); Red Cell Distribution Width 12.7 % (11.5-14.5); Segmented Neutrophils % 64.3 %
[2017-09-27 05:05] LABS: BUN/Creatinine Ratio 20 (6-26); Blood Urea Nitrogen 27 mg/dL (8-23); Calcium 8.5 mg/dL (8.6-10.3); Carbon Dioxide 18 mEq/L (23-29); Chloride 112 mEq/L (98-107); Glucose 152 mg/dL (70-105); Osmolality,Calculated 286 (280-300); Potassium 4.6 mEq/L (3.5-5.1); Sodium 134 mEq/L (136-145); eGFR For Non-African Americans 55 (> 60)
[2017-09-27] MEDS: Insulin LISPRO 300 UNITS/3 ML VIAL SQ SCH (08:07)
[2017-09-27] MEDS: Nicotine 21 MG PATCH.TD24 TD SCH (08:07)
--- NOTE | 2017-09-27 10:52 | Oncology Inp Progress Note ---
Date of Encounter: 09/27/17 Time of Encounter: 10:47 (1) Liver mass Current Visit: Yes Status: Suspected Assessment and plan: At tumor board patient's case was discussed. There is still suspicion for liver mass. Plan for outpatient biopsy next Saturday. follow up with oncology one week after biopsy. Oncology: Subj Interval history: Patient up in chair. Has no complaints this morning. At tumor board his case was discussed and their is still a suspicion for mass. Talked to IR and tentative plan is outpatient biopsy next saturday. - Constitutional Vitals: Vital Signs Temp Pulse Resp BP Pulse Ox 09/27/17 08:04 98.1 F 117/77 09/27/17 06:41 99.1 F 75 18 97/53 96 09/27/17 04:09 98.1 F 86 16 137/69 98 09/27/17 00:23 98.7 F 82 16 118/62 99 09/26/17 18:29 97.8 F 76 16 115/65 100 09/26/17 15:55 98.2 F 76 19 117/61 99 09/26/17 11:16 98.4 F 80 18 104/63 97 Intake and Output 09/26/17 09/27/17 09/27/17 23:59 07:59 15:59 Intake Total 610 / 610 104 / 104 120 / 120 Output Total 300 / 300 250 / 250 Balance 310 / 310 -146 / -146 120 / 120 Intake: IV Fluids 104 / 104 SandoSTATIN 400 MCG In 0.9 % 104 / 104 Sodium Chloride 100 ML @ 25 MCG /HR 6.5 mls/hr IVC .Q16H TEJAS Rx #:[id number] Oral 610 / 610 120 / 120 Output: Urine 300 / 300 250 / 250 Other: Meal Dinner Breakfast Percent of Meal Consumed 60% 25% # Voids 1 1 Weight 73.2 kg Blood Glucose* 257 161 Patient Weight 09/27/17 23:59 Weight 73.2 kg - Additional findings Additional findings: General: Thin, male pleasant, without distress, Heart: Regular rate and rhythm with no murmur Lungs: Clear to auscultation bilaterally Abdomen: Soft, nontender, distended, distant bowel sounds Skin: warm and dry, absent rash Extremities: Absent pedal edema, Neuro: Alert oriented 3 Vascular: Pedal and radial pulses 2 out of 4 Oncology: Obj Data - Labs CBC & Chem 7: 09/27/17 04:01 09/27/17 04:01 Labs: Laboratory Results - last 24 hr 09/26/17 09/26/17 09/26/17 06:56 11:14 15:53 WBC RBC Hgb Hct MCV MCH MCHC RDW Plt Count MPV Immature Gran % Seg Neutrophils % Lymphocytes % Monocytes % Eosinophils % Basophils % Neutrophils # Lymphocytes # Monocytes # Eosinophils # Basophils # Sodium Potassium Chloride Carbon Dioxide BUN Creatinine Est GFR ( Amer) Est GFR (Non-Af Amer) BUN/Creatinine Ratio Glucose POC Glucose 158 H 155 H 141 H Calculated Osmolality Calcium 09/26/17 09/27/17 09/27/17 21:03 04:01 04:01 WBC 6.8 RBC 2.88 L Hgb 9.8 L Hct 30.0 L MCV 104.2 H MCH 34.0 H MCHC 32.7 RDW 12.7 Plt Count 114 L MPV 9.9 Immature Gran % 0.3 Seg Neutrophils % 64.3 Lymphocytes % 19.7 Monocytes % 6.5 Eosinophils % 8.0 Basophils % 1.2 Neutrophils # 4.3 Lymphocytes # 1.3 Monocytes # 0.4 Eosinophils # 0.5 Basophils # 0.1 Sodium 134 L Potassium 4.6 Chloride 112 H Carbon Dioxide 18 L BUN 27 H Creatinine 1.32 H Est GFR ( Amer) > 60 Est GFR (Non-Af Amer) 55 L BUN/Creatinine Ratio 20 Glucose 152 H POC Glucose 257 H Calculated Osmolality 286 Calcium 8.5 L 09/27/17 06:39 WBC RBC Hgb Hct MCV MCH MCHC RDW Plt Count MPV Immature Gran % Seg Neutrophils % Lymphocytes % Monocytes % Eosinophils % Basophils % Neutrophils # Lymphocytes # Monocytes # Eosinophils # Basophils # Sodium Potassium Chloride Carbon Dioxide BUN Creatinine Est GFR ( Amer) Est GFR (Non-Af Amer) BUN/Creatinine Ratio Glucose POC Glucose 161 H Calculated Osmolality Calcium - ABG Interpretation ABG results: PT/INR, D-dimer PT 14.6 Seconds (9.4-12.1) H 09/23/17 13:35 Consult Discharge Plan - Plan Instructions: Gastrointestinal Bleeding (DC), Acute Kidney Injury (DC), Anemia (GEN) Referrals: Jannette Medina, TRISTAN [Primary Care Provider] -
[2017-09-27 11:15] VITALS: BP 102/41
--- NOTE | 2017-09-27 11:26 | Discharge Summary ---
- NOTES TO OUTPATIENT PROVIDER Notes to Outpatient Provider: Patient was placed on observation secondary to abdominal pain due to massive ascites, CHETNA and Acute blood loss anemia secondary to GIB. 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 He is s/p paracentensis with total 11.5 L of fluid removed. He received albumin and gentle hydration. Creatinine is trending towards baseline. 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 Liver biopsy was scheduled in -patient but cancelled and rescheduled as out-patient for 10/04. Hb has remained stable at 9. He is discharged on PPI BID, carafate and propanlol. Lasix and Spironolactone have been held and may be resumed on discretion of PCP. Follow up scheduled with GI for 10/01 and IR for 10/04. Plan of care discussed, verbalized understanding Orders not resulted at time of discharge: Pending orders 09/25/17 04:30 AFP Tumor Marker Non- AM 0400 Hemochromatosis 3 Mutatations Routine 09/25/17 13:12 Cancer Antigen-GI (CA 19-9) Routine 09/26/17 07:46 IR paracentesis ultrasound [IR] Routine 09/26/17 08:11 AFP Tumor Marker Non- Stat Date of Encounter: 09/27/17 Time of Encounter: 11:26 - Discharge Diagnosis (1) Liver mass Priority: Primary Status: Suspected (2) CHETNA (acute kidney injury) Priority: Primary Status: Resolved (3) Acute blood loss anemia Priority: Primary Status: Acute (4) GI bleed Priority: Primary Status: Acute Qualifiers: GI bleed type/associated pathology: melena Qualified Code(s): K92.1 - Melena (5) Ascites Priority: Secondary Status: Chronic Qualifiers: Ascites type: due to alcoholic cirrhosis Qualified Code(s): K70.31 - Alcoholic cirrhosis of liver with ascites (6) Cirrhosis Priority: Secondary Status: Chronic Qualifiers: Hepatic cirrhosis type: alcoholic cirrhosis Ascites presence: with ascites Qualified Code(s): K70.31 - Alcoholic cirrhosis of liver with ascites (7) Diabetes mellitus with peripheral angiopathy without gangrene Priority: Secondary Status: Chronic Qualifiers: Diabetes mellitus type: type 2 Diabetes mellitus assisted insulin use: without traffic controller cable use Qualified Code(s): E11.51 - Type 2 diabetes mellitus with diabetic peripheral angiopathy without gangrene (8) Esophageal varices in alcoholic cirrhosis Priority: Primary Status: Chronic (9) Essential hypertension Priority: Secondary Status: Chronic (10) History of alcohol dependence Priority: Secondary Status: Chronic (11) Mixed hyperlipidemia Priority: Secondary Status: Chronic (12) Tobacco abuse Priority: Primary Status: Chronic (13) Cholangiocarcinoma Priority: Primary Status: Suspected Hospital course: Mr. Brunner is a 61 year old male Patient was placed on observation secondary to abdominal pain due to massive ascites, CHETNA and Acute blood loss anemia secondary to GIB. 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 He is s/p paracentensis with total 11.5 L of fluid removed. He received albumin and gentle hydration. Creatinine is trending towards baseline. EGD showed severe portal gastropathy and varices with spontaneous bleeding- cauterized. Liver biopsy was scheduled in-patient but cancelled and rescheduled as out- patient for 10/04. Hb has remained stable at 9 He is discharged on PPI BID, carafate and propanlol Lasix and Spironolactone have been held and may be resumed on discretion of PCP Follow up scheduled with GI for 10/01 and IR for 10/04 Plan of care discussed, verbalized understanding Discharge discussed with: patient, family, nurse, social work, case management, nurse consultant Time spent discussing smoking cessation with patient: 3 to 10 minutes - Time Spent with Patient Total time spent providing and/or coordinating discharge services: Greater than 30 minutes - Discharge Medications Prescriptions: Omeprazole [PriLOSEC] 40 mg PO BIDAC #60 capsule. Propranolol [Inderal] 10 mg PO HS #30 tablet Sucralfate [Carafate] 1 gm PO TIDAC 10 Days #300 udc Home Medications: Cyclobenzaprine HCl 5 mg PO BID PRN 08/26/17 [History] Glimepiride [Amaryl] 2 mg PO DAILY 08/26/17 [History] Pioglitazone [Actos] 45 mg PO DAILY 08/26/17 [History] Citalopram Hydrobromide [Citalopram HBr] 20 mg PO DAILY 09/23/17 [History] Omeprazole [PriLOSEC] 40 mg PO BIDAC #60 capsule. 09/27/17 [Rx] Propranolol [Inderal] 10 mg PO HS #30 tablet 09/27/17 [Rx] Sucralfate [Carafate] 1 gm PO TIDAC 10 Days #300 udc 09/27/17 [Rx] Allergies/Adverse Reactions: 3 Allergy/AdvReac Type Severity Reaction Status Date / Time shellfish derived Allergy Anaphylaxis Verified 11/08/15 11:29 budesonide [From Symbicort] AdvReac ELEVATED BP Verified 11/08/15 11:29 cilostazol AdvReac SWEATS Verified 11/08/15 11:29 Formoterol [From Symbicort] AdvReac ELEVATED BP Verified 11/08/15 11:29 gabapentin [From Neurontin] AdvReac Confusion Verified 11/08/15 11:29 naproxen [From Naprosyn] AdvReac Nausea Verified 11/08/15 11:29 tramadol AdvReac Nausea Verified 11/08/15 11:29 Date of admission: 09/23/17 16:15 Primary care physician: Jannette Medina, Consults: 09/23/17 18:54 Consult to Oncology [CONS] Routine Consulting Provider: [facility] Reason for Consult: Liver mass Time Notified: 18:55 Call Completed: No 09/24/17 12:12 Consult to Gastroenterology [CONS] Stat Consulting Provider: Gastroenterology Subha Reason for Consult: Suspect GI bleed Call Completed: Yes 09/24/17 12:47 Consult to Interventional Radiology [CONS] Routine Consulting Provider: Radiology Interventional [facility] Reason for Consult: liver biospy, liver mass Call Completed: Yes Discharging clinician: Wilman Hong Anticipated date of discharge: 09/27/17 - Constitutional Vitals: Temp Pulse Resp BP Pulse Ox 98.1 F 74 18 102/41 100 09/27/17 11:15 09/27/17 11:15 09/27/17 11:15 09/27/17 11:15 09/27/17 11:15 General appearance: Present: cooperative, A&O X 3, no acute distress, answers questions appropriately - Head Head exam: Present: atraumatic, normocephalic - Eye Eye exam: Present: PERRL, conjuntiva pink, sclera anicteric Pupils: Present: PERRL - Neck Neck exam general surgery: Present: supple, trachea midline. Absent: lymphadenopathy - Respiratory Respiratory exam: Present: CTAB. Absent: accessory muscle use, rales, rhonchi, wheezes - Cardiovascular Cardiovascular exam: Present: RRR, +S1, +S2. Absent: diastolic murmur, gallop, rubs, systolic murmur - GI/Abdominal GI/Abdominal exam: Present: normal bowel sounds, soft, no peritoneal signs. Absent: distended, tenderness - Extremities Exam Extremities exam: Present: warm, radial pulses palpable and symmetrical. Absent : calf tenderness, cyanotic, pedal edema - Neurological Exam Neurological exam: Present: CN II-XII intact, oriented X3, no focal deficits. Absent: pronater drift, facial droop, speech deficit - Skin Skin exam: Present: dry, intact - Patient Status Disposition: Home, Self-Care Condition: Good Functional capacity at discharge: independent ambulation Overall status at discharge: patient is progressing back to baseline - Ambulatory Orders Ambulatory Orders: CT biopsy liver [CT] Time Frame: 10/04/17, Facility: [facility], Location: Interventional Radiology IR paracentesis ultrasound [IR] Time Frame: 10/04/17, Facility: [facility], Location: Interventional Radiology - Discharge Instructions Instructions: Gastrointestinal Bleeding (DC), Acute Kidney Injury (DC), Anemia (GEN) Follow Up With: Jannette Medina CNP [Primary Care Provider] - 10/04/17 1:00 pm (Please follow as schedule....) - Diet and Activity Activity: resume usual activities as tolerated Diet: diabetic diet, low salt diet - VTE Documentation of Mechanical Device: Intermittent pneumatic compression device
[2017-09-29 19:46] LABS: C282Y Hemochromatosis Mutation HOMOZYGOUS; H63D Hemochromatosis Mutation NEGATIVE; HFE Specimen Type WHOLE BLOOD; S65C Hemochromatosis Mutation NEGATIVE
== END 2017-09-27 12:00 | disposition home or self-care (01) ==
LOC: EMEROO 13:17 → 2ANU 13:17 → SUATTDRO 16:15 → 2ANU 16:54
PROVIDERS: ADMIT Internal Medicine; ATTEND Internal Medicine

== ENCOUNTER 2017-10-07 11:01 | Observation (INO) ==
--- NOTE | 2017-10-07 11:43 | Emergency Department Note ---
Disposition Clinical Impression: Ascites, Cirrhosis Disposition: Admitted As Inpatient Condition: Good General Adult HPI - General Chief complaint: ED Shortness of Breath/Dyspnea Stated complaint: "sob,fluid built up" Time Seen by Provider: 10/07/17 11:16 Source: patient Limitations: no limitations - History of Present Illness Pain Scale: 5 - Related Data Home Medications Medication Instructions Recorded Confirmed Cyclobenzaprine HCl 5 mg PO BID PRN 08/26/17 10/07/17 Glimepiride [Amaryl] 2 mg PO DAILY 08/26/17 10/07/17 Pioglitazone [Actos] 45 mg PO DAILY 08/26/17 10/07/17 Citalopram Hydrobromide 20 mg PO DAILY 09/23/17 10/07/17 [Citalopram HBr] Previous Rx's Medication Instructions Recorded Omeprazole [PriLOSEC] 40 mg PO BIDAC #60 capsule. 09/27/17 Propranolol [Inderal] 10 mg PO HS #30 tablet 09/27/17 Allergies Allergy/AdvReac Type Severity Reaction Status Date / Time shellfish derived Allergy Anaphylaxis Verified 11/08/15 11:29 budesonide [From Symbicort] AdvReac ELEVATED BP Verified 11/08/15 11:29 cilostazol AdvReac SWEATS Verified 11/08/15 11:29 Formoterol [From Symbicort] AdvReac ELEVATED BP Verified 11/08/15 11:29 gabapentin [From Neurontin] AdvReac Confusion Verified 11/08/15 11:29 naproxen [From Naprosyn] AdvReac Nausea Verified 11/08/15 11:29 tramadol AdvReac Nausea Verified 11/08/15 11:29 Past Medical History - Past Medical History Medical history: Reports: cancer, COPD, diabetes, hypertension, other Surgical history: Reports: herniorrhaphy, other Psychiatric history: Reports: no psych history - Social History Smoking Status: Current every day smoker Smokeless Tobacco Status: No Alcohol use: Reports: none Drug use: Reports: none Physical Exam - General Limitations: no limitations General appearance: alert, in no apparent distress Course Vital Signs Temperature 98.1 F 10/07/17 11:10 Pulse Rate 67 10/07/17 11:10 Respiratory Rate 16 10/07/17 11:10 Blood Pressure 117/62 10/07/17 11:10 O2 Sat by Pulse Oximetry 100 10/07/17 11:10 Temperature 98.1 F 10/07/17 11:19 Pulse Rate 67 10/07/17 11:19 Respiratory Rate 15 10/07/17 14:40 Blood Pressure 136/71 10/07/17 14:40 O2 Sat by Pulse Oximetry 100 10/07/17 11:19 Oxygen Delivery Oxygen Delivery Room Air Medical Decision Making - Lab Data Result diagrams: 10/07/17 11:34 10/07/17 11:34 Lab Results 10/07/17 10/07/17 10/07/17 Range/Units 11:34 11:34 11:34 WBC 7.2 (4.3-11.1) K/mcL RBC 3.41 L (4.19-5.50) M/mcL Hgb 11.9 L (12.9-16.9) g/dL Hct 35.0 L (37.5-50.1) % MCV 102.6 H (83.0-100.0) fL MCH 34.9 H (28.0-33.3) pg MCHC 34.0 (31.6-35.5) g/dL RDW 13.8 (11.5-14.5) % Plt Count 126 L (140-400) K/mcL MPV 9.3 L (9.4-12.4) fL Immature Gran % 0.3 (0-4) % Seg Neutrophils % 65.9 % Lymphocytes % 18.6 % Monocytes % 9.3 % Eosinophils % 5.2 % Basophils % 0.7 % Neutrophils # 4.8 (1.6-8.9) K/mcL Lymphocytes # 1.4 (0.6-4.6) K/mcL Monocytes # 0.7 (0.0-1.3) K/mcL Eosinophils # 0.4 (0.0-0.6) K/mcL Basophils # 0.1 (0.0-0.2) K/mcL PT 14.9 H (9.4-12.1) Seconds INR 1.3 APTT 38.4 H (26.0-36.0) Seconds Sodium 133 L (136-145) mEq/L Potassium 4.1 (3.5-5.1) mEq/L Chloride 105 (98-107) mEq/L Carbon Dioxide 22 L (23-29) mEq/L BUN 24 H (8-23) mg/dL Creatinine 1.39 H (0.70-1.30) mg/dL Est GFR ( Amer) > 60 (> 60) Est GFR (Non-Af Amer) 52 L (> 60) BUN/Creatinine Ratio 17 (6-26) Glucose 106 H (70-105) mg/dL Calculated Osmolality 280 (280-300) Calcium 9.0 (8.6-10.3) mg/dL Total Bilirubin 1.5 H (0.3-1.0) mg/dL Direct Bilirubin 0.6 H (0.0-0.2) mg/dL Indirect Bilirubin 0.9 (0.0-1.2) mg/dL AST 101 H (13-39) Units/L ALT 33 (7-52) Units/L Alkaline Phosphatase 95 (34-104) Units/L Troponin I < 0.03 (< 0.04) ng/mL Serum Total Protein 7.3 (6.4-8.9) g/dL Albumin 2.7 L (3.5-5.7) g/dL Globulin 4.6 H (2.4-3.5) g/dL Albumin/Globulin Ratio 0.6 L (1.1-2.2) Attestation Statement - Attestation Attestation: I examined this patient and my medical decision-making was reviewed with the Resident Physician. I agree with the documented findings, disposition and treatment plan as described except to the extent set forth below. Patient presents to the ED with chief complaint of swelling. Patient advised abdominal swelling has been worsening over the past few days. He states now he short of breath with exertion. Patient recently seen and admitted for the same. Diagnosed with cirrhosis. Had a recent liver biopsy for which she does not yet have the result. He is under the care of Dr. Mayer. On examination he is awake and alert in no acute distress. He is in no respiratory distress. He is breathing comfortably. Decreased air exchange in the right. Abdomen mildly distended but soft. Plan. Cardiac workup. Patient will likely need paracentesis. Patient and admitted for paracentesis.
--- NOTE | 2017-10-07 11:45 | Emergency Department Note ---
Disposition Clinical Impression: Ascites Qualifiers: Ascites type: other type Qualified Code(s): R18.8 - Other ascites Cirrhosis Qualifiers: Hepatic cirrhosis type: other cirrhosis Qualified Code(s): K74.69 - Other cirrhosis of liver Disposition: Admitted As Inpatient Condition: Good Referrals: Jannette Medina CNP [Primary Care Provider] - Forms: ED Satisfaction Letter Time of Disposition: 13:53 SOB HPI - General Chief Complaint: ED Shortness of Breath/Dyspnea Stated Complaint: "sob,fluid built up" Time Seen by Provider: 10/07/17 11:16 Source: patient Mode of arrival: ambulatory Limitations: no limitations Nursing Notes Reviewed: Yes Vital Signs Reviewed: Yes - History of Present Illness 17-year-old male with history of cirrhosis of unknown etiology arrives to the emergency department complaining of shortness of breath and abdominal swelling. The patient states that he recently had a paracentesis multiple times with a history of large amount of fluid. The patient states he is experiencing some shortness of breath. The patient denies any other complaints other than some shortness of breath and dyspnea on exertion. The patient does have some abdominal swelling and distention that he states was similar to when he previously had his paracentesis. The patient denies any fevers, chills, worsening abdominal pain, chest pain. The patient is resting comfortably at this time. He is alert and oriented answering all questions. The patient is nontoxic-appearing on evaluation. He demonstrates no tachycardia, no hypotension is afebrile. Patient denies any other complaints. - Related Data Home Medications Medication Instructions Recorded Confirmed Cyclobenzaprine HCl 5 mg PO BID PRN 08/26/17 09/23/17 Glimepiride [Amaryl] 2 mg PO DAILY 08/26/17 09/23/17 Pioglitazone [Actos] 45 mg PO DAILY 08/26/17 09/23/17 Citalopram Hydrobromide 20 mg PO DAILY 09/23/17 09/23/17 [Citalopram HBr] Previous Rx's Medication Instructions Recorded Omeprazole [PriLOSEC] 40 mg PO BIDAC #60 capsule. 09/27/17 Propranolol [Inderal] 10 mg PO HS #30 tablet 09/27/17 Sucralfate [Carafate] 1 gm PO TIDAC 10 Days #300 udc 09/27/17 Allergies Allergy/AdvReac Type Severity Reaction Status Date / Time shellfish derived Allergy Anaphylaxis Verified 11/08/15 11:29 budesonide [From Symbicort] AdvReac ELEVATED BP Verified 11/08/15 11:29 cilostazol AdvReac SWEATS Verified 11/08/15 11:29 Formoterol [From Symbicort] AdvReac ELEVATED BP Verified 11/08/15 11:29 gabapentin [From Neurontin] AdvReac Confusion Verified 11/08/15 11:29 naproxen [From Naprosyn] AdvReac Nausea Verified 11/08/15 11:29 tramadol AdvReac Nausea Verified 11/08/15 11:29 All systems ED: reviewed and negative except as stated. Constitutional: Denies: fever, chills, weakness Eyes: Denies: eye discharge ENT ED: Denies: dysphagia Cardiovascular: Reports: dyspnea on exertion. Denies: chest pain, edema Respiratory: Reports: dyspnea. Denies: cough, sputum production Gastrointestinal: Denies: abdominal pain, nausea, vomiting, diarrhea, constipation Musculoskeletal: Denies: back pain, neck pain, arthralgia, myalgia Integumentary: Denies: rash, abrasion, lesions Neurological: Denies: headache, weakness, numbness, paresthesias, confusion, abnormal gait, vertigo Past Medical History - Past Medical History Attestation: Yes The following information was validated with the patient. Source: patient, old records reviewed Medical history: Reports: cancer, cirrhosis, COPD, diabetes, hypertension, other Surgical history: Reports: herniorrhaphy, other Psychiatric history: Reports: no psych history - Social History Smoking Status: Current every day smoker Smokeless Tobacco Status: No Alcohol use: Reports: none Drug use: Reports: none Physical Exam - General Limitations: no limitations General appearance: alert, in no apparent distress - Head Head exam: atraumatic, normocephalic, normal inspection - Eye Eye exam: Present: normal appearance, PERRL, EOMI - ENT ENT exam: normal exam, normal oropharynx, mucous membranes moist - Neck Neck exam: Present: normal inspection, full ROM, trachea midline - Chest Chest inspection: Present: normal inspection, symmetric chest wall rise - Respiratory Respiratory exam: Present: other (Patient does have coarse breath sounds bilaterally with decrease lung auscultation to right side.). Absent: respiratory distress - Cardiovascular Cardiovascular exam: Present: regular rate - Abdominal Exam Abdominal exam: Present: soft, Non-Tender, distention. Absent: tenderness, guarding, rebound, rigidity - Extremities Exam Extremities exam: Present: normal inspection, full ROM. Absent: tenderness, pedal edema - Neurological Exam Neurological exam: Present: alert, oriented X3 - Skin Skin exam: Present: warm, dry, intact, normal color Course Vital Signs Temperature 98.1 F 10/07/17 11:10 Pulse Rate 67 10/07/17 11:10 Respiratory Rate 16 10/07/17 11:10 Blood Pressure 117/62 10/07/17 11:10 O2 Sat by Pulse Oximetry 100 10/07/17 11:10 Temperature 98.1 F 10/07/17 11:19 Pulse Rate 67 10/07/17 11:19 Respiratory Rate 17 10/07/17 11:19 Blood Pressure 133/68 10/07/17 11:19 O2 Sat by Pulse Oximetry 100 10/07/17 11:19 Oxygen Delivery Oxygen Delivery Room Air Shortness of Breath/Dyspnea - [facility] Narrative Medical decision making narrative: Patient's workup in the emergency department demonstrate findings consistent with ascites. The patient needs a paracentesis. We will admit the patient to the hospital to facilitate the paracentesis. Patient was made aware and agrees to plan. Patient's chest x-ray is clear. There are no concerns for SBP here in the emergency department. The patient maintained afebrile and is not complaining of severe abdominal pain. Patient denies any other complaints. Patient accepted by Dr. Rinaldi. - Lab Data Lab results reviewed: Yes I reviewed the patient's lab results. Result diagrams: 10/07/17 11:34 10/07/17 11:34 Lab Results 10/07/17 10/07/17 10/07/17 Range/Units 11:34 11:34 11:34 WBC 7.2 (4.3-11.1) K/mcL RBC 3.41 L (4.19-5.50) M/mcL Hgb 11.9 L (12.9-16.9) g/dL Hct 35.0 L (37.5-50.1) % MCV 102.6 H (83.0-100.0) fL MCH 34.9 H (28.0-33.3) pg MCHC 34.0 (31.6-35.5) g/dL RDW 13.8 (11.5-14.5) % Plt Count 126 L (140-400) K/mcL MPV 9.3 L (9.4-12.4) fL Immature Gran % 0.3 (0-4) % Seg Neutrophils % 65.9 % Lymphocytes % 18.6 % Monocytes % 9.3 % Eosinophils % 5.2 % Basophils % 0.7 % Neutrophils # 4.8 (1.6-8.9) K/mcL Lymphocytes # 1.4 (0.6-4.6) K/mcL Monocytes # 0.7 (0.0-1.3) K/mcL Eosinophils # 0.4 (0.0-0.6) K/mcL Basophils # 0.1 (0.0-0.2) K/mcL PT 14.9 H (9.4-12.1) Seconds INR 1.3 APTT 38.4 H (26.0-36.0) Seconds Sodium 133 L (136-145) mEq/L Potassium 4.1 (3.5-5.1) mEq/L Chloride 105 (98-107) mEq/L Carbon Dioxide 22 L (23-29) mEq/L BUN 24 H (8-23) mg/dL Creatinine 1.39 H (0.70-1.30) mg/dL Est GFR ( Amer) > 60 (> 60) Est GFR (Non-Af Amer) 52 L (> 60) BUN/Creatinine Ratio 17 (6-26) Glucose 106 H (70-105) mg/dL Calculated Osmolality 280 (280-300) Calcium 9.0 (8.6-10.3) mg/dL Total Bilirubin 1.5 H (0.3-1.0) mg/dL Direct Bilirubin 0.6 H (0.0-0.2) mg/dL Indirect Bilirubin 0.9 (0.0-1.2) mg/dL AST 101 H (13-39) Units/L ALT 33 (7-52) Units/L Alkaline Phosphatase 95 (34-104) Units/L Troponin I < 0.03 (< 0.04) ng/mL Serum Total Protein 7.3 (6.4-8.9) g/dL Albumin 2.7 L (3.5-5.7) g/dL Globulin 4.6 H (2.4-3.5) g/dL Albumin/Globulin Ratio 0.6 L (1.1-2.2) - Radiology Data Radiology results reviewed: Yes I reviewed the patient's radiology results. Chest X-Ray 10/07/17 11:25 IMPRESSION: 1. No active pulmonary disease. D/ / Sahil Piper MD / Sahil Piper MD Interpreting Provider: Sahil Piper MD - EKG Data EKG attestation: Yes I reviewed and interpreted this EKG. EKG results narrative: Heart rate 62 bpm. Normal sinus rhythm. No ST elevation or ST depression noted.
[2017-10-07 12:03] LABS: Basophils # 0.1 K/mcL (0.0-0.2); Basophils % 0.7 %; Eosinophils # 0.4 K/mcL (0.0-0.6); Eosinophils % 5.2 %; Hemoglobin 11.9 g/dL (12.9-16.9); Immature Granulocytes % 0.3 % (0-4); Lymphocytes # 1.4 K/mcL (0.6-4.6); Lymphocytes % 18.6 %; Mean Corpuscular Hemoglobin 34.9 pg (28.0-33.3); Mean Corpuscular Volume 102.6 fL (83.0-100.0); Mean Platelet Volume 9.3 fL (9.4-12.4); Monocytes # 0.7 K/mcL (0.0-1.3); Monocytes % 9.3 %; Neutrophils # 4.8 K/mcL (1.6-8.9); Platelet Count 126 K/mcL (140-400); Red Blood Count 3.41 M/mcL (4.19-5.50); Red Cell Distribution Width 13.8 % (11.5-14.5); Segmented Neutrophils % 65.9 %
[2017-10-07 12:09] LABS: INR 1.3; Prothrombin Time 14.9 Seconds (9.4-12.1)
[2017-10-07 12:11] LABS: Activated Partial Thrombo Time 38.4 Seconds (26.0-36.0)
[2017-10-07 12:24] LABS: Troponin I < 0.03 ng/mL (< 0.04)
[2017-10-07 12:48] LABS: Alanine Aminotransferase 33 Units/L (7-52); Albumin 2.7 g/dL (3.5-5.7); Albumin/Globulin Ratio 0.6 (1.1-2.2); Alkaline Phosphatase 95 Units/L (34-104); Aspartate Amino Transferase 101 Units/L (13-39); BUN/Creatinine Ratio 17 (6-26); Bilirubin,Direct 0.6 mg/dL (0.0-0.2); Bilirubin,Indirect 0.9 mg/dL (0.0-1.2); Bilirubin,Total 1.5 mg/dL (0.3-1.0); Blood Urea Nitrogen 24 mg/dL (8-23); Carbon Dioxide 22 mEq/L (23-29); Chloride 105 mEq/L (98-107); Globulin 4.6 g/dL (2.4-3.5); Glucose 106 mg/dL (70-105); Osmolality,Calculated 280 (280-300); Potassium 4.1 mEq/L (3.5-5.1); Sodium 133 mEq/L (136-145); Total Protein 7.3 g/dL (6.4-8.9); eGFR For Non-African Americans 52 (> 60)
--- NOTE | 2017-10-07 14:30 | Internal Med History&Physical ---
Date of Encounter: 10/07/17 Time of Encounter: 14:29 Internal Medicine - H&P: HPI Chief complaint: Abdominal distention, and dyspnea Admitted From: Home Plans for Post Hospital Care: Home History of present illness: Mr. Brunner is a 61 year old male with history of BPH, DM, ascites, esophageal varices and tobacco abuse. Patient admitted with signs and symptoms of shortness of breath and abdominal bloating. O2 saturation is 95% on admission. The patient is currently without pain, he is bloated and states he feels sob at times as a result of that. IR was called by ED and will have paracentesis today. Will add Aldactone to treatment plan to help prevent fluid retention. Patient family member indicated a desire to set up outpatient scheduled paracentesis. Family noted some occasional disorientation while at home. The patient was slightly confused when answering some questions. Will get ammonia level. Patient has had elevated ammonia levels in the past. Patient indicated that he had a liver biopsy on Saturday. Past Med Surg Social Fam HX - Past Medical History Medical history: cancer, cirrhosis, COPD, diabetes, hypertension, other Additional medical history: DDD/OA. DM - CONTROLLED. HERNIA. 6-8 BEERS DAILY Psychiatric history: no psych history - Past Surgical History Surgical History: herniorrhaphy, other Additional surgical history: HERNIA REPAIR 2003. 11/08/15 L ENDARTERECTOMY/ POSSIBLE ILIAC STENT AND FEM TO FEM BYPASS @[place] - Social History Smoking Status: Current every day smoker Smokeless Tobacco Status: No Alcohol use: none Drug use: none - Family History Mother Hx Family Cardiac Disorders: Yes Hx Family Respiratory Disorders: No Hx Family Cancer: No Hx Family GI Disorders: No Hx Family Endocrine Disorder: Yes (dm) Hx Family Neuromuscular Disorders: No Hx Family Neurologic Disorders: No Hx Family HEENT Disorders: No Hx Family Autoimmune Disorders: No Internal Medicine - H&P: Meds Cyclobenzaprine HCl 5 mg PO BID PRN 08/26/17 [History] Glimepiride [Amaryl] 2 mg PO DAILY 08/26/17 [History] Pioglitazone [Actos] 45 mg PO DAILY 08/26/17 [History] Citalopram Hydrobromide [Citalopram HBr] 20 mg PO DAILY 09/23/17 [History] Omeprazole [PriLOSEC] 40 mg PO BIDAC #60 capsule. 09/27/17 [Rx] Propranolol [Inderal] 10 mg PO HS #30 tablet 09/27/17 [Rx] 3 Allergy/AdvReac Type Severity Reaction Status Date / Time shellfish derived Allergy Anaphylaxis Verified 11/08/15 11:29 budesonide [From Symbicort] AdvReac ELEVATED BP Verified 11/08/15 11:29 cilostazol AdvReac SWEATS Verified 11/08/15 11:29 Formoterol [From Symbicort] AdvReac ELEVATED BP Verified 11/08/15 11:29 gabapentin [From Neurontin] AdvReac Confusion Verified 11/08/15 11:29 naproxen [From Naprosyn] AdvReac Nausea Verified 11/08/15 11:29 tramadol AdvReac Nausea Verified 11/08/15 11:29 All Systems PM: A 10-system review of systems was performed and is negative for pertinent findings except as documented above in the HPI. - Constitutional Constitutional: no chills, no fever(s), no night sweats - EENT Eyes: no change in vision, no discharge, no pain, no photophobia Ears: no ear discharge, no ear pain, no tinnitus Nose, mouth and throat: no dysphagia, no nasal discharge, no neck pain, no sore throat - Cardiovascular Cardiovascular ROS IM: no chest pain, no diaphoresis, no dyspnea, no lightheadedness, no palpitations, no syncope - Respiratory Respiratory: dyspnea, no cough, no wheezing, no excessive phlegm production - Gastrointestinal Gastrointestinal: bloating, no abdominal pain, no diarrhea, no hematemesis, no hematochezia, no melena, no nausea, no vomiting - Musculoskeletal Musculoskeletal ROS IM: no numbness, no tingling - Integumentary Integumentary IM: no rash, no unusual bruising - Neurological Neurological ROS: no confusion, no convulsions, no focal weakness, no numbness, no tingling, no tremor(s) - Hematologic/Lymphatic Hematologic/Lymphatic: no easy bruising - Constitutional Vitals: Temp Pulse Resp BP Pulse Ox 98.1 F 67 17 133/68 100 10/07/17 11:19 10/07/17 11:19 10/07/17 11:19 10/07/17 11:19 10/07/17 11:19 General appearance: Present: A&O X 3, answers questions appropriately Exam: 10 pt Exam as detailed below - Head Head exam: Present: atraumatic, normocephalic - Eye Eye exam: Present: PERRL, conjuntiva pink, sclera anicteric Pupils: Present: PERRL - Neck Neck exam general surgery: Present: supple, trachea midline. Absent: lymphadenopathy - Respiratory Respiratory exam: Present: wheezes. Absent: accessory muscle use, CTAB, rales, rhonchi - Cardiovascular Cardiovascular exam: Present: RRR, +S1, +S2. Absent: diastolic murmur, gallop, rubs, systolic murmur - GI/Abdominal GI/Abdominal exam: Present: distended, normal bowel sounds, soft, no peritoneal signs. Absent: tenderness - Extremities Exam Extremities exam: Present: warm, radial pulses palpable and symmetrical. Absent : calf tenderness, cyanotic, pedal edema - Neurological Exam Neurological exam: Present: CN II-XII intact, oriented X3 (Occasional disorientation), no focal deficits. Absent: pronater drift, facial droop, speech deficit - Skin Skin exam: Present: dry, intact Internal Med - H&P Results - Labs CBC & Chem 7: 10/07/17 11:34 10/07/17 11:34 Labs: Short CBC 10/07/17 Range/Units 11:34 WBC 7.2 (4.3-11.1) K/mcL Hgb 11.9 L (12.9-16.9) g/dL Hct 35.0 L (37.5-50.1) % Plt Count 126 L (140-400) K/mcL Neutrophils # 4.8 (1.6-8.9) K/mcL BMP 10/07/17 11:34 Sodium 133 L Potassium 4.1 Chloride 105 Carbon Dioxide 22 L BUN 24 H Creatinine 1.39 H Glucose 106 H Calcium 9.0 Cardiac Enzymes 10/07/17 Range/Units 11:34 Troponin I < 0.03 (< 0.04) ng/mL Liver Function 10/07/17 Range/Units 11:34 Total Bilirubin 1.5 H (0.3-1.0) mg/dL Direct Bilirubin 0.6 H (0.0-0.2) mg/dL AST 101 H (13-39) Units/L ALT 33 (7-52) Units/L Alkaline Phosphatase 95 (34-104) Units/L Albumin 2.7 L (3.5-5.7) g/dL - Impressions ITS Impressions Chest X-Ray 10/07/17 11:25 IMPRESSION: 1. No active pulmonary disease. D/ / Sahil Piper MD / Sahil Piper MD Interpreting Provider: Sahil Piper MD - Assessment and plan (1) Ascites Current Visit: Yes Status: Chronic Assessment and plan: Consultation to interventional radiology for paracentesis Daily weights Monitor I and O Monitor daily labs Patient and family would like to set up scheduled IR visits, to have paracentesis, outpatient. They would like to do before discharge, to avoid numerous admissions. Qualifiers: Ascites type: other type Qualified Code(s): R18.8 - Other ascites (2) Cirrhosis Current Visit: Yes Status: Chronic Assessment and plan: Uncontrolled Managed outpatient Daily weight Monitor daily labs Check Ammonia level We will add Aldactone 25 mg by mouth daily for fluid retention Qualifiers: Hepatic cirrhosis type: other cirrhosis Qualified Code(s): K74.69 - Other cirrhosis of liver (3) Abdominal distention Current Visit: No Status: Acute Assessment and plan: Consultation to interventional radiology for paracentesis Daily weights Monitor I and O Monitor daily labs Add spironlactone 25 mg po daily Patient and family would like to set up scheduled IR visits, to have paracentesis, outpatient (4) Diabetes Current Visit: No Status: Chronic Assessment and plan: Glucose is controlled Accu-Cheks before meals and at bedtime with mild insulin coverage Qualifiers: Diabetes mellitus type: type 2 Diabetes mellitus residential insulin use: without residential use Diabetes mellitus complication status: with hypoglycemia Diabetes mellitus complication detail: without coma Qualified Code(s): E11.649 - Type 2 diabetes mellitus with hypoglycemia without coma (5) Essential hypertension Current Visit: No Status: Chronic Assessment and plan: Blood pressure is controlled Continue propanolol (6) History of alcohol dependence Current Visit: No Status: Chronic Assessment and plan: States he quit drinking alcohol nearly two months ago. Will monitor for any alcohol withdraw. (7) Tobacco abuse Current Visit: Yes Status: Chronic Assessment and plan: Patient is current smoker Smoking cessation - Time Spent With Patient Total time spent is greater than 50% in coordination of care (as documented) at patient's floor/unit and/or counseling patient: 25 - 35 minutes
[2017-10-07] MEDS ORDERED: Naloxone 0.4 MG/ML INJ IVP PRN (14:33)
--- NOTE | 2017-10-07 15:06 | IR Procedure Note ---
Date of procedure: 10/07/17 Consent Obtained: Verbal consent, Written consent Timeout: Correct patient and procedure verified, Correct site verified, Time out performed, Skin prep completed Local anesthetic: Lidocaine 1% Indications: Ascites Procedure Performed: Paracentesis Was there an language assistant present: Yes Wafer Slicer: Jann Ross Site/Technique: US guided paracentesis Results/Findings: Moderate ascites Estimated blood loss (cc): 2 Complications: None; Tolerated procedure well Post Procedure Treatment Plan: Patient to be admitted Specimen: Serous ascites
--- NOTE | 2017-10-07 15:16 | Event Note ---
Date of Encounter: 10/07/17 Time of Encounter: 15:14 I have performed a face- to face examination of this patient and participated in formulation of jackson components of Assessment and plan with the GUIDANCE SERVICES COORDINATOR. 61-year-old male with a history of cirrhosis most likely due to alcoholism with repetitive ascites who is now coming back with what looks like is his third episode of needing ascites tap He most likely needs a large volume paracentesis subsequently he will need IV albumin and I have discussed this with the nurse practitioner. He does not have a white count or abdominal tenderness. He is at a risk for SBP but does not clinically have SBP at this point. He also will need a process set up with outpatient interventional radiology to get these taps until he has a clear-cut definitive plan to manage his end-stage liver disease. Consider gastroenterology consult versus outpatient GI follow-up and set up His vital signs are stable and abdomen is distended but nontender to palpation on superficial and deep palpation. Rest of the assessment and plan is as per the nurse practitioner documentation Full H&P to follow as per nurse practitioner
[2017-10-07] MEDS ORDERED: Dextrose Gel 15 GM/37.5 ML TUBE PO PRN ×2 (15:31)
[2017-10-07] MEDS ORDERED: *HR* Dextrose 50 % in Water (Syg) 50 ML SYRINGE IVP PRN (15:31)
[2017-10-07] MEDS ORDERED: D5% in Water 1,000 ML IVC PRN (15:31)
[2017-10-07] MEDS: Albumin 25% 25gram/100mL 25 GM/100 ML IV.SOLN IVPB ONE ×2 (15:44→16:43)
[2017-10-07 16:10] LABS: Basophils % 0.6 %; Eosinophils # 0.4 K/mcL (0.0-0.6); Eosinophils % 5.2 %; Hematocrit 34.2 % (37.5-50.1); Hemoglobin 11.5 g/dL (12.9-16.9); Immature Granulocytes % 0.4 % (0-4); Lymphocytes # 1.7 K/mcL (0.6-4.6); Mean Corpuscular HGB Conc 33.6 g/dL (31.6-35.5); Mean Corpuscular Hemoglobin 34.6 pg (28.0-33.3); Mean Platelet Volume 9.3 fL (9.4-12.4); Monocytes # 0.6 K/mcL (0.0-1.3); Monocytes % 8.5 %; Neutrophils # 4.2 K/mcL (1.6-8.9); Platelet Count 126 K/mcL (140-400); Red Blood Count 3.32 M/mcL (4.19-5.50); Red Cell Distribution Width 13.9 % (11.5-14.5); Segmented Neutrophils % 60.3 %
--- NOTE | 2017-10-07 16:16 | Electrocardiograph Report ---
[address] [place] [address] Test Date: 2017-10-07 Pat Name: Doreen Brunner Department: Room: 3A33 Gender: M [employer] Manufacturing Supervisor: : [id number] Requested By: Arslan Cohen Order Number: [id number] Reading MD: Onelia Herrera Measurements Intervals [place] Rate: 62 P: 63 UT: 159 QRS: 8 QRSD: 98 T: 38 QT: 460 QTc: 468 Interpretive Statements Sinus rhythm Low voltage, extremity leads Electronically Signed On 10-07-2017 16:14:53 EDT by Onelia Herrera
[2017-10-07] MEDS: Spironolactone 25 MG TABLET PO SCH (16:44)
[2017-10-07] MEDS: Insulin LISPRO 300 UNITS/3 ML VIAL SQ SCH (16:44)
[2017-10-07] MEDS ORDERED: Albumin 25% 25gram/100mL 25 GM/100 ML IV.SOLN IVPB ONE (17:00)
[2017-10-07] MEDS ORDERED: Insulin LISPRO 300 UNITS/3 ML VIAL SQ SCH (21:00)
[2017-10-07] MEDS ORDERED: Nicotine 21 MG PATCH.TD24 TD SCH (22:15)
[2017-10-07 22:48] LABS: Basophils # 0.1 K/mcL (0.0-0.2); Basophils % 0.7 %; Eosinophils # 0.4 K/mcL (0.0-0.6); Eosinophils % 5.1 %; Hematocrit 30.1 % (37.5-50.1); Hemoglobin 10.2 g/dL (12.9-16.9); Immature Granulocytes % 0.3 % (0-4); Lymphocytes # 1.5 K/mcL (0.6-4.6); Lymphocytes % 21.3 %; Mean Corpuscular HGB Conc 33.9 g/dL (31.6-35.5); Mean Corpuscular Hemoglobin 33.9 pg (28.0-33.3); Mean Platelet Volume 9.3 fL (9.4-12.4); Monocytes # 0.7 K/mcL (0.0-1.3); Monocytes % 9.8 %; Neutrophils # 4.5 K/mcL (1.6-8.9); Platelet Count 120 K/mcL (140-400); Red Blood Count 3.01 M/mcL (4.19-5.50); Segmented Neutrophils % 62.8 %
[2017-10-08] MEDS ORDERED: Melatonin 3 MG TABLET PO ONE (00:24)
[2017-10-08 07:18] LABS: BUN/Creatinine Ratio 19 (6-26); Blood Urea Nitrogen 22 mg/dL (8-23); Calcium 8.8 mg/dL (8.6-10.3); Carbon Dioxide 22 mEq/L (23-29); Chloride 108 mEq/L (98-107); Glucose 139 mg/dL (70-105); Osmolality,Calculated 286 (280-300); Potassium 3.6 mEq/L (3.5-5.1); Sodium 135 mEq/L (136-145); eGFR For Non-African Americans > 60 (> 60)
[2017-10-08] MEDS: Insulin LISPRO 300 UNITS/3 ML VIAL SQ SCH (08:25)
[2017-10-08 10:19] VITALS: BP 109/63
[2017-10-08] MEDS: Spironolactone 25 MG TABLET PO SCH (10:43)
--- NOTE | 2017-10-08 10:43 | Discharge Summary ---
- NOTES TO OUTPATIENT PROVIDER Notes to Outpatient Provider: Patient admitted to observation for paracentensis , s/p 5.2 L drained, received albumin. Appt set up wit IR for drainage on 10/15 as well as PCP on 10/16. Follow up with oncology to discuss liver and peritoneal biopsy results, follow up with GI for management of cirrhosis. Lasix and Spironolactone still on hold, recommend restarting by PCP if renal function and blood pressure allows. Recommended lactulose prn for 2-3 BM per day. Patient and family at the bedside verbalize understanding plan of care Date of Encounter: 10/08/17 Time of Encounter: 10:42 - Discharge Diagnosis (1) Hemochromatosis Priority: Primary Status: Suspected Qualifiers: Hemochromatosis type: hereditary Qualified Code(s): E83.110 - Hereditary hemochromatosis (2) Ascites Priority: Primary Status: Resolved Qualifiers: Ascites type: other type Qualified Code(s): R18.8 - Other ascites (3) Cirrhosis Priority: Secondary Status: Chronic Qualifiers: Hepatic cirrhosis type: other cirrhosis Qualified Code(s): K74.69 - Other cirrhosis of liver (4) Diabetes mellitus with peripheral angiopathy without gangrene Priority: Secondary Status: Chronic Qualifiers: Diabetes mellitus type: type 2 Diabetes mellitus correction insulin use: without intermodal owner operator truck driver use Qualified Code(s): E11.51 - Type 2 diabetes mellitus with diabetic peripheral angiopathy without gangrene (5) DVT prophylaxis Priority: Primary Status: Resolved (6) Esophageal varices in alcoholic cirrhosis Priority: Primary Status: Chronic (7) Essential hypertension Priority: Primary Status: Chronic (8) History of alcohol dependence Priority: Primary Status: Chronic (9) Liver mass Priority: Primary Status: Suspected (10) Mixed hyperlipidemia Priority: Secondary Status: Chronic (11) Tobacco abuse Priority: Secondary Status: Chronic Hospital course: Mr. Brunner is a 61 year old male with PMH of Cirrhosis, decompendated, hx of GIB from bleeding varices, suspected liver mass, suspected hemochromatosis, DM, HTN, tobacco abuse Patient admitted to observation for paracentensis, s/p 5.2 L drained, received albumin. CBC unremarkable, mild dehydration on renal function which has resolved Ammonia was WNL Appt set up wit IR for drainage on 10/15 as well as PCP on 10/16 Follow up with oncology to discuss liver and peritoneal biopsy results, follow up with GI for management of cirrhosis Lasix and Spironolactone still on hold, recommend restarting by PCP if renal function and blood pressure allows. Recommended lactulose prn for 2-3 BM per day. Patient and family at the bedside verbalize understanding plan of care and he is discharged in stable clinical condition Discharge discussed with: patient, family, nurse Time spent discussing smoking cessation with patient: 3 to 10 minutes - Time Spent with Patient Total time spent providing and/or coordinating discharge services: Greater than 30 minutes - Discharge Medications Home Medications: Cyclobenzaprine HCl 5 mg PO BID PRN 08/26/17 [History] Glimepiride [Amaryl] 2 mg PO DAILY 08/26/17 [History] Pioglitazone [Actos] 45 mg PO DAILY 08/26/17 [History] Citalopram Hydrobromide [Citalopram HBr] 20 mg PO DAILY 09/23/17 [History] Omeprazole [PriLOSEC] 40 mg PO BIDAC #60 capsule. 09/27/17 [Rx] Propranolol [Inderal] 10 mg PO HS #30 tablet 09/27/17 [Rx] Allergies/Adverse Reactions: 3 Allergy/AdvReac Type Severity Reaction Status Date / Time shellfish derived Allergy Anaphylaxis Verified 11/08/15 11:29 budesonide [From Symbicort] AdvReac ELEVATED BP Verified 11/08/15 11:29 cilostazol AdvReac SWEATS Verified 11/08/15 11:29 Formoterol [From Symbicort] AdvReac ELEVATED BP Verified 11/08/15 11:29 gabapentin [From Neurontin] AdvReac Confusion Verified 11/08/15 11:29 naproxen [From Naprosyn] AdvReac Nausea Verified 11/08/15 11:29 tramadol AdvReac Nausea Verified 11/08/15 11:29 Date of admission: 10/07/17 14:28 Primary care physician: Jannette Medina, Discharging clinician: Wilman Hong Anticipated date of discharge: 10/08/17 - Constitutional Vitals: Temp Pulse Resp BP Pulse Ox 97.7 F 60 15 109/63 100 10/08/17 10:18 10/08/17 10:18 10/08/17 10:18 10/08/17 10:18 10/08/17 10:18 General appearance: Present: A&O X 3, pleasant, no acute distress, answers questions appropriately Exam: Exam as detailed below - Head Head exam: Present: atraumatic, normocephalic - Eye Eye exam: Present: PERRL, conjuntiva pink, sclera anicteric Pupils: Present: PERRL - Neck Neck exam general surgery: Present: supple, trachea midline. Absent: lymphadenopathy - Respiratory Respiratory exam: Present: CTAB. Absent: accessory muscle use, rales, rhonchi, wheezes - Cardiovascular Cardiovascular exam: Present: RRR, +S1, +S2. Absent: diastolic murmur, gallop, rubs, systolic murmur - GI/Abdominal GI/Abdominal exam: Present: normal bowel sounds, soft, no peritoneal signs. Absent: distended, tenderness - Extremities Exam Extremities exam: Present: warm, radial pulses palpable and symmetrical. Absent : calf tenderness, cyanotic, pedal edema - Neurological Exam Neurological exam: Present: CN II-XII intact, oriented X3, no focal deficits. Absent: pronater drift, facial droop, speech deficit - Skin Skin exam: Present: dry, intact - Patient Status Disposition: Home, Self-Care Condition: Good Functional capacity at discharge: independent ambulation Overall status at discharge: patient is back to baseline - Discharge Instructions Instructions: Cirrhosis (DC), Ascites (DC) Follow Up With: [facility] [Other] - 10/15/17 11:30 am (PREP: If you are on blood thinners; aspirin needs stopped 3-5 days prior, if on coumadin or plavix it will need stopped 5-7 days prior. You may have a light breakfast the day of, and if you take any meds you are allowed to take them the day of also. You will need to shower or bath with an antibacterial soap for 3 days prior and the day of, and wear loose fitting clothes. Thank you) Jannette Medina CNP [Primary Care Provider] - 10/16/17 1:00 pm - Diet and Activity Activity: resume usual activities as tolerated Diet: diabetic diet
[2017-10-08] MEDS ORDERED: Lactulose Oral Soln 20 GM/30 ML UDC PO PRN (12:00)
== END 2017-10-08 11:39 | disposition home or self-care (01) ==
LOC: 3ANU 11:01 → EMEROOARM 11:01 → SUATTDRO 14:28 → 3ANU 15:00
PROVIDERS: ADMIT Internal Medicine; ATTEND Internal Medicine